=== PATIENT | female | born 1975 | race Hispanic/Latino ===

== ENCOUNTER 2017-08-07 20:36 | Emergency (ER) | payer BC, MEDICARE ==
--- NOTE | 2017-08-07 21:13 | RAD ---
LEFT ELBOW: 08/07/17 Four views. HISTORY: Fall with injury to elbow. There is a subtle radial neck fracture. There is associated joint effusion. No other abnormality. IMPRESSION: Radial neck fracture with associated joint effusion. POS: [facility]
[2017-08-07] MEDS ORDERED: traMADol HCl 50 MG TAB ONE (22:23)
== END 2017-08-07 23:18 | disposition home or self-care (01) ==
LOC: ERS 20:36
DX: S52.132A Displaced fracture of neck of left radius, initial encounter for closed fracture (principal); E11.9 Type 2 diabetes mellitus without complications; E78.5 Hyperlipidemia, unspecified; I10 Essential (primary) hypertension; Z79.899 Other long term (current) drug therapy; Z79.82 Long term (current) use of aspirin; W19.XXXA Unspecified fall, initial encounter; Y92.009 Unspecified place in unspecified non-institutional (private) residence as the place of occurrence of the external cause
CPT/HCPCS: 29105

== ENCOUNTER 2017-12-02 20:38 | Inpatient (IN) | payer BC, MEDICARE ==
[2017-12-02 22:42] LABS: Bilirubin Negative (Negative); Blood, Urine Trace (Negative); Clarity CLOUDY (Clear); Glucose, Urine (Dipstick) Negative (Negative); Leukocyte Small (Negative); Nitrite Positive (Negative); Protein, Urine (Dipstick) 30 mg/dL (Neg-Trace); Specific Gravity, Urine 1.011 (1.002-1.036); Urobilinogen 0.2 mg/dL (0.2-1.0); pH, Urine 5.5 (5.0-9.0)
[2017-12-02 22:45] LABS: Bacteria/HPF 2+ HPF (None Seen); Hyaline Casts/LPF 0-3 HYALINE CAST LPF (0-3 Hyaline); WBC/HPF 21-50 HPF (0-3)
--- NOTE | 2017-12-02 22:47 | RAD ---
RADIOGRAPH CHEST 2 VIEWS: 12/02/17 HISTORY: 42-year-old female with fever, bodyaches, and chills. FINDINGS: There is no air space density, pulmonary edema, pleural effusion, or pneumothorax. IMPRESSION: No acute pulmonary findings. jn [] POS: [facility]
[2017-12-02] MEDS ORDERED: Acetaminophen 325 MG TAB ONE (23:26)
[2017-12-02] MEDS ORDERED: Sodium Chloride 0.9% 100 ML ONE (23:26)
[2017-12-02] MEDS ORDERED: cefTRIAXone\\ROCEPHIN 2 GM VIAL ONE (23:26)
[2017-12-02] MEDS ORDERED: Ondansetron ODT 8 MG TAB ONE (23:26)
[2017-12-02 23:42] LABS: Hemoglobin 12.3 g/dL (12.0-16.0); Mean Corpuscular HGB CONC 33.2 g/dL (32.0-36.0); Mean Corpuscular Hemoglobin 31.2 pg (27.0-31.0); Mean Platelet Volume 8.4 fL (7.4-10.4); Platelet Count 191 thou/uL (130-400); RBC Distribution Width 12.3 % (11.5-14.5); Red Blood Cell (RBC) Count 3.94 mill/uL (4.20-5.40); White Blood Cell (WBC) Count 3.7 thou/uL (4.8-10.8)
[2017-12-03 00:01] LABS: ALT (SGPT) 21 U/L (8-55); AST (SGOT) 24 U/L (5-34); Albumin 4.3 g/dL (3.5-5.0); Alkaline Phosphatase 66 U/L (40-150); Anion Gap 15 mmol/L (10-20); BUN (Urea Nitrogen) 15 mg/dL (7.0-18.7); Bilirubin, Total 0.5 mg/dL (0.2-1.2); Calc. Creatinine Clearance 0 mL/min (70-130); Calcium 10.2 mg/dL (7.8-10.44); Carbon Dioxide 21 mmol/L (22-29); Chloride 104 mmol/L (98-107); Estimated GFR-MDRD 56; Globulin 2.9 g/dL (2.4-3.5); Glucose 236 mg/dL (70-105); Potassium 4.7 mmol/L (3.5-5.1); Protein, Total 7.2 g/dL (6.0-8.3); Sodium 135 mmol/L (136-145)
[2017-12-03 00:03] LABS: Eosinophils 8 % (0-10); Hypersemented Neutrophil SLIGHT; Lymphocytes 3 % (21-51); MDiff Complete? YES; Monocytes 3 % (0-10); Neutrophil 85 % (42-75); PLT Morphology Comment Appears Adequate
[2017-12-03 00:05] LABS: CKMB 2.5 ng/mL (0-6.6); Troponin I Less than 0.010 ng/mL (< 0.028)
[2017-12-03] MEDS ORDERED: Ondansetron ODT 8 MG TAB ONE (00:34)
[2017-12-03] MEDS ORDERED: Ondansetron HCl/PF 4 MG/2 ML Vial IVP PRN (01:00)
[2017-12-03] MEDS ORDERED: Promethazine HCl 25 MG/ML VIAL ONE (01:00)
[2017-12-03] MEDS ORDERED: Fentanyl 100 MCG/2 ML VIAL ONE (01:17)
[2017-12-03] MEDS ORDERED: HumaLOG 300 UNITS/3 ML VIAL SC PRN ×3 (01:28→09:30)
[2017-12-03] MEDS ORDERED: Dextrose 5% in Water 1,000 ML IV PRN (01:28)
[2017-12-03] MEDS ORDERED: Dextrose 50% Abboject 50 ML SYRINGE SLOW IVP PRN (01:28)
[2017-12-03] MEDS ORDERED: Ibuprofen 800 MG TAB ONE (02:47)
[2017-12-03 03:19] LABS: Hemoglobin 11.6 g/dL (12.0-16.0); Mean Corpuscular HGB CONC 32.5 g/dL (32.0-36.0); Mean Corpuscular Volume 95.5 fL (78.0-98.0); Mean Platelet Volume 8.9 fL (7.4-10.4); Platelet Count 129 thou/uL (130-400); RBC Distribution Width 12.4 % (11.5-14.5); Red Blood Cell (RBC) Count 3.75 mill/uL (4.20-5.40)
[2017-12-03 03:20] LABS: #Lymphocytes 0.1 thou/uL (1.20-3.40); #Monocytes 0.1 thou/uL (0.11-0.59); #Neutrophils 0.7 thou/uL (1.40-6.50); %Eosinophils 4.1 % (0.0-10.0); %Lymphocytes 13.5 % (21.0-51.0); %Neutrophils 73.4 % (42.0-75.0)
--- NOTE | 2017-12-03 03:30 | HP ---
PRIMARY CARE PHYSICIAN: Dr. Shazia Templeton. CODE STATUS: FULL code. TIME OF EVALUATION: 01:00 a.m. CC: fever, generalized weakness HISTORY OF PRESENT ILLNESS: This is a 42-year-old female patient with past medical history of hypertension; diabetes; kidney transplant in 04/2017; prior to that, the patient had dialysis 5.5 years. The patient came to the hospital having generalized weakness that was severe with nausea, vomiting, fever, chills. The symptoms started past Thursday, and has been gradually getting worse with no clear triggers, no alleviating factors. Transplant doctor has been called from ER by Dr. Crump, recommendation is to treat the patient here medically for infection. They will be available if needed. We will reconcile home meds also updated. Continue immunosuppression medication as well as the antibiotics for an infection. REVIEW OF SYSTEMS: Constitutional: The patient had fever, chills, generalized weakness. Respiratory: The patient denies cough. No sputum production. No shortness of breath. Cardiovascular: No chest pain, no palpitations. Gastrointestinal: The patient has nausea, vomiting. No diarrhea, no abdominal pain. 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 Not feeling lightheaded. Genitourinary : No burning on urination. Extremities: Right leg edema that is chronic. All other systems were reviewed and were negative except for the findings mentioned above. PAST MEDICAL HISTORY: The patient has a history of diabetes; obesity; end- stage renal disease, status post kidney transplant; hypertension; hyperlipidemia. PAST SURGICAL HISTORY: Left eye cataract, left arm dialysis shunt, left kidney transplant, history of tubal ligation. PSYCHIATRIC HISTORY: No previous psychiatric history. SOCIAL HISTORY: No alcohol, no drugs, no smoking history. FAMILY HISTORY: Father, diabetes. DRUG ALLERGIES: Allergies to AMLODIPINE. MEDICATIONS: Tacrolimus 0.5 mg, dose unknown; mycophenolate mofetil 500 mg, dose unknown; prednisone 500 mg daily; sulfamethoxazole and trimethoprim 400/80 mg, dose unknown; aspirin 81 mg daily; clonidine patch transdermal 0.1 mg in 24 hours, 1 patch daily; nifedipine 60 mg, dose unknown; metoprolol extended release 100 mg daily; pravastatin 20 mg daily; sertraline 50 mg daily; Ultram 50 mg q.6. hours p.r.n. PHYSICAL EXAMINATION: VITAL SIGNS: The patient presented with blood pressure 145/73 with heart rate 84, respiratory rate 16, temperature 99.6, T-max was 102.3. Blood pressure initially was in the high side with systolic 200 and diastolic 100. GENERAL APPEARANCE: The patient is alert, oriented, in mild distress due to chills, and no other symptoms. HEENT: Eye, normal conjunctivae. Dry oral mucosa. Anicteric. NECK: No JVD. RESPIRATORY: Bilateral air entry. No rales, no wheezing. Symmetric expansion. CARDIOVASCULAR: The patient is tachycardic. Regular rhythm. No murmurs, no gallop, no edema. ABDOMEN: Soft. Normal bowel sounds. MUSCULOSKELETAL: Baseline range of motion and strength. No tenderness. SKIN: Warm and intact. No pain, no rash, no redness. NEUROLOGIC: Baseline sensorium. No evidence of any new focal weakness. Baseline speech. Cranial nerve, sensory intact. PSYCHIATRIC: Good mood. No anxiety. Oriented x3. LABORATORY DATA: White count 3.7, hemoglobin 12.3, MCV 94, neutrophils 85. Chemistry: Sodium 135, carbon dioxide 21, glucose 236, GFR 56, creatinine 1.0. Anion gap is 15. Lactic acid is 1.5. LFTs are normal. Beta natriuretic peptide is 100.8. Urine was reviewed. The patient has white count of 35-50 in urine with small leukocyte esterase and positive urine for nitrite. X-ray was reviewed. The patient has no acute pulmonary findings. ASSESSMENT AND PLAN: 1. Sepsis. The patient presented with tachycardia, fever, leukopenia. Source is urinary tract infection. The patient is immunosuppressed due to medication for kidney transplant. We will reconcile home medications, continue antibiotics , adjust the treatment depending on cultures. 2. End-stage renal disease, status post kidney transplant. Transplant Center has been called and they have recommended for us to take the patient and treat for infection. They will be available if needed. Continue immunosuppression for kidney protection. 3. Uncontrolled diabetes. The patient has been placed on insulin, reconciled home meds, [id number] diet. 4. Nausea and vomiting, continue to be profuse. We will place the patient on symptomatic treatment. 5. Urinary tract infection. Reconcile antibiotics. We will start with broad spectrum given severe sepsis in an immunosuppressed host. 6. Uncontrolled hypertension. The patient had very high blood pressure on presentation; however, has dropped after being in the hospital. This could be related to worsening sepsis. For now, we will hold on blood pressure medications. This will need to be reconciled in the morning depending on the patient's clinical response. 7. Hypercholesterolemia. Low-cholesterol diet is advised. Reconcile home medications. 8. Deep venous thrombosis prophylaxis. 9. Hyponatremia. Sodium is 135, this is minimal. We will monitor. No need for any acute intervention. MTDD
[2017-12-03 04:16] LABS: Anion Gap 17 mmol/L (10-20); BUN (Urea Nitrogen) 15 mg/dL (7.0-18.7); Calc. Creatinine Clearance 0 mL/min (70-130); Calcium 8.6 mg/dL (7.8-10.44); Carbon Dioxide 13 mmol/L (22-29); Chloride 109 mmol/L (98-107); Estimated GFR-MDRD 59; Glucose 256 mg/dL (70-105); Potassium 4.1 mmol/L (3.5-5.1); Sodium 135 mmol/L (136-145)
[2017-12-03] MEDS ORDERED: Insulin NPH/Reg Insulin Hm 300 UNITS/3 ML VIAL SC SCH (09:00)
[2017-12-03] MEDS ORDERED: Famotidine 20 MG TAB PO PRN (09:12)
--- NOTE | 2017-12-03 09:32 | PDOC.PN ---
- Subjective Encounter Start Date: 12/03/17 (f/u sepsis) Encounter Start Time: 09:31 Subjective: Pt reports feeling better. Denies any pain, n/v currently -: reports some blood in her urine this morning - Objective Result Diagrams: 12/03/17 10:13 12/03/17 02:58 Phys Exam - Physical Examination Constitutional: NAD Respiratory: no wheezing, no rales, no rhonchi Cardiovascular: RRR, no significant murmur Gastrointestinal: soft, non-tender, no distention, positive bowel sounds Musculoskeletal: no edema Neurological: non-focal, moves all 4 limbs Skin: no rash Deviation from normal: skin over left fistula intact Dx/Plan (1) Sepsis Code(s): A41.9 - SEPSIS, UNSPECIFIED ORGANISM Status: Acute (2) S/P kidney transplant Code(s): Z94.0 - KIDNEY TRANSPLANT STATUS Status: Chronic (3) Diabetes Code(s): E11.9 - TYPE 2 DIABETES MELLITUS WITHOUT COMPLICATIONS Status: Chronic Qualifiers: Diabetes mellitus type: type 2 Diabetes mellitus residential insulin use: with residential use Diabetes mellitus complication status: with kidney complications (4) UTI (urinary tract infection) Status: Acute Qualifiers: Urinary tract infection type: site unspecified Hematuria presence: with hematuria Qualified Code(s): N39.0 - Urinary tract infection, site not specified; R31.9 - Hematuria, unspecified; R31.9 - Hematuria, unspecified (5) Hypertension Code(s): I10 - ESSENTIAL (PRIMARY) HYPERTENSION Status: Chronic Qualifiers: - Plan * sepsis presumed urinary source - follow cultures * Continue broad spectrum abx * Renal transplant * Continue anti-rejection meds * continue prednisone at current dosing - if hypotensive, may need to have stress dose steroids * blood pressure normal currently - lower side of normal * Hold bp meds, except metoprolol at lower dose with hold precautions * As bp increases - resume procardia and clonidine * Pt with n/v earlier - will reduce long acting insulin and use a sliding scale. Home is nph - 20 uits am, and 10 units pm. She uses humalog scheduled 10 units am, 15 units lunch and dinner plus correction scale. Will work back towards this depending on her PO intake * Consult renal/Dr. Cook * * dvt prophy - lovenox * gi prophy - not indicated, is on prn pepcid at home * code status full * * reviewed plan of care with patient and family, no questions or further needs at end of eval * pt at high risk in current condition. * * * Called by RN for positive blood culture - presumptive gram negative waylon.
[2017-12-03] MEDS: Sodium Chloride 0.9% 1,000 ML IV SCH ×3 (10:21→23:00)
[2017-12-03] MEDS: predniSONE 5 MG TAB PO SCH (10:22)
[2017-12-03] MEDS: Mycophenolate 250 MG CAP PO SCH ×2 (10:23→21:35)
[2017-12-03] MEDS: Tacrolimus 1 MG CAP PO SCH ×2 (10:23→21:35)
[2017-12-03] MEDS: Aspirin 81 mg Enteric Coated Tablet PO SCH (10:23)
[2017-12-03 10:26] LABS: Hemoglobin 10.8 g/dL (12.0-16.0); Mean Corpuscular HGB CONC 33.7 g/dL (32.0-36.0); Mean Corpuscular Hemoglobin 31.9 pg (27.0-31.0); Mean Corpuscular Volume 94.7 fL (78.0-98.0); Mean Platelet Volume 8.8 fL (7.4-10.4); Platelet Count 131 thou/uL (130-400); RBC Distribution Width 12.2 % (11.5-14.5); Red Blood Cell (RBC) Count 3.39 mill/uL (4.20-5.40); White Blood Cell (WBC) Count 4.2 thou/uL (4.8-10.8)
--- NOTE | 2017-12-03 10:31 | CON ---
DATE OF CONSULTATION: 12/03/2017 HISTORY OF PRESENT ILLNESS: Ms. Thompson is a 42-year-old female with known history of hyperten johann, diabetes mellitus, and ESRD. The patient was on dialysis for 5 years and got transplanted 04/16. She was admitted due to fever and chills secondary to presumed UTI. We are now being consulted for management of her renal transplant as well as for the immunosuppression as well as for intake of her immunosuppressive regimen. This morning she is feeling better. REVIEW OF SYSTEMS: Positive for fever and chills. Positive for dysuria, no urinary frequency, no di arrhea, no productive cough, positive for fever and chills, no headache, no diplopia, no sore throat, occasional joint pains. Positive for myalgia, no abdominal pain, no melena, no hematemesis, no head ache, no sore throat, no syncopal episode, no productive cough, no shortness of breath. HOME MEDICATIONS: CellCept 500 mg 2 tabs b.i.d., Levaquin 750 mg IV q.24 hours, Humalog sliding scal e, Humulin 70/30 20 units subcu b.i.d., Lovenox 40 mg subcu every day, Ecotrin 81 mg daily, ceftriaxo ne 1 gram IV daily, prednisone 5 mg once a day, Zocor 10 mg at bedtime, Zoloft 50 mg tab once a day, pravastatin 20 mg at bedtime, tacrolimus 3 mg in the morning, 2 mg at night, Bactrim-DS 1 tab daily, status post vancomycin. PAST MEDICAL HISTORY: 1. ESRD secondary to diabetic nephropathy - recently underwent a renal transplant. 2. Type 1 diabetes mellitus. 3. Hypertension. 4. Depression. 5. Hyperlipidemia. 6. Recently diagnosed UTI. 7. History of diabetic retinopathy. PAST SURGICAL HISTORY: 1. The patient is a status post repair of a traction retinal detachment - right eye by Dr. Thomas. 2. Status post AV fistula placement. 3. Status post cuffed hemodialysis catheter placement. 4. Status post bilateral tubal ligation. FAMILY HISTORY: Positive family history of ESRD. ALLERGIES: None. TRAUMA: None. IMMUNIZATIONS: Up to date. HOSPITALIZATIONS: Please see past medical history. SOCIAL HISTORY: The patient is , 2 children, lives in [place]. She used to work as a grocer y employee. Education; high school. Used to smoke, but currently no longer smoking. Alcohol; occas ional. No IV drug abuse. Status post blood transfusion. PHYSICAL EXAMINATION: VITAL SIGNS: Blood pressure is currently noted at 140/70, heart rate 70. GENERAL: Awake, alert, comfortable, not in distress. SKIN: Adequate turgor. HEENT: She has pinkish conjunctivae, anicteric sclerae. NECK: No neck mass, no carotid bruits, no JVD. CHEST: No deformities. LUNGS: Clear breath sounds, no wheezing, no crackles. HEART: Normal sinus rhythm. No murmur, no gallops or rubs. ABDOMEN: Globular, soft, nontender, no masses. EXTREMITIES: No edema, no deformities. NEUROLOGIC: Awake, oriented to 3 spheres. Moving all extremities. No tremors, no asterixis, no emily capri. LABORATORY: 12/03/2017 - White count is 1 with a hemoglobin of 11.6, hematocrit is 35.8, platelet co unt is 129,000. 12/02/2017 - White count was 3.7, hemoglobin 12.3, hematocrit 37. 12/03/2017 - Sodium 135, potassium 4.1, chloride 109, carbon dioxide 13 with a BUN of 15, creatinine 1.02, glucose 256, calcium 8.6. BNP is 108. Troponin I less than 0.010. Urinalysis shows white cells of 21-50, RBC 4-6, protein 30. Chest x-ray of 12/02/2017 shows no acute pulmonary findings. ASSESSMENT AND PLAN: 1. Status post cadaveric renal transplant. The patient received transplant on 04/2017, renal functi on remains stable. The plan is to continue current immunosuppressive regimen. We will recheck tacro limus level in a.m. Continue current prednisone and CellCept. 2. Decreased white count. This may be a lab error. However, we will recheck CBC again. If this is persistently low, we may need to adjust the CellCept at the present time. She is currently taking C ellCept at 1 gram p.o. b.i.d. We may need to consider decreasing this to 750 mg p.o. b.i.d. if the l eukopenia is persistent. 3. Urinary tract infection, on empiric IV antibiotics. Overall I agree with current management.
[2017-12-03] MEDS: Enoxaparin Sodium 40 MG/0.4 ML SYRINGE SC SCH (10:33)
[2017-12-03 10:53] LABS: Band 6 % (5-11); Dohle Bodies SLIGHT; Eosinophils 3 % (0-10); Lymphocytes 11 % (21-51); MDiff Complete? YES; Monocytes 10 % (0-10); Neutrophil 69 % (42-75); PLT Morphology Comment Appears Adequate; Polychromasia SLIGHT = 2-3 cells (100X) (0-2/hpf); Vacuoles SLIGHT
[2017-12-03 11:00] VITALS: BMI 34.6
--- NOTE | 2017-12-03 16:32 | PDOC.EVN ---
Event Note - Event Note Event Note: Rn reports that pt taking PO well, used her own insulin for lunch and is currently in the 200's - will order her usual insulin dosing for us to administer or her.
[2017-12-03] MEDS: HumaLOG 300 UNITS/3 ML VIAL SC SCH (17:32)
--- NOTE | 2017-12-03 19:18 | PDOC.EVN ---
Event Note - Event Note Event Note: Given that pt has gram negative bacteria in blood and urine, will d/c the Vancomycin with the goal of minimizing nephrotoxic agents. Discussed with Dr. Cook this as well as d/c the Septra for now - which is a prophylactic antibiotic for the transplant. Pt will continue to be covered with levaquin and rocephin.
[2017-12-03] MEDS ORDERED: Metoprolol Tartrate 50 MG TAB PO SCH (21:00)
[2017-12-03] MEDS ORDERED: NPH, Human Insulin Isophane 300 UNIT/3 ML VIAL SC SCH (21:00)
[2017-12-03] MEDS ORDERED: Sulfameth/Trimethoprim DS 800-160mg TAB PO SCH (21:00)
[2017-12-03] MEDS ORDERED: Metoprolol Tartrate 100 MG TAB PO SCH ×3 (21:00→21:45)
[2017-12-03] MEDS ORDERED: Simvastatin 5 MG TAB PO SCH (21:00)
[2017-12-03] MEDS ORDERED: Vancomycin HCl 1.25 GM in Sodium Chloride 0.9% 250 ML 250 ML IVPB SCH (21:00)
[2017-12-03] MEDS ORDERED: Sodium Chloride 0.9% 1,000 ML IV SCH (21:15)
[2017-12-03] MEDS: Pravastatin Sodium 20 MG TAB PO SCH (21:34)
[2017-12-03] MEDS: NPH, Human Insulin Isophane 300 UNIT/3 ML VIAL SC SCH (21:36)
[2017-12-03] MEDS: HumaLOG 300 UNITS/3 ML VIAL SC PRN (21:44)
[2017-12-04] MEDS: Acetaminophen 325 MG TAB PO PRN ×3 (00:17→20:10)
[2017-12-04] MEDS: cloNIDine 0.1 MG TAB PO PRN (00:17)
[2017-12-04] MEDS ORDERED: cefTRIAXone\\ROCEPHIN 1 GM in Sodium Chloride 0.9% 100 ML IVPB SCH (00:30)
[2017-12-04 04:11] LABS: ALT (SGPT) 16 U/L (8-55); AST (SGOT) 24 U/L (5-34); Albumin 3.4 g/dL (3.5-5.0); Alkaline Phosphatase 47 U/L (40-150); Anion Gap 13 mmol/L (10-20); BUN (Urea Nitrogen) 16 mg/dL (7.0-18.7); Bilirubin, Total 0.3 mg/dL (0.2-1.2); Calc. Creatinine Clearance 97 mL/min (70-130); Calcium 8.6 mg/dL (7.8-10.44); Carbon Dioxide 18 mmol/L (22-29); Chloride 112 mmol/L (98-107); Estimated GFR-MDRD 66; Globulin 2.3 g/dL (2.4-3.5); Glucose 155 mg/dL (70-105); Protein, Total 5.7 g/dL (6.0-8.3); Sodium 139 mmol/L (136-145)
[2017-12-04 05:56] LABS: Band 12 % (5-11); Eosinophils 2 % (0-10); Hemoglobin 10.4 g/dL (12.0-16.0); Lymphocytes 11 % (21-51); MDiff Complete? YES; Mean Corpuscular HGB CONC 32.6 g/dL (32.0-36.0); Mean Corpuscular Hemoglobin 31.3 pg (27.0-31.0); Mean Corpuscular Volume 96.1 fL (78.0-98.0); Neutrophil 75 % (42-75); Platelet Count 132 thou/uL (130-400); RBC Distribution Width 12.4 % (11.5-14.5); Red Blood Cell (RBC) Count 3.33 mill/uL (4.20-5.40); White Blood Cell (WBC) Count 3.1 thou/uL (4.8-10.8)
--- NOTE | 2017-12-04 07:35 | PRG ---
DATE OF SERVICE: 12/04/2017 SUBJECTIVE: Ms. Thompson is a 42-year-old female who is status post renal transplant, admitted for a UTI/Escherichia coli bacteremia and being followed by the Renal Service for her immunosuppressi ve regimen management. She is complaining of some bloatedness today. However, denies any chest pain , shortness of breath. Currently receiving IV antibiotics. PHYSICAL EXAMINATION: VITAL SIGNS: Blood pressure is 145/49, heart rate 87, respiratory rate 18, temperature 99.7, pulse o x 99%. GENERAL: Awake, alert, comfortable, not in distress. SKIN: Adequate turgor. HEENT: Pinkish conjunctivae. Anicteric sclerae. NECK: No neck mass, no carotid bruits, no JVD. CHEST: No deformities. LUNGS: Clear breath sounds. No wheezing, no crackles. HEART: Normal sinus rhythm. No murmur, no gallops or rubs. ABDOMEN: Globular, soft, nontender, no masses. EXTREMITIES: No edema, no deformities. Please note renal allograft is nontender. MEDICATIONS: 12/04/2017 - Reviewed. LABORATORY: 12/04/2017 - White count 3.1, hemoglobin 10.4, sodium 139, potassium 4, chloride 112, ca rbon dioxide 18, BUN 16, creatinine 0.93, glucose 155, calcium 8.6, AST 24, ALT 16, albumin 3.4. Blo od cultures showed E. coli. ASSESSMENT AND PLAN: 1. Escherichia coli bacteremia - on IV antibiotics. Currently on Rocephin and Levaquin. 2. Status post cadaveric renal transplant, stable. Renal function is within normal. Continue curre nt immunosuppressive regimen. No changes to be made. Bactrim-DS prophylactic placed on hold tempora rily. 3. Bloatedness - will keep the IV fluid to Hep-Lock. Recheck a CMP and CBC in a.m.
[2017-12-04] MEDS ORDERED: NPH, Human Insulin Isophane 300 UNIT/3 ML VIAL SC SCH (09:00)
[2017-12-04] MEDS: Mycophenolate 250 MG CAP PO SCH ×2 (09:22→20:10)
[2017-12-04] MEDS: Tacrolimus 1 MG CAP PO SCH ×2 (09:22→21:05)
[2017-12-04] MEDS: Enoxaparin Sodium 40 MG/0.4 ML SYRINGE SC SCH (09:23)
[2017-12-04] MEDS: predniSONE 5 MG TAB PO SCH (09:23)
[2017-12-04] MEDS: Metoprolol Tartrate 100 MG TAB PO SCH ×2 (09:23→21:05)
[2017-12-04] MEDS: Aspirin 81 mg Enteric Coated Tablet PO SCH (09:23)
[2017-12-04] MEDS: HumaLOG 300 UNITS/3 ML VIAL SC SCH ×3 (09:30→23:17)
[2017-12-04] MEDS: NPH, Human Insulin Isophane 300 UNIT/3 ML VIAL SC SCH ×2 (09:30→22:04)
[2017-12-04 09:45] LABS: Anion Gap 21 mmol/L (10-20); BUN (Urea Nitrogen) 17 mg/dL (7.0-18.7); Calc. Creatinine Clearance 88 mL/min (70-130); Calcium 12.6 mg/dL (7.8-10.44); Carbon Dioxide 12 mmol/L (22-29); Chloride 112 mmol/L (98-107); Estimated GFR-MDRD 59; Glucose 242 mg/dL (70-105); Potassium 5.9 mmol/L (3.5-5.1); Sodium 139 mmol/L (136-145)
[2017-12-04 10:22] LABS: Albumin 3.6 g/dL (3.5-5.0); BUN/Creatinine Ratio 15.74
[2017-12-04 10:25] LABS: Phosphorus 1.7 mg/dL (2.3-4.7)
[2017-12-04 12:13] LABS: Albumin 3.6 g/dL (3.5-5.0); Anion Gap 19 mmol/L (10-20); BUN (Urea Nitrogen) 18 mg/dL (7.0-18.7); BUN/Creatinine Ratio 17.82; Calc. Creatinine Clearance 89 mL/min (70-130); Calcium 9.9 mg/dL (7.8-10.44); Carbon Dioxide 14 mmol/L (22-29); Chloride 114 mmol/L (98-107); Estimated GFR-MDRD 60; Glucose 192 mg/dL (70-105); Phosphorus 1.5 mg/dL (2.3-4.7); Potassium 6.5 mmol/L (3.5-5.1); Sodium 140 mmol/L (136-145)
[2017-12-04] MEDS ORDERED: Sodium Phosphate 15 MMOL in Sodium Chloride 0.9% 250 ML 250 ML IVPB SCH (12:45)
[2017-12-04] MEDS ORDERED: Sodium Bicarbonate Tab 325 MG TAB PO SCH (12:45)
[2017-12-04] MEDS ORDERED: Meropenem 1 GM in Sodium Chloride 0.9% 100 ML IVPB SCH (14:00)
[2017-12-04 14:52] LABS: CO2 Tension 28.9 mmHg (35.0-45.0); O2 Tension (PaO2) 94.2 mmHg (80.0-100.0); pH, Arterial 7.48 (7.35-7.45)
[2017-12-04 14:53] LABS: Actual Bicarbonate (HCO3a) 21.2 mEq/L (22-28); Base Excess (BEa) -1.3 mEq/L (-2.0 to +3.0); Hemoglobin (Hb) 11.4 g/dL (12.0-16.0)
[2017-12-04 14:54] LABS: ALV-art Gradient 19.405 (0-20); Calcium, Ionized 1.2 mmol/L (1.12-1.30); Puncture Site ARTERIAL
[2017-12-04] MEDS: MEROPENEM 1 GM/50 ML 1 GM in Premix Bag 1 BAG IVPB SCH ×2 (15:46→23:22)
--- NOTE | 2017-12-04 17:30 | ULT ---
ADDENDUM: A resistive index within the arcuate arteries of the left kidney measured 0.77 and below. Resistive i ndex within the left proximal renal artery was slightly elevated at 0.85; however, the velocity withi n the left renal artery appeared within normal limits. POS: [facility]
[2017-12-04 17:55] LABS: Anion Gap 14 mmol/L (10-20); BUN (Urea Nitrogen) 13 mg/dL (7.0-18.7); Calc. Creatinine Clearance 107 mL/min (70-130); Calcium 9.3 mg/dL (7.8-10.44); Carbon Dioxide 18 mmol/L (22-29); Chloride 108 mmol/L (98-107); Estimated GFR-MDRD 74; Glucose 88 mg/dL (70-105); Potassium 4.4 mmol/L (3.5-5.1); Sodium 136 mmol/L (136-145)
[2017-12-04] MEDS: Pravastatin Sodium 20 MG TAB PO SCH (20:10)
[2017-12-04] MEDS: Sodium Bicarbonate Tab 325 MG TAB PO SCH (20:10)
--- NOTE | 2017-12-04 20:32 | CON ---
DATE OF CONSULTATION: 12/04/2017 REASON FOR CONSULTATION: Urinary tract infection. HISTORY OF PRESENT ILLNESS: Ms. Thompson is a 42-year-old lady who has history of hypertension, type 2 diabetes, previously on hemodialysis for management of end- stage renal disease secondary to type 2 diabetes, who underwent a kidney transplant in 04/2017, so this is seven months after the transplantation when she developed generalized weakness, fever and chills and vomiting without dysuria or pain. The initial findings included a BP 140/70, heart rate 84, temperature 99.6 with T-max of 102.3. The patient was alert with chills at the time of the exam. Lungs were clear. Heart exam showed tachycardia, but no murmurs. Abdomen is soft and nontender. Initial white cell count 3.7, hemoglobin 12.3, MCV 94, neutrophils 85%, and a creatinine of 1.0. Lactic acid 1.5. Urinalysis with 35-50 WBCs. The patient was started on Rocephin and levofloxacin and she has remained with intermittent temperature elevation since admission. One set of blood cultures revealed E. coli and urine culture with the same organism with pending susceptibility profile. Currently, Ms. Thompson is still feeling unwell, but a little bit better than on admission. No headaches, no change in visual symptoms related to diabetic retinopathy. No shortness of breath or chest pain, no abdominal pain, no dysuria, no diarrhea, no joint symptoms. PAST MEDICAL HISTORY: Type 2 diabetes, hypertension, obesity, end-stage renal disease, previously on hemodialysis through an AV fistula in left upper extremity. Recent kidney transplant about 7 months before this admission. PAST SURGICAL HISTORY: Also includes cataract operation, retinal laser therapy , dialysis AV fistula placement, tubal ligation. SOCIAL HISTORY: Never a smoker, no alcoholic beverage use. FAMILY HISTORY: Diabetes mellitus, type 2. ALLERGIES: NORVASC. MEDICATION LIST: At home, tacrolimus, mycophenolate, prednisone, sulfamethoxazole, trimethoprim, clonidine, nifedipine, metoprolol, pravastatin, Zoloft, and Ultram. PHYSICAL EXAMINATION: VITAL SIGNS: T-max of 101.8 recently recorded and blood pressure 170/60, pulse 107, respirations 20, and O2 saturation 94%. SKIN: No areas of skin breakdown. The patient has a peripheral IV access and does not have a Arita catheter. No lymphadenopathy. HEENT: Ocular movements are conjugate. Oral cavity is normal. NECK: Supple. LUNGS: Symmetric air entry. HEART: S1, S2, regular rate. No S3, S4. ABDOMEN: Soft and not distended. No ascites. No bladder distention. The allograft is in the left lower quadrant and is not tender to palpation. EXTREMITIES: No joint inflammatory activity. Pulses 1+ in dorsalis pedis. Plantar responses are flexure. Strength in upper and lower extremities is preserved. NEUROLOGIC: Cognitive function appears to be intact. LABORATORY DATA: White cell count ranging from 3.7-3.1, hemoglobin 10, platelets 131 with 12% bands. Chemistry with a sodium 140, creatinine 1.01, calcium was 12.6 and now 9.9. Liver profile normal. Albumin 3.4. Urinalysis with 21-50 WBCs. ASSESSMENT: Type 2 diabetes with recent renal transplant, on immunosuppressive medication. This is the 7th month after transplant approximately, now presents with evidence of urinary tract infection with bacteremia. DISCUSSION: Patients with renal transplant have a risk for urinary tract infection and usually in the first 6 months of transplantation and they have been managed with prophylactic antimicrobial therapy, although it is not yet demonstrated to be associated with decrease in the risks of invasive infections. In her case, she is taking trimethoprim and sulfamethoxazole for prophylaxis of Pneumocystis carinii pneumonia as well. The E. coli that she has therefore could be resistant to the usual antimicrobials and even an ESBL phenotype. About 30% of patients have following renal transplantation in the first 6 months may develop urinary tract infections and it is important to evaluate for possible structural issues and we will order an ultrasound of her kidneys and a transplant kidney as well as a postvoid residual check to rule out urinary retention. The patient will be switched to meropenem until we have susceptibility results in view of the risk of ESBL and E. coli. If there are no structural abnormalities, then continue antimicrobials according to susceptibility results for approximately 2 weeks. If there are structural abnormalities, then we will have to consult Urology. MARY
--- NOTE | 2017-12-04 20:35 | PDOC.PN ---
- Subjective Encounter Start Date: 12/04/17 Encounter Start Time: 11:00 Patient seen and examined for sepsis/UTI. No new complaints. No overnight events - Objective MAR Reviewed: Yes Vital Signs & Weight: Vital Signs (12 hours) Temp Pulse Resp BP Pulse Ox 12/04/17 15:29 99.6 F 107 H 20 176/68 H 94 L 12/04/17 11:34 98.9 F 90 24 H 167/58 H 94 L Weight Weight 171 lb 4.8 oz I&O: 12/03/17 12/04/17 12/05/17 06:59 06:59 06:59 Intake Total 1200 Balance 1200 Result Diagrams: 12/05/17 03:52 12/05/17 03:52 Additional Labs: Accuchecks 12/04/17 12/04/17 12/04/17 17:42 10:45 09:28 POC Glucose 73 209 H 213 H 12/04/17 05:44 POC Glucose 149 H EKG Reviewed by me: Yes (Tele SR) Phys Exam - Physical Examination Constitutional: NAD Respiratory: no wheezing, no rhonchi Cardiovascular: RRR, no rub Gastrointestinal: soft, non-tender, positive bowel sounds Musculoskeletal: no edema Neurological: moves all 4 limbs Dx/Plan (1) Sepsis Code(s): A41.9 - SEPSIS, UNSPECIFIED ORGANISM Status: Acute (2) UTI (urinary tract infection) Status: Acute (3) Bacteremia Code(s): R78.81 - BACTEREMIA Status: Acute (4) DM2 (diabetes mellitus, type 2) Status: Chronic Qualifiers: Chronic kidney disease stage: stage 3 (moderate) (5) S/P kidney transplant Code(s): Z94.0 - KIDNEY TRANSPLANT STATUS Status: Chronic (6) Hypertension Code(s): I10 - ESSENTIAL (PRIMARY) HYPERTENSION Status: Chronic Qualifiers: - Plan DVT proph w/SCDs Cont Levaquin -: Cont immunosuppressants -: Cont to monitor -: Nephrology following -: Consult ID Review of Systems - Review of Systems Respiratory: negative: Cough, Dry, Shortness of Breath, Hemoptysis, SOB with Excertion, Pleuritic Pain, Sputum, Wheezing Cardiovascular: negative: chest pain, palpitations, orthopnea, paroxysmal nocturnal dyspnea, edema, light headedness, other - Medications/Allergies Allergies/Adverse Reactions: Allergies Allergy/AdvReac Type Severity Reaction Status Date / Time amlodipine AdvReac HYPOTENSION Verified 12/03/17 10:55 (SENSATIVITY) Medications: Current Medications Acetaminophen (Tylenol) 650 mg PO Q4H PRN PRN Reason: Headache/Fever or Pain Last Admin: 12/04/17 20:10 Dose: 650 mg Aspirin (Ecotrin) 81 mg PO DAILY [facility] Last Admin: 12/04/17 09:23 Dose: 81 mg Clonidine (Catapres) 0.1 mg PO BIDPRN PRN PRN Reason: SBP GREATER THAN 160 Last Admin: 12/04/17 00:17 Dose: 0.1 mg Dextrose/Water (Dextrose 50%) 25 gm SLOW IVP PRN PRN PRN Reason: Hypoglycemia Famotidine (Pepcid) 20 mg PO HS PRN PRN Reason: Dyspepsia Glucagon (Glucagon) 1 mg IM PRN PRN PRN Reason: Hypoglycemia Levofloxacin 750 mg/ Device 150 mls @ 100 mls/hr IVPB Q24HR [facility] Last Admin: 12/04/17 01:11 Dose: 150 mls Dextrose/Water (D5w) 1,000 mls @ 0 mls/hr IV .Q0M PRN; As Directed PRN Reason: Hypoglycemia Meropenem 1 gm/ Device 50 mls @ 100 mls/hr IVPB Q8HR [facility] Last Admin: 12/04/17 15:46 Dose: 50 mls Insulin Human Lispro (Humalog) 10 units SC 0900 [facility] Last Admin: 12/04/17 09:30 Dose: 10 unit Insulin Human Lispro (Humalog) 15 units SC 1200 [facility] Last Admin: 12/04/17 13:10 Dose: 15 unit Insulin Human Lispro (Humalog) 15 units SC 1700 [facility] Last Admin: 12/03/17 17:32 Dose: 15 unit Insulin Human Lispro (Humalog) 0 units SC .MILD SLIDING SCALE PRN PRN Reason: Mild Correctional Scale Last Admin: 12/03/17 21:44 Dose: 3 unit Insulin Human NPH (Humulin N) 10 unit SC HS [facility] Last Admin: 12/03/17 21:36 Dose: 10 unit Insulin Human NPH (Humulin N) 20 unit SC DAILY [facility] Last Admin: 12/04/17 09:30 Dose: 20 unit Metoprolol Tartrate (Lopressor) 100 mg PO BID [facility] Last Admin: 12/04/17 09:23 Dose: 100 mg Miscellaneous Medication (Pharmacy To Dose) 1 each IVPB ONE PRN PRN Reason: Pharmacy to dose Stop: 01/03/18 11:00 Mycophenolate Mofetil (Cellcept) 1,000 mg PO BID [facility] Last Admin: 12/04/17 20:10 Dose: 1,000 mg Ondansetron HCl (Zofran) 4 mg IVP Q6H PRN PRN Reason: Nausea/Vomiting Last Admin: 12/04/17 01:13 Dose: 4 mg Pravastatin Sodium (Pravachol) 20 mg PO HS [facility] Last Admin: 12/04/17 20:10 Dose: 20 mg Prednisone (Prednisone) 10 mg PO DAILY [facility] Sertraline HCl (Zoloft) 50 mg PO DAILY [facility] Last Admin: 12/04/17 09:23 Dose: 50 mg Sodium Bicarbonate (Bicarbonate, Sodium) 650 mg PO TID [facility] Last Admin: 12/04/17 20:10 Dose: 650 mg Sodium Chloride (Flush - Normal Saline) 10 ml IVF Q12HR [facility] Last Admin: 12/04/17 20:14 Dose: 10 ml Sodium Chloride (Flush - Normal Saline) 10 ml IVF PRN PRN PRN Reason: Saline Flush Tacrolimus (Prograf) 3 mg PO DAILY [facility] Last Admin: 12/04/17 09:22 Dose: 3 mg Tacrolimus (Prograf) 2 mg PO HS [facility] Last Admin: 12/03/17 21:35 Dose: 2 mg Valganciclovir (Valcyte) 450 mg PO DAILY [facility] Last Admin: 12/04/17 09:23 Dose: 450 mg
[2017-12-05] MEDS: cloNIDine 0.1 MG TAB PO PRN (00:50)
[2017-12-05 04:59] LABS: Lactic Acid 1.4 mmol/L (0.5-2.2)
[2017-12-05 05:02] LABS: ALT (SGPT) 21 U/L (8-55); AST (SGOT) 30 U/L (5-34); Albumin 3.4 g/dL (3.5-5.0); Alkaline Phosphatase 49 U/L (40-150); Anion Gap 13 mmol/L (10-20); BUN (Urea Nitrogen) 13 mg/dL (7.0-18.7); Bilirubin, Total 0.3 mg/dL (0.2-1.2); Calc. Creatinine Clearance 98 mL/min (70-130); Calcium 8.5 mg/dL (7.8-10.44); Carbon Dioxide 18 mmol/L (22-29); Chloride 108 mmol/L (98-107); Estimated GFR-MDRD 67; Globulin 2.6 g/dL (2.4-3.5); Glucose 176 mg/dL (70-105); Potassium 4.1 mmol/L (3.5-5.1); Sodium 135 mmol/L (136-145)
[2017-12-05] MEDS: MEROPENEM 1 GM/50 ML 1 GM in Premix Bag 1 BAG IVPB SCH (06:10)
[2017-12-05] MEDS: HumaLOG 300 UNITS/3 ML VIAL SC PRN (06:10)
[2017-12-05 06:17] LABS: Band 12 % (5-11); Eosinophils 5 % (0-10); Lymphocytes 6 % (21-51); MDiff Complete? YES; Mean Corpuscular HGB CONC 33.1 g/dL (32.0-36.0); Mean Corpuscular Volume 93.8 fL (78.0-98.0); Mean Platelet Volume 9.5 fL (7.4-10.4); Monocytes 13 % (0-10); Neutrophil 64 % (42-75); Platelet Count 137 thou/uL (130-400); RBC Distribution Width 12.1 % (11.5-14.5); Red Blood Cell (RBC) Count 3.55 mill/uL (4.20-5.40)
[2017-12-05] MEDS: Acetaminophen 325 MG TAB PO PRN ×2 (06:24→21:51)
[2017-12-05] MEDS: NIFEdipine XL 60 MG TAB PO SCH (09:05)
[2017-12-05] MEDS: Metoprolol Tartrate 100 MG TAB PO SCH ×2 (09:06→21:34)
[2017-12-05] MEDS: Sodium Bicarbonate Tab 325 MG TAB PO SCH ×3 (09:06→21:34)
[2017-12-05] MEDS: predniSONE 5 MG TAB PO SCH (09:07)
[2017-12-05] MEDS: Aspirin 81 mg Enteric Coated Tablet PO SCH (09:07)
[2017-12-05] MEDS: Tacrolimus 1 MG CAP PO SCH ×2 (09:07→21:35)
[2017-12-05] MEDS: Mycophenolate 250 MG CAP PO SCH ×2 (09:08→21:34)
[2017-12-05] MEDS: HumaLOG 300 UNITS/3 ML VIAL SC SCH ×3 (09:09→16:55)
[2017-12-05] MEDS: NPH, Human Insulin Isophane 300 UNIT/3 ML VIAL SC SCH ×2 (09:11→21:55)
--- NOTE | 2017-12-05 10:21 | PDOC.PN ---
- Subjective Encounter Start Date: 12/05/17 Encounter Start Time: 10:28 Patient seen and examined. She is 7 months s/p Renal transplant and has been admitted for UTI leading to sepsis and also found to have E. Coli bacteremia. Started on IV meropenem and improving clinically. No complains today and no acute events overnight. Infectious disease on board. - Objective MAR Reviewed: Yes Vital Signs & Weight: Vital Signs (12 hours) Temp Pulse Resp BP BP Pulse Ox 12/05/17 09:05 86 12/05/17 08:14 99.8 F H 86 18 100 12/05/17 07:00 99.4 F 98 18 142/60 H 100 12/05/17 04:20 99.8 F H 86 18 164/54 H 100 12/05/17 00:50 167/69 H 12/05/17 00:40 99.3 F 85 18 167/69 H 100 Weight Weight 164 lb 9 oz I&O: 12/04/17 12/05/17 12/06/17 06:59 06:59 06:59 Intake Total 1200 910 120 Balance 1200 910 120 Result Diagrams: 12/05/17 03:52 12/05/17 03:52 Additional Labs: Accuchecks 12/05/17 12/05/17 12/04/17 06:11 02:44 22:04 POC Glucose 228 H 141 H 136 H 12/04/17 12/04/17 12/04/17 20:45 17:42 10:45 POC Glucose 111 H 73 209 H Phys Exam - Physical Examination Constitutional: NAD HEENT: moist MMs, sclera anicteric Neck: supple, full ROM Respiratory: no wheezing, no rales, no rhonchi, clear to auscultation bilateral Cardiovascular: RRR, no significant murmur, no rub Gastrointestinal: soft, non-tender, no distention, positive bowel sounds Musculoskeletal: no edema, pulses present Neurological: non-focal, moves all 4 limbs Psychiatric: normal affect, A&O x 3 Skin: no rash, normal turgor Dx/Plan (1) Sepsis Code(s): A41.9 - SEPSIS, UNSPECIFIED ORGANISM Status: Acute Qualifiers: Sepsis type: Escherichia coli Qualified Code(s): A41.51 - Sepsis due to Escherichia coli [E. coli] Comment: Improving with treatment- on meropenem. (2) Diabetes Code(s): E11.9 - TYPE 2 DIABETES MELLITUS WITHOUT COMPLICATIONS Status: Chronic Qualifiers: Diabetes mellitus type: type 2 Diabetes mellitus rat exterminator insulin use: with rat exterminator use Diabetes mellitus complication status: with kidney complications Diabetes mellitus complication detail: with chronic kidney disease Chronic kidney disease stage: stage 1 Qualified Code(s): E11.22 - Type 2 diabetes mellitus with diabetic chronic kidney disease; N18.1 - Chronic kidney disease, stage 1; N18.1 - Chronic kidney disease, stage 1; Z79.4 - intermediate (current) use of insulin; Z79.4 - terminal make up operator (current) use of insulin; Z79.4 - terminal make up operator (current) use of insulin; Z79.4 - intermediate (current) use of insulin Comment: Fair control. Monitor accuchecks and adjust regimen as necessary. (3) S/P kidney transplant Code(s): Z94.0 - KIDNEY TRANSPLANT STATUS Status: Chronic Comment: Continue home medications. (4) Hypertension Code(s): I10 - ESSENTIAL (PRIMARY) HYPERTENSION Status: Chronic Qualifiers: Hypertension type: secondary to other renal disorders Qualified Code(s): I15.1 - Hypertension secondary to other renal disorders; N28.89 - Other specified disorders of kidney and ureter; N28.89 - Other specified disorders of kidney and ureter Comment: Fair control. Restart home medications as tolerated. (5) Leucopenia Code(s): D72.819 - DECREASED WHITE BLOOD CELL COUNT, UNSPECIFIED Status: Acute Qualifiers: Leukopenia type: lymphocytopenia Qualified Code(s): D72.810 - Lymphocytopenia - Plan cont current plan of care, continue antibiotics, out of bed/ambulate Review of Systems - Medications/Allergies Allergies/Adverse Reactions: Allergies Allergy/AdvReac Type Severity Reaction Status Date / Time amlodipine AdvReac HYPOTENSION Verified 12/03/17 10:55 (SENSATIVITY) Medications: Current Medications Acetaminophen (Tylenol) 650 mg PO Q4H PRN PRN Reason: Headache/Fever or Pain Last Admin: 12/05/17 06:24 Dose: 650 mg Aspirin (Ecotrin) 81 mg PO DAILY [facility] Last Admin: 12/05/17 09:07 Dose: 81 mg Clonidine (Catapres) 0.1 mg PO BIDPRN PRN PRN Reason: SBP GREATER THAN 160 Last Admin: 12/05/17 00:50 Dose: 0.1 mg Dextrose/Water (Dextrose 50%) 25 gm SLOW IVP PRN PRN PRN Reason: Hypoglycemia Famotidine (Pepcid) 20 mg PO HS PRN PRN Reason: Dyspepsia Glucagon (Glucagon) 1 mg IM PRN PRN PRN Reason: Hypoglycemia Dextrose/Water (D5w) 1,000 mls @ 0 mls/hr IV .Q0M PRN; As Directed PRN Reason: Hypoglycemia Meropenem 1 gm/ Device 50 mls @ 100 mls/hr IVPB Q8HR [facility] Last Admin: 12/05/17 06:10 Dose: 50 mls Insulin Human Lispro (Humalog) 10 units SC 0900 [facility] Last Admin: 12/05/17 09:09 Dose: 10 unit Insulin Human Lispro (Humalog) 15 units SC 1200 [facility] Last Admin: 12/04/17 13:10 Dose: 15 unit Insulin Human Lispro (Humalog) 15 units SC 1700 [facility] Last Admin: 12/04/17 23:17 Dose: Not Given Insulin Human Lispro (Humalog) 0 units SC .MILD SLIDING SCALE PRN PRN Reason: Mild Correctional Scale Last Admin: 12/05/17 06:10 Dose: 3 unit Insulin Human NPH (Humulin N) 10 unit SC HS [facility] Last Admin: 12/04/17 22:04 Dose: 10 unit Insulin Human NPH (Humulin N) 20 unit SC DAILY [facility] Last Admin: 12/05/17 09:11 Dose: 20 unit Metoprolol Tartrate (Lopressor) 100 mg PO BID [facility] Last Admin: 12/05/17 09:06 Dose: 100 mg Miscellaneous Medication (Pharmacy To Dose) 1 each IVPB ONE PRN PRN Reason: Pharmacy to dose Stop: 01/03/18 11:00 Mycophenolate Mofetil (Cellcept) 1,000 mg PO BID [facility] Last Admin: 12/05/17 09:08 Dose: 1,000 mg Nifedipine (Procardia Xl) 120 mg PO DAILY [facility] Last Admin: 12/05/17 09:05 Dose: 120 mg Ondansetron HCl (Zofran) 4 mg IVP Q6H PRN PRN Reason: Nausea/Vomiting Last Admin: 12/04/17 01:13 Dose: 4 mg Pravastatin Sodium (Pravachol) 20 mg PO HS [facility] Last Admin: 12/04/17 20:10 Dose: 20 mg Prednisone (Prednisone) 10 mg PO DAILY [facility] Last Admin: 12/05/17 09:07 Dose: 10 mg Sertraline HCl (Zoloft) 50 mg PO DAILY [facility] Last Admin: 12/05/17 09:08 Dose: 50 mg Sodium Bicarbonate (Bicarbonate, Sodium) 650 mg PO TID [facility] Last Admin: 12/05/17 09:06 Dose: 650 mg Sodium Chloride (Flush - Normal Saline) 10 ml IVF Q12HR [facility] Last Admin: 12/05/17 09:11 Dose: 10 ml Sodium Chloride (Flush - Normal Saline) 10 ml IVF PRN PRN PRN Reason: Saline Flush Last Admin: 12/05/17 06:15 Dose: 10 ml Tacrolimus (Prograf) 3 mg PO DAILY [facility] Last Admin: 12/05/17 09:07 Dose: 3 mg Tacrolimus (Prograf) 2 mg PO [facility] Last Admin: 12/04/17 21:05 Dose: 2 mg Valganciclovir (Valcyte) 450 mg PO DAILY [facility] Last Admin: 12/05/17 09:09 Dose: 450 mg
--- NOTE | 2017-12-05 10:43 | CON ---
DATE OF CONSULTATION: 12/04/2017 SERVICE: Pulmonary Medicine. REASON FOR CONSULTATION: IMCU patient. HISTORY OF PRESENT ILLNESS: The patient is a 42-year-old female with past medical history s ignificant for end-stage renal disease. She was on hemodialysis for a period of 5 years until she go t a kidney transplant in 04/2017. Since that time, she has been off of dialysis and has not had any significant complications. She is on immunosuppressing medications. She presented to the hospital w ith a 3-day history of increasing fevers, malaise, and on presentation to the emergency department, w as found to have marginal blood pressures. She ended up getting a couple of liters of fluid. Overni ght, blood pressures firmed up very nicely. She does not feel septic any longer. Her energy has imp roved a little bit. She does not have a full appetite yet, but it is picking up. Otherwise, there h as been no interval change to her condition. PAST MEDICAL HISTORY: 1. Type 2 diabetes mellitus. 2. End-stage renal disease, status post kidney transplant in 04/2017. 3. Obesity. 4. Hypertension. 5. Dyslipidemia. PAST SURGICAL HISTORY: 1. Cataract extraction from left eye. 2. Left arm dialysis shunt. 3. Left kidney transplant. 4. Tubal ligation. SOCIAL HISTORY: Negative for alcohol, tobacco or illicit drug use. She has no exposure to chemicals , dust asbestos or tuberculosis. FAMILY HISTORY: Noncontributory. ALLERGIES: AMLODIPINE. MEDICATIONS: List of her home medications were reviewed. A couple of small updates were made to inp atient list. REVIEW OF SYSTEMS: General, head, ears, eyes, nose, throat, cardiovascular, respiratory, GI, , mus culoskeletal, neurologic and skin is negative except as mentioned in the HPI. LABORATORY DATA: WBC 3.1, hemoglobin 10.4, platelets 132,000. Band count is 12% and there is 11% ne utrophils. Phosphorus 1.7, calcium 12.6. Creatinine 1.02 and roughly stable. Bicarbonate 12, anion gap up trending to 21. Potassium 5.9. Albumin 3.6. Urinalysis is significant for many white blood cells. E. coli is growing in both the urine, in one of the two blood cultures. Influenza A and B i s currently unremarkable. IMAGING: Chest x-ray demonstrates no acute cardiopulmonary abnormality. ASSESSMENT: 1. Severe sepsis. 2. Bacteremia secondary to Escherichia coli. 3. Urinary tract infection. 4. History of renal transplant with chronic immunosuppressed state. 5. Type 2 diabetes mellitus. DISCUSSION AND PLAN: We will replace the patient's phosphorous. She can be transitioned to the [facility] floor, provided that her acidosis clears a little bit into the afternoon. I will repeat some lab oratories at 2 o'clock. If these are trending into a favorable direction, she can be considered for transition to the floor. At that location, she will have no further requirements for inpatient [facility] opinion and I will sign off. If she remains in the IMCU, I will continue to sonu thomason
[2017-12-05] MEDS ORDERED: Ciprofloxacin 500 MG TAB PO SCH (12:30)
--- NOTE | 2017-12-05 13:48 | PRG ---
DATE OF SERVICE: 12/05/2017 RENAL MEDICINE SUBJECTIVE: Ms. Thompson is a 42-year-old female seen by Renal Service for her status post long l transplant. Currently on immunosuppressive, on tacrolimus and CellCept. Tacrolimus level still pe nding. She was initially admitted for fever and chills. She had urosepsis and blood culture was breanna d to have growing E. coli. She is currently on IV antibiotics. Clinically, she seems much improved. She has had episodes of elevated potassium in turn this was due to . An ABG was done which sh owed a normal potassium. This morning, she has no new complaints. She is feeling better. No chest pain, shortness of breath. OBJECTIVE: VITAL SIGNS: Blood pressure 142/60, heart rate 98, respiratory rate 18, temperature 99.4. GENERAL: Awake, alert, comfortable, not in distress. SKIN: Adequate turgor. HEENT: Pinkish conjunctivae. Anicteric sclerae. NECK: No neck mass, no carotid bruits, no JVD. CHEST: No deformities. LUNGS: Clear breath sounds. No wheezing, no crackles. HEART: Normal sinus rhythm. No murmurs, no gallops, no rubs. ABDOMEN: Globular, soft, nontender, no masses. Renal allograft is nontender. EXTREMITIES: No edema, no deformities. MEDICATIONS: Medications of 12/05/2017 was reviewed. LABORATORY DATA: Laboratories of 12/05/2017; white count , hemoglobin 11, hematocrit 33.3. Sod ium 135, potassium 4.1, chloride 108, carbon dioxide 18, BUN 13, creatinine 0.92, glucose 176, calciu m 8.5, AST 30, ALT 21, albumin 3.4. Urine and blood C&S showed E. coli. ASSESSMENT AND PLAN: 1. Urosepsis/E. coli bacteremia - currently on IV antibiotics. The patient is currently on IV merop enem. 2. Status post cadaveric renal transplant - 04/2017, normal kidney function. Awaiting tacrolimus le prem. Please note the white count is noted at 2.0. If this further worsens, consider decreasing myco phenolate/CellCept to 750 mg tab b.i.d. 3. Type 2 diabetes mellitus, stable. 4. Hypertension, stable. We will recheck another CMP and CBC tomorrow.
--- NOTE | 2017-12-05 13:51 | PRG ---
DATE OF SERVICE: 12/05/2017 SERVICE: Pulmonary Medicine. INTERVAL HISTORY: The patient is doing great from a respiratory standpoint. He denies any current c hest pain, nausea, vomiting, fevers or chills. She feels 100% better. She is about getting ou t of here. She understands how important it is; however, right data, so that we know exactly h ow long antibiotic course needs to be and which antibiotics are appropriate. PHYSICAL EXAMINATION: VITAL SIGNS: Afebrile currently. T-max overnight was 102.4, pulse 76, blood pressure 163/65, respir ations 18, saturation 96% on room air. GENERAL: The patient is awake, alert, no apparent distress. LUNGS: Decent air entry. There is no prolonged expiratory phase, wheezing, rhonchi, or crackles pre sent. HEART: Normal rate, regular. ABDOMEN: Soft, nontender, nondistended. Bowel sounds are positive. MUSCULOSKELETAL: No cyanosis or clubbing. She has no pitting in the bilateral lower extremities. NEUROLOGIC: Grossly nonfocal. LABORATORY DATA: WBC 2.0, hemoglobin 11.0, platelets 137,000 and rebounding. pH 7.48, pCO2 28, pO2 94. Basic metabolic profile is essentially unremarkable with a creatinine that stable at 0.92. Bica rbonate 18. Liver function studies are otherwise unremarkable. Albumin 3.4. Nitrites are positive with white blood cells are 21-50. The E. coli is growing in one out of two blood cultures and urine culture. It demonstrates sensitivities to Levaquin, and Cipro. Resistance profiles are the same sug gesting we are dealing with the same organism. IMAGING: Renal ultrasound does note any evidence of hydronephrosis. ASSESSMENT: 1. Severe sepsis. 2. Urinary tract infection secondary to Escherichia coli, sensitive to fluoroquinolones. 3. Bacteremia secondary to Escherichia coli with same resistance profile. 4. History of renal transplant with chronic immunosuppressed state. 5. Type 2 diabetes mellitus. DISCUSSION AND PLAN: We will switch the patient over to an oral fluoroquinolone. She will require a 2-week course of antibiotic. Now that she has broken her fever. I will repeat blood cultures in th e morning. If things are going well, she remains afebrile, she can be considered for transition to t he floor, provided that no additional diagnostic investigations are warranted. When she lands on the floor, Pulmonary Critical Care will sign off that she will have no further requirements per our opin ion.
[2017-12-05] MEDS: Ciprofloxacin 500 MG TAB PO SCH (21:34)
[2017-12-05] MEDS: Pravastatin Sodium 20 MG TAB PO SCH (21:34)
[2017-12-06] MEDS: Ciprofloxacin 500 MG TAB PO SCH (05:50)
[2017-12-06 07:40] VITALS: BP 166/82; TEMP 98
[2017-12-06 08:10] LABS: Tacrolimus 2.8 ng/mL (2.0-20.0)
[2017-12-06 08:21] LABS: Hemoglobin 11.7 g/dL (12.0-16.0); Mean Corpuscular HGB CONC 33.6 g/dL (32.0-36.0); Mean Corpuscular Hemoglobin 31.1 pg (27.0-31.0); Mean Corpuscular Volume 92.4 fL (78.0-98.0); Mean Platelet Volume 8.6 fL (7.4-10.4); Platelet Count 174 thou/uL (130-400); RBC Distribution Width 12.1 % (11.5-14.5); Red Blood Cell (RBC) Count 3.75 mill/uL (4.20-5.40); White Blood Cell (WBC) Count 2.6 thou/uL (4.8-10.8)
[2017-12-06 08:35] LABS: Anion Gap 14 mmol/L (10-20); BUN (Urea Nitrogen) 15 mg/dL (7.0-18.7); Calc. Creatinine Clearance 104 mL/min (70-130); Calcium 9.5 mg/dL (7.8-10.44); Carbon Dioxide 20 mmol/L (22-29); Chloride 107 mmol/L (98-107); Estimated GFR-MDRD 75; Glucose 177 mg/dL (70-105); Potassium 3.8 mmol/L (3.5-5.1); Sodium 137 mmol/L (136-145)
[2017-12-06 08:36] LABS: Anion Gap 15 mmol/L (10-20); BUN (Urea Nitrogen) 15 mg/dL (7.0-18.7); Calc. Creatinine Clearance 105 mL/min (70-130); Calcium 9.5 mg/dL (7.8-10.44); Carbon Dioxide 19 mmol/L (22-29); Chloride 107 mmol/L (98-107); Estimated GFR-MDRD 76; Glucose 177 mg/dL (70-105); Potassium 3.9 mmol/L (3.5-5.1); Sodium 137 mmol/L (136-145)
[2017-12-06 08:38] LABS: Band 3 % (5-11); Eosinophils 12 % (0-10); Lymphocytes 8 % (21-51); MDiff Complete? YES; Monocytes 11 % (0-10); Neutrophil 66 % (42-75)
[2017-12-06] MEDS: Aspirin 81 mg Enteric Coated Tablet PO SCH (08:42)
[2017-12-06] MEDS: predniSONE 5 MG TAB PO SCH (08:42)
[2017-12-06] MEDS: Sodium Bicarbonate Tab 325 MG TAB PO SCH (08:42)
[2017-12-06] MEDS: NIFEdipine XL 60 MG TAB PO SCH (08:42)
[2017-12-06] MEDS: Mycophenolate 250 MG CAP PO SCH (08:43)
[2017-12-06] MEDS: NPH, Human Insulin Isophane 300 UNIT/3 ML VIAL SC SCH (08:44)
[2017-12-06] MEDS: HumaLOG 300 UNITS/3 ML VIAL SC SCH (08:45)
[2017-12-06] MEDS: Metoprolol Tartrate 100 MG TAB PO SCH (10:13)
[2017-12-06] MEDS: Tacrolimus 1 MG CAP PO SCH (10:13)
--- NOTE | 2017-12-06 18:35 | DIS ---
DATE OF ADMISSION: 12/03/2017 DATE OF DISCHARGE: 12/06/2017 HISTORY OF PRESENT ILLNESS/HOSPITAL COURSE: Ms. Emy Thompson is a 42-year-old female with a history of hypertension, diabetes mellitus, and status post kidney transplant in 04/2017. She had previously been on hemodialysis for about 5-1/2 years. She came to the emergency room complaining of generalized weakness with nausea, vomiting, fever, and chills.Transplant doctor recommended treating the patient for sepsis in the hospital here and discharge to him to follow up with her on 12/07/2017. At the emergency room, she was found to have a lactic acid of 1.5. Urine was reviewed and she had a white count of 35-50 with small leukocyte esterase and positive urine nitrite. Cultures were taken and the patient was admitted to sepsis on account of her tachycardia, fever, and leukopenia with urinary source also suspected. She was started on broad spectrum antibiotics. Her blood cultures grew E. coli. She was initially placed on broad spectrum antibiotics, admitted to the ICU and eventually her regimen was narrowed down to ciprofloxacin. Other medical conditions treated while in hospital include diabetes, hypertension. She was discharged on a home medication and on a 2-week supply of ciprofloxacin. DISCHARGE MEDICATIONS: Ciprofloxacin 500 mg twice a day, sodium bicarbonate 60 mg 3 times a day, Tylenol with codeine 1 tablet every 6 hours as needed for pain , Humulin insulin 20 units subcutaneously before meals, NPH 10 units at bedtime , Humalog 15 units subcutaneously as directed with dinner, docusate 100 mg twice a day, sertraline 50 mg at bedtime, ergocalciferol 50,000 units weekly, pravastatin 20 mg at bedtime, metoprolol 100 mg twice a day, clonidine 0.1 mg 4 times a day, Procardia-XL 120 mg daily, famotidine 20 mg at bedtime, aspirin 81 mg daily, Valcyte 450 mg daily, Bactrim 1 at bedtime, prednisone 10 mg daily, tacrolimus 2 mg every morning, tacrolimus 3 mg every morning, CellCept 1000 mg twice a day. PHYSICAL EXAMINATION: She was examined on the day of discharge. VITAL SIGNS: Blood pressure 166/82, oxygen saturation 99% on room air, respiratory rate 18, pulse rate 92, and temperature 98 degrees Fahrenheit. GENERAL: Not in acute distress. She is walking on her own and seems comfortable. HEENT: Normocephalic, atraumatic. Not pale, anicteric. Moist mucous membranes. NECK: Supple, full range of movement. CARDIOVASCULAR: S1, S2, only with regular rate and rhythm. No murmurs, rubs or gallop. RESPIRATORY: Vesicular breath sounds bilaterally. No wheezes, rales or rhonchi. ABDOMEN: Soft, nontender, nondistended. Bowel sounds normoactive. EXTREMITIES: No edema. SKIN: Warm, dry, and well-perfused. No rashes or lesions. NEUROLOGIC: Alert and well oriented to time, place and persons. No focal deficits. PSYCHIATRIC: Normal mood and affect. LABORATORY DATA: WBC 2.6, hemoglobin 11.7, platelet count 174. Sodium 137, potassium 3.9, chloride 107, carbon dioxide 19, anion gap 15, BUN 15, creatinine 0.82, glucose 177, calcium 9.5. IMAGING: Renal ultrasound showed no focal renal lesion on hydronephrosis with no perinephric fluid collection surrounding the transplanted left kidney. Chest x-ray unremarkable. CONSULTATIONS: Infectious Disease, Nephrology, Pulmonology. CONDITION AT DISCHARGE: Stable and improved. DIET: Renal. ACTIVITIES: Resume as tolerated. CARE GOALS: To follow up with her primary care physician within 1 week of discharge. Also, has an appointment with her transplant physician tomorrow in [place]. Discharge time 65 minutes including chart review and documentation. MARY
== END 2017-12-06 12:03 | disposition home or self-care (01) | DRG 871 ==
LOC: ERS 20:38 → ERHOLD 12-03 01:10 → IMCU/EMU 12-03 10:09 → T4-A 12-05 13:05
PROVIDERS: ADMIT Hospitalist; ATTEND Hospitalist
DX: A41.51 Sepsis due to Escherichia coli [E. coli] (principal); N18.6 End stage renal disease; N39.0 Urinary tract infection, site not specified; Z94.0 Kidney transplant status; I12.0 Hypertensive chronic kidney disease with stage 5 chronic kidney disease or end stage renal disease; E87.1 Hypo-osmolality and hyponatremia; Z79.899 Other long term (current) drug therapy; E11.22 Type 2 diabetes mellitus with diabetic chronic kidney disease; E11.65 Type 2 diabetes mellitus with hyperglycemia; Z79.4 Long term (current) use of insulin; E78.00 Pure hypercholesterolemia, unspecified; E66.9 Obesity, unspecified; Z68.33 Body mass index [BMI] 33.0-33.9, adult; R65.20 Severe sepsis without septic shock
CPT/HCPCS: 36415; 36416; 71046; 76775; 80048; 80053; 80197; 81003; 81015; 82553; 82805; 83605; 83690; 83880; 84484; 85025; 87040; 87077; 87086; 87149; 87186; 87804; 93005; 96365; 96366; 96367; 96368; 96375; A4216; J0696; J1650; J1815; J1956; J2185; J2270; J2405; J2550; J3010; J3370; J7050; J7507; J7517; J8499

== ENCOUNTER 2018-01-29 15:24 | Emergency (ER) | payer MEDICARE, BC ==
[2018-01-29 16:56] LABS: Bilirubin Negative (Negative); Blood, Urine Negative (Negative); Clarity CLEAR (Clear); Glucose, Urine (Dipstick) Negative (Negative); Leukocyte Negative (Negative); Nitrite Negative (Negative); Protein, Urine (Dipstick) Negative (Neg-Trace); Urobilinogen 0.2 mg/dL (0.2-1.0)
[2018-01-29 18:29] LABS: #Eosinphils 0.3 thou/uL (0.0-0.7); #Lymphocytes 0.6 thou/uL (1.20-3.40); #Monocytes 0.2 thou/uL (0.11-0.59); #Neutrophils 5.3 thou/uL (1.40-6.50); %Basophils 0.6 % (0.0-1.0); %Eosinophils 4.5 % (0.0-10.0); %Lymphocytes 9.3 % (21.0-51.0); %Monocytes 3.4 % (0.0-10.0); %Neutrophils 82.2 % (42.0-75.0); Hemoglobin 13.6 g/dL (12.0-16.0); Mean Corpuscular Hemoglobin 31.8 pg (27.0-31.0); Mean Corpuscular Volume 93.4 fL (78.0-98.0); Mean Platelet Volume 8.6 fL (7.4-10.4); Platelet Count 233 thou/uL (130-400); RBC Distribution Width 12.6 % (11.5-14.5); Red Blood Cell (RBC) Count 4.29 mill/uL (4.20-5.40); White Blood Cell (WBC) Count 6.4 thou/uL (4.8-10.8)
[2018-01-29 18:50] LABS: ALT (SGPT) 28 U/L (8-55); AST (SGOT) 22 U/L (5-34); Albumin 4.6 g/dL (3.5-5.0); Alkaline Phosphatase 64 U/L (40-150); Anion Gap 12 mmol/L (10-20); BUN (Urea Nitrogen) 25 mg/dL (7.0-18.7); Bilirubin, Total 0.3 mg/dL (0.2-1.2); Calc. Creatinine Clearance 0 mL/min (70-130); Calcium 10.4 mg/dL (7.8-10.44); Carbon Dioxide 23 mmol/L (22-29); Chloride 108 mmol/L (98-107); Estimated GFR-MDRD 57; Globulin 2.8 g/dL (2.4-3.5); Glucose 70 mg/dL (70-105); Potassium 4.4 mmol/L (3.5-5.1); Protein, Total 7.4 g/dL (6.0-8.3); Sodium 139 mmol/L (136-145)
[2018-02-02 06:16] LABS: Tacrolimus 7.5 ng/mL (2.0-20.0)
== END 2018-01-29 20:25 | disposition home or self-care (01) ==
LOC: ERS 15:24
DX: R60.0 Localized edema (principal); E10.9 Type 1 diabetes mellitus without complications; E78.5 Hyperlipidemia, unspecified; I10 Essential (primary) hypertension; Z79.899 Other long term (current) drug therapy; Z79.82 Long term (current) use of aspirin
CPT/HCPCS: 36415; 36416; 80053; 80197; 81003; 83880; 85025; 87086; 99283

== ENCOUNTER 2018-06-17 10:54 | Outpatient (CLI) | payer MEDICARE, BC ==
--- NOTE | 2018-06-17 12:30 | RAD ---
FRONTAL AND LATERAL IMAGING OF CHEST: DATE: 06/17/2018. COMPARISON: 12/10/2017. History Cough. FINDINGS: No pneumothorax, pleural fluid, focal consolidation, or alveolar edema. Heart and mediastinal contou rs appear grossly unremarkable. IMPRESSION: No acute findings. POS: [facility]
== END 2018-06-17 10:55 | disposition home or self-care (01) ==
LOC: RAD-FRANK 10:54
PROVIDERS: ATTEND Nurse Practitioner Family
DX: R05 Cough (principal)
CPT/HCPCS: 71046

== ENCOUNTER 2018-06-22 20:32 | Emergency (ER) | payer MEDICARE, BC ==
[2018-06-22] MEDS ORDERED: Acetaminophen 500 MG TAB ONE (21:15)
[2018-06-22 22:05] LABS: #Lymphocytes 0.3 thou/uL (1.20-3.40); #Monocytes 0.1 thou/uL (0.11-0.59); #Neutrophils 2.4 thou/uL (1.40-6.50); %Basophils 0.4 % (0.0-1.0); %Eosinophils 0.4 % (0.0-10.0); %Lymphocytes 9.5 % (21.0-51.0); %Monocytes 2.9 % (0.0-10.0); %Neutrophils 86.9 % (42.0-75.0); Hemoglobin 12.1 g/dL (12.0-16.0); Mean Corpuscular HGB CONC 32.1 g/dL (32.0-36.0); Mean Corpuscular Volume 90.3 fL (78.0-98.0); Mean Platelet Volume 9.9 fL (7.4-10.4); Platelet Count 155 thou/uL (130-400); RBC Distribution Width 11.9 % (11.5-14.5); Red Blood Cell (RBC) Count 4.16 mill/uL (4.20-5.40); White Blood Cell (WBC) Count 2.7 thou/uL (4.8-10.8)
[2018-06-22 22:17] LABS: ALT (SGPT) 26 U/L (8-55); AST (SGOT) 32 U/L (5-34); Albumin 3.9 g/dL (3.5-5.0); Alkaline Phosphatase 67 U/L (40-150); Anion Gap 12 mmol/L (10-20); BUN (Urea Nitrogen) 12 mg/dL (7.0-18.7); Bilirubin, Total 0.3 mg/dL (0.2-1.2); Calc. Creatinine Clearance 0 mL/min (70-130); Carbon Dioxide 21 mmol/L (22-29); Chloride 105 mmol/L (98-107); Estimated GFR-MDRD 59; Globulin 2.8 g/dL (2.4-3.5); Glucose 144 mg/dL (70-105); Potassium 4.1 mmol/L (3.5-5.1); Protein, Total 6.7 g/dL (6.0-8.3); Sodium 134 mmol/L (136-145)
[2018-06-22 22:31] LABS: Bilirubin Negative (Negative); Blood, Urine Large (Negative); Clarity CLOUDY (Clear); Glucose, Urine (Dipstick) Negative (Negative); Leukocyte Negative (Negative); Nitrite Negative (Negative); Protein, Urine (Dipstick) 100 mg/dL (Neg-Trace); Specific Gravity, Urine 1.033 (1.002-1.036); Urobilinogen 0.2 mg/dL (0.2-1.0); pH, Urine 5.5 (5.0-9.0)
[2018-06-22 22:33] LABS: Bacteria/HPF Rare-Few HPF (None Seen); Hyaline Casts/LPF 0-3 HYALINE CAST LPF (0-3 Hyaline); Pathc Cast-AUWi Flag 0.43 (0-2.49); WBC/HPF 0-3 HPF (0-3)
[2018-06-22 22:35] LABS: Yeast-AUWi Flag 463.7 (0-25.0)
--- NOTE | 2018-06-22 22:47 | RAD ---
PORTABLE CHEST 06/22/18 PROVIDED CLINICAL HISTORY: Cough. FINDINGS: Comparison 06/17/18. The cardiac and mediastinal silhouette is within normal limits. Lungs appear clear. No pleural fluid or pneumothorax apparent. IMPRESSION: No evidence for an acute cardiopulmonary process. POS: [facility]
[2018-06-22 22:51] LABS: Yeast-All Forms None Seen HPF (None Seen)
== END 2018-06-23 00:06 | disposition home or self-care (01) ==
LOC: ERS 20:32
DX: J02.9 Acute pharyngitis, unspecified (principal); E10.9 Type 1 diabetes mellitus without complications; E78.5 Hyperlipidemia, unspecified; I10 Essential (primary) hypertension
CPT/HCPCS: 36415; 71045; 80053; 81003; 81015; 83605; 85025; 87040; 87804

== ENCOUNTER 2018-07-07 14:02 | Emergency (ER) | payer MEDICARE, BC | END 2018-07-07 17:23 | disposition home or self-care (01) | LOC: ERS 14:02 | DX: J20.9 Acute bronchitis, unspecified (principal); E10.9 Type 1 diabetes mellitus without complications; E78.5 Hyperlipidemia, unspecified; I10 Essential (primary) hypertension | CPT/HCPCS: 87081; 87430; 99283 ==

== ENCOUNTER 2018-07-13 15:23 | Outpatient (CLI) | payer MEDICARE, BC ==
--- NOTE | 2018-07-13 16:22 | RAD ---
TWO VIEW CHEST: History: Cough. FINDINGS: Lungs appear well aerated and clear. No infiltrate identified. Vascular markings normal. Heart and me diastinum unremarkable. IMPRESSION: No acute process identified. POS: [facility]
== END 2018-07-13 15:24 | disposition home or self-care (01) ==
LOC: RAD-FRANK 15:23
PROVIDERS: ATTEND Nurse Practitioner Family
DX: R05 Cough (principal)
CPT/HCPCS: 71046

== ENCOUNTER 2018-09-10 20:14 | Inpatient (IN) | payer BC, MEDICARE ==
--- NOTE | 2018-09-10 21:31 | RAD ---
FPortable chest: Indications cough COMPARISON: 07/13/2018 There is new infiltrate the right upper lobe. Also streaky infiltrate now seen in the left midlung fi eld. Heart and mediastinum unremarkable IMPRESSION: Evidence of bilateral infiltrates which have occurred since 07/13/2018
[2018-09-10 22:35] LABS: Hemoglobin 9.1 g/dL (12.0-16.0); Mean Corpuscular HGB CONC 31.5 g/dL (32.0-36.0); Mean Corpuscular Hemoglobin 26.8 pg (27.0-31.0); Platelet Count 242 thou/uL (130-400); RBC Distribution Width 13.8 % (11.5-14.5); Red Blood Cell (RBC) Count 3.41 mill/uL (4.20-5.40); White Blood Cell (WBC) Count 2.4 thou/uL (4.8-10.8)
[2018-09-10 22:54] LABS: ALT (SGPT) 14 U/L (8-55); AST (SGOT) 19 U/L (5-34); Albumin 3.9 g/dL (3.5-5.0); Alkaline Phosphatase 75 U/L (40-150); Anion Gap 16 mmol/L (10-20); BUN (Urea Nitrogen) 13 mg/dL (7.0-18.7); Bilirubin, Total 0.8 mg/dL (0.2-1.2); Calc. Creatinine Clearance 0 mL/min (70-130); Calcium 9.8 mg/dL (7.8-10.44); Carbon Dioxide 22 mmol/L (22-29); Chloride 104 mmol/L (98-107); Estimated GFR-MDRD 61; Globulin 2.9 g/dL (2.4-3.5); Glucose 180 mg/dL (70-105); Protein, Total 6.8 g/dL (6.0-8.3); Sodium 138 mmol/L (136-145)
[2018-09-10 23:08] LABS: Band 6 % (5-11); Eosinophils 4 % (0-10); Lymphocytes 21 % (21-51); MDiff Complete? YES; Monocytes 3 % (0-10); Neutrophil 66 % (42-75)
[2018-09-10] MEDS ORDERED: Acetaminophen 325 MG TAB ONE ×2 (23:20→23:24)
[2018-09-10] MEDS ORDERED: Cefepime 2 GM VIAL ONE (23:21)
[2018-09-11] LABS: Bilirubin Small (Negative); Blood, Urine Negative (Negative); Clarity CLOUDY (Clear); Glucose, Urine (Dipstick) 100 mg/dL (Negative); Leukocyte Negative (Negative); Nitrite Negative (Negative); Protein, Urine (Dipstick) 100 mg/dL (Neg-Trace); Specific Gravity, Urine 1.031 (1.002-1.036)
[2018-09-11 00:03] LABS: Bacteria/HPF 1+ HPF (None Seen); Hyaline Casts/LPF 7-10 HYALINE CAST LPF (0-3 Hyaline); Pathc Cast-AUWi Flag 1.49 (0-2.49); RBC/HPF 0-3 HPF (0-3); WBC/HPF 21-50 HPF (0-3)
[2018-09-11] MEDS ORDERED: Ondansetron PF 4 MG/2 ML Vial ONE (00:28)
[2018-09-11] MEDS ORDERED: Oseltamivir 75 MG CAP PO SCH ×2 (01:15→19:45)
[2018-09-11] MEDS ORDERED: Acetaminophen 325 MG TAB PO PRN (05:10)
[2018-09-11] MEDS ORDERED: Ondansetron PF 4 MG/2 ML Vial IVP PRN (05:10)
[2018-09-11] MEDS ORDERED: Ondansetron ODT 4 MG TAB SL PRN (05:10)
[2018-09-11] MEDS ORDERED: Dextrose 50% Abboject 50 ML SYRINGE SLOW IVP PRN (05:45)
[2018-09-11] MEDS ORDERED: Dextrose 5% in Water 1,000 ML IV PRN (05:45)
[2018-09-11 06:05] VITALS: BMI 33.3
[2018-09-11] MEDS: Sodium Chloride 0.9% 1,000 ML IV SCH ×2 (06:51→08:38)
[2018-09-11] MEDS ORDERED: Sodium Chloride 0.9% 1,000 ML IV SCH (07:45)
[2018-09-11] MEDS: Cefepime 2 GM in Sodium Chloride 0.9% 100 ML IVPB SCH ×3 (08:25→23:31)
[2018-09-11] MEDS: Enoxaparin Sodium 40 MG/0.4 ML SYRINGE SC SCH (08:25)
[2018-09-11 08:55] LABS: Anion Gap 19 mmol/L (10-20); BUN (Urea Nitrogen) 11 mg/dL (7.0-18.7); Calc. Creatinine Clearance 96 mL/min (70-130); Carbon Dioxide 16 mmol/L (22-29); Chloride 108 mmol/L (98-107); Estimated GFR-MDRD 69; Glucose 264 mg/dL (70-105); Potassium 4.6 mmol/L (3.5-5.1); Sodium 138 mmol/L (136-145)
[2018-09-11] MEDS ORDERED: Docusate 100 MG CAP PO PRN (10:42)
--- NOTE | 2018-09-11 10:45 | PDOC.PN ---
- Subjective Encounter Start Date: 09/11/18 Encounter Start Time: 10:44 Ms. Thompson was seen today in follow-up of pneumonia. She says she is feeling a little better now than she did early this morning. She has less nausea and vomiting, and is breathing a little better. - Objective Resuscitation Status - Order Detail: 09/11/18 05:50 Resuscitation Status Routine Resuscitation Status: FULL: Full Resuscitation MAR Reviewed: Yes Vital Signs & Weight: Vital Signs (12 hours) Temp Pulse Resp BP Pulse Ox 09/11/18 09:50 100.4 F H 102 H 20 124/76 93 L 09/11/18 08:59 102.9 F H 121 H 20 154/64 H 90 L 09/11/18 08:25 90 L 09/11/18 07:36 100.8 F H 117 H 20 172/78 H 81 L 09/11/18 04:45 99.1 F 116 H 18 164/85 H 92 L Weight Weight 164 lb 15.903 oz Result Diagrams: 09/10/18 22:14 09/11/18 08:13 Additional Labs: Accuchecks 09/11/18 09/11/18 10:16 05:21 POC Glucose 268 H 263 H Phys Exam - Physical Examination + rales in the mid lung field of both lungs, mild expiratory wheeze Cardiovascular: RRR, no significant murmur, no rub Gastrointestinal: soft, non-tender, no distention, positive bowel sounds Musculoskeletal: no edema, edema present Dx/Plan (1) Pneumonia Code(s): J18.9 - PNEUMONIA, UNSPECIFIED ORGANISM Status: Acute (2) Diabetes Code(s): E11.9 - TYPE 2 DIABETES MELLITUS WITHOUT COMPLICATIONS Status: Chronic Qualifiers: Diabetes mellitus type: type 2 Diabetes mellitus wet and dry sugar bin operator insulin use: with correction use Diabetes mellitus complication status: with kidney complications Diabetes mellitus complication detail: with chronic kidney disease Chronic kidney disease stage: stage 1 Qualified Code(s): E11.22 - Type 2 diabetes mellitus with diabetic chronic kidney disease; N18.1 - Chronic kidney disease, stage 1; N18.1 - Chronic kidney disease, stage 1; Z79.4 - half-way (current) use of insulin; Z79.4 - squirrel man (current) use of insulin; Z79.4 - squirrel man (current) use of insulin; Z79.4 - squirrel man (current) use of insulin Comment: Fair control. Monitor accuchecks and adjust regimen as necessary. (3) ESRD (end stage renal disease) Code(s): N18.6 - END STAGE RENAL DISEASE Status: Chronic (4) Hypertension Code(s): I10 - ESSENTIAL (PRIMARY) HYPERTENSION Status: Chronic Qualifiers: Hypertension type: secondary to other renal disorders Qualified Code(s): I15.1 - Hypertension secondary to other renal disorders; N28.89 - Other specified disorders of kidney and ureter; N28.89 - Other specified disorders of kidney and ureter Comment: Fair control. Restart home medications as tolerated. (5) S/P kidney transplant Code(s): Z94.0 - KIDNEY TRANSPLANT STATUS Status: Chronic Comment: Continue home medications. (6) Sepsis Code(s): A41.9 - SEPSIS, UNSPECIFIED ORGANISM Status: Acute - Plan * Pneumonia- community acquired with sepsis- continue Maxipime and Vancomycin * Sepsis- continue the current antibiotics * DM- blood glucose is slightly elevated- will re-start her home dose of insulin and continue SSI. * HTN- blood pressure is controlled * ESRD- she is s/p transplant- will consult Nephrology due to her transplant status
[2018-09-11] MEDS: Insulin Regular 300 UNITS/3 ML VIAL SC PRN ×2 (11:55→16:53)
[2018-09-11] MEDS: cloNIDine 0.1 MG TAB PO SCH ×3 (12:47→20:40)
[2018-09-11] MEDS: Acetaminophen/Codeine 30-300mg Tablet PO PRN (15:18)
[2018-09-11] MEDS: Simvastatin 5 MG TAB PO SCH (20:37)
[2018-09-11] MEDS: Tacrolimus 0.5 MG CAP PO SCH (20:38)
[2018-09-11] MEDS: Tacrolimus 1 MG CAP PO SCH (20:38)
[2018-09-11] MEDS: Metoprolol Tartrate 100 MG TAB PO SCH (20:40)
[2018-09-11] MEDS: Acetaminophen 325 MG TAB PO PRN (20:41)
[2018-09-11] MEDS: Mycophenolate 250 MG CAP PO SCH (20:42)
[2018-09-11] MEDS ORDERED: Mycophenolate 250 MG CAP PO SCH (21:00)
[2018-09-12] MEDS: Vancomycin HCl 1.25 GM in Sodium Chloride 0.9% 250 ML 250 ML IVPB SCH (02:34)
[2018-09-12] MEDS: Acetaminophen/Codeine 30-300mg Tablet PO PRN (05:21)
[2018-09-12] MEDS ORDERED: Ondansetron PF 4 MG/2 ML Vial IVP PRN (05:35)
[2018-09-12] MEDS ORDERED: Ondansetron ODT 4 MG TAB SL PRN (05:35)
[2018-09-12 08:47] LABS: Anion Gap 14 mmol/L (10-20); BUN (Urea Nitrogen) 10 mg/dL (7.0-18.7); Calc. Creatinine Clearance 106 mL/min (70-130); Calcium 8.6 mg/dL (7.8-10.44); Carbon Dioxide 20 mmol/L (22-29); Chloride 105 mmol/L (98-107); Estimated GFR-MDRD 77; Glucose 179 mg/dL (70-105); Potassium 3.7 mmol/L (3.5-5.1); Sodium 135 mmol/L (136-145)
[2018-09-12 08:56] LABS: Hemoglobin 8.7 g/dL (12.0-16.0); Mean Corpuscular HGB CONC 31.3 g/dL (32.0-36.0); Mean Corpuscular Hemoglobin 27.1 pg (27.0-31.0); Mean Corpuscular Volume 86.4 fL (78.0-98.0); Mean Platelet Volume 10.1 fL (7.4-10.4); Platelet Count 158 thou/uL (130-400); RBC Distribution Width 13.9 % (11.5-14.5); Red Blood Cell (RBC) Count 3.22 mill/uL (4.20-5.40); White Blood Cell (WBC) Count 1.1 thou/uL (4.8-10.8)
[2018-09-12 08:57] LABS: Band 18 % (5-11); Eosinophils 5 % (0-10); Lymphocytes 19 % (21-51); MDiff Complete? YES; Metamyelocyte 1 % (0-0); Monocytes 1 % (0-10); Neutrophil 56 % (42-75)
[2018-09-12] MEDS: predniSONE 5 MG TAB PO SCH (09:18)
[2018-09-12] MEDS: Polyethylene Glycol 3350 17 GM Packet PO SCH (09:18)
[2018-09-12] MEDS: Oseltamivir 75 MG CAP PO SCH (09:18)
[2018-09-12] MEDS: Cefepime 2 GM in Sodium Chloride 0.9% 100 ML IVPB SCH ×3 (09:18→23:48)
[2018-09-12] MEDS: Enoxaparin Sodium 40 MG/0.4 ML SYRINGE SC SCH (09:18)
[2018-09-12] MEDS: NIFEdipine XL 60 MG TAB PO SCH (09:18)
[2018-09-12] MEDS: Mycophenolate 250 MG CAP PO SCH ×2 (09:19→20:57)
[2018-09-12] MEDS: cloNIDine 0.1 MG TAB PO SCH ×5 (09:19→21:12)
[2018-09-12] MEDS: Tacrolimus 1 MG CAP PO SCH ×2 (09:19→20:58)
[2018-09-12] MEDS: Aspirin 81 mg Enteric Coated Tablet PO SCH (09:19)
[2018-09-12] MEDS: Insulin Regular 300 UNITS/3 ML VIAL SC PRN ×3 (11:58→21:04)
[2018-09-12] MEDS: Acetaminophen 325 MG TAB PO PRN ×2 (13:47→21:09)
[2018-09-12] MEDS: Metoprolol Tartrate 100 MG TAB PO SCH ×2 (14:07→20:58)
--- NOTE | 2018-09-12 14:31 | PDOC.PN ---
- Subjective Encounter Start Date: 09/12/18 Encounter Start Time: 14:29 Ms. Thompson was seen today in follow-up of Pneumonia and sepsis. She says she is a little stronger today - Objective Resuscitation Status - Order Detail: 09/11/18 05:50 Resuscitation Status Routine Resuscitation Status: FULL: Full Resuscitation MAR Reviewed: Yes Vital Signs & Weight: Vital Signs (12 hours) Temp Pulse Resp BP BP BP Pulse Ox 09/12/18 13:47 100.4 F H 118 H 20 135/77 99 09/12/18 12:18 99.5 F 112 H 20 142/61 H 97 09/12/18 09:18 98 119/62 09/12/18 08:04 98.8 F 98 20 119/62 93 L 09/12/18 08:00 93 L 09/12/18 03:49 98.6 F 105 H 20 148/60 H 94 L Weight Weight 164 lb 15.903 oz I&O: 09/11/18 09/12/18 09/13/18 06:59 06:59 06:59 Intake Total 1454 Balance 1454 Result Diagrams: 09/12/18 08:15 09/12/18 08:15 Additional Labs: Accuchecks 09/12/18 09/12/18 09/11/18 11:48 05:29 20:14 POC Glucose 220 H 169 H 180 H 09/11/18 16:53 POC Glucose 253 H Phys Exam - Physical Examination HEENT: PERRLA + bilateral rhonchi, rales at the bases Cardiovascular: RRR, no significant murmur, no rub tachycardic Gastrointestinal: soft, non-tender, no distention, positive bowel sounds Musculoskeletal: no edema Neurological: non-focal, normal sensation Dx/Plan (1) Pneumonia Code(s): J18.9 - PNEUMONIA, UNSPECIFIED ORGANISM Status: Acute (2) Diabetes Code(s): E11.9 - TYPE 2 DIABETES MELLITUS WITHOUT COMPLICATIONS Status: Chronic Qualifiers: Diabetes mellitus type: type 2 Diabetes mellitus nursing home insulin use: with nursing home use Diabetes mellitus complication status: with kidney complications Diabetes mellitus complication detail: with chronic kidney disease Chronic kidney disease stage: stage 1 Qualified Code(s): E11.22 - Type 2 diabetes mellitus with diabetic chronic kidney disease; N18.1 - Chronic kidney disease, stage 1; N18.1 - Chronic kidney disease, stage 1; Z79.4 - dedicated intermodal truck driver (current) use of insulin; Z79.4 - dedicated intermodal truck driver (current) use of insulin; Z79.4 - dedicated intermodal truck driver (current) use of insulin; Z79.4 - custodial (current) use of insulin Comment: Fair control. Monitor accuchecks and adjust regimen as necessary. (3) ESRD (end stage renal disease) Code(s): N18.6 - END STAGE RENAL DISEASE Status: Chronic (4) Hypertension Code(s): I10 - ESSENTIAL (PRIMARY) HYPERTENSION Status: Chronic Qualifiers: Hypertension type: secondary to other renal disorders Qualified Code(s): I15.1 - Hypertension secondary to other renal disorders; N28.89 - Other specified disorders of kidney and ureter; N28.89 - Other specified disorders of kidney and ureter Comment: Fair control. Restart home medications as tolerated. (5) S/P kidney transplant Code(s): Z94.0 - KIDNEY TRANSPLANT STATUS Status: Chronic Comment: Continue home medications. (6) Sepsis Code(s): A41.9 - SEPSIS, UNSPECIFIED ORGANISM Status: Acute (7) Influenza A (H1N1) Code(s): J10.1 - FLU DUE TO OTH IDENT INFLUENZA VIRUS W OTH RESP MANIFEST Status: Acute - Plan * Pneumonia with sepsis- likely due to Influenza- Tamiflu was added last night * Will continue Empiric Antibiotics due to Immuncompromised state * Neutropenia- likely from the viral infection * ESRD- s/p renal transplant- Nephrology input appreciated * HTN- re-start her home medications * DM- blood glucose is stable
--- NOTE | 2018-09-12 18:12 | CON ---
DATE OF CONSULTATION: HISTORY OF PRESENT ILLNESS: Ms. Thompson is a 43-year-old female with known history of renal disease, status post cadaveric renal transplant and admitted for fever and chills. She was complaining of body aches for the last day or so. She is being empirically treated with IV antibiotics. I have reviewed her immunosuppressive regimen, and due to the leukopenia, fever and chills and possible sepsis, I have decreased her CellCept from 1000 mg p.o. b.i.d. to 500 mg p.o. b.i.d. Tacrolimus immunosuppressive and prednisone will be continued for the moment. This afternoon, she is feeling a little better. She is less achy. Temperature is slightly improved. REVIEW OF SYSTEMS: No chest pain. Positive for body ache. Positive for fever and chills. No nausea. No vomiting. No gross hematuria. No dysuria. No urinary frequency. No productive cough. Appetite and energy level are decreased. No hematochezia. No melena. No abdominal pain. Occasional joint pains. MEDICATIONS: 1. Ecotrin 81 mg p.o. daily. 2. Cefepime 2 g IV q.8. 3. Lovenox 40 mg subcu daily. 4. Humulin R sliding scale. 5. Lopressor 100 mg p.o. b.i.d. 6. Mycophenolate/CellCept 500 mg p.o. b.i.d. 7. Nifedipine 120 mg daily. 8. Tamiflu 75 mg p.o. daily. 9. Prednisone 10 mg daily. 10. Tacrolimus 0.5 mg q.p.m., 2 mg b.i.d. status post vancomycin. PAST MEDICAL HISTORY: Status post cadaveric renal transplant, status post ESRD from diabetic nephropathy; type 1 diabetes mellitus; hypertension; depression; hyperlipidemia; status post ESRD from diabetic nephropathy. PAST SURGICAL HISTORY: Status post cadaveric renal transplant, status post eye surgery, status post bilateral tubal ligation, status post cuffed dialysis catheter placement, status post AV fistula placement. FAMILY HISTORY: Positive family history of ESRD. ALLERGIES: NONE. TRAUMA: None. IMMUNIZATION: Up-to-date. HOSPITALIZATIONS: Please see past medical history. SOCIAL HISTORY: The patient lives in [place]. She lives with her . She is , 2 children. She is a retired grocery employee. Education, high school. Used to smoke. Currently, no smoking. Alcohol, rarely. No drug abuse, status post blood transfusion. PHYSICAL EXAMINATION: VITAL SIGNS: Blood pressure is noted at 135/77, temperature 100.4, heart rate 118, respiratory rate 20, and pulse ox 99%. GENERAL: Awake, alert, comfortable, not in distress. SKIN: Adequate turgor. HEENT: She has a pinkish conjunctivae. Anicteric sclerae. NECK: No neck mass. No carotid bruits. No JVD. CHEST: No deformities. LUNGS: Clear breath sounds. HEART: Normal sinus rhythm. No murmur. No gallops. No rubs. ABDOMEN: Globular, soft, nontender. No masses. EXTREMITIES: No edema. No deformities. NEUROLOGIC: Awake, alert, oriented to 3 spheres. Moving all extremities. No tremors. No asterixis. No ataxia. LABORATORY DATA: Laboratories of September 12, 2018; white count is 1.1, hemoglobin 8.7, hematocrit 27.9. Sodium 135, potassium is 3.7, chloride is 105, carbon dioxide 20, BUN 10, creatinine 0.81, calcium is 8.6. On September 10, 2018, AST is 19, ALT is 14. Blood culture, no growth to date. Nasal swab for influenza A and B negative. Chest x-ray of September 10, 2018 showed new infiltrate in the right upper lobe, also streaky infiltrate now seen in the left mid lung field. No evidence of CHF. ASSESSMENT AND PLAN: 1. Status post cadaveric renal transplant. Stable renal function. Creatinine is noted to be at 0.81. This is within baseline 4 and is normal. We will be continuing her prednisone and tacrolimus. However, due to the leukopenia, her CellCept yesterday was decreased from 1000 mg b.i.d. to 500 mg p.o. b.i.d. If no improvement with the leukopenia by tomorrow, we may need to hold off the CellCept temporarily. Currently, the white count is 1.1. 2. Her neutrophil is noted at 56%. 3. For the moment, agree with current management. 4. Pneumonia-on empiric IV antibiotics. Blood culture shows no growth to date. 5. Overall agree with current management. Recheck basic metabolic, CBC in a.m. Job ID: [id number]
[2018-09-12] MEDS: Simvastatin 5 MG TAB PO SCH (20:57)
[2018-09-12] MEDS: Tacrolimus 0.5 MG CAP PO SCH (20:59)
--- NOTE | 2018-09-13 00:50 | HP ---
PRIMARY CARE PHYSICIAN: Dr. Shazia Templeton CODE STATUS: She is full code. TIME OF EVALUATION: 6:00 a.m. CHIEF COMPLAINT: Fever. HISTORY OF PRESENT ILLNESS: This is a 43-year-old female patient with past medical history of end-stage renal disease, status post renal transplant, hypertension, high cholesterol, hyperlipidemia, diabetes type 1, came to the hospital after having fever, flu-like symptoms. The patient also have associated chills and body aches and cough, nonproductive. No clear triggers. No alleviating factors. The patient presented to the ER since she has a history of kidney transplant. On x-ray, she was found to have bilateral pneumonia. The patient's kidney transplant doctor was called and they are okay with us given the patient relates there is change in kidney function. They want the patient to be transferred if that is the case. Symptoms are moderate, has been present for the past few days, worsening yesterday. REVIEW OF SYSTEMS: CONSTITUTIONAL: The patient has fever, chills, and generalized weakness. RESPIRATORY: Cough with scant sputum production and shortness of breath. CARDIOVASCULAR: No chest pain or palpitation. GASTROINTESTINAL: No nausea. No vomiting, diarrhea, or abdominal pain. CENTRAL NERVOUS SYSTEM: No dizziness, headache, or feeling lightheaded. GENITOURINARY: No burning on urination. EXTREMITIES: No leg swelling. All other systems were reviewed and negative except for the findings mentioned above. PAST MEDICAL HISTORY: As mentioned in the HPI. PAST SURGICAL HISTORY: Left cataract, left arm dialysis shunt. PSYCHIATRIC HISTORY: No previous psych history. SOCIAL HISTORY: The patient drinks socially rarely. No drug use. No smoking history. Lives in home. Lives with his spouse. FAMILY HISTORY: Reviewed and noncontributory for current presentation. KNOWN ALLERGIES: Amlodipine, NSAIDs, pseudoephedrine. REPORTED MEDICATIONS: Please see medication reconciliation for details. PHYSICAL EXAMINATION: VITAL SIGNS: On presentation, blood pressure 162/65, heart rate 89, respiratory rate was 20, temperature 100.8, pain was 0, and oxygen saturation 99. Later on, the patient has become hypoxic with a saturation in the 90s, needing nasal cannula to keep saturation above 90. GENERAL APPEARANCE: The patient is alert and oriented, not in acute distress. HEENT: Eyes, normal conjunctivae. Moist oral mucosa. Anicteric. NECK: No JVD. RESPIRATORY: Bilateral air entry. No rales. No wheezing. Symmetric expansion. CARDIOVASCULAR: Normal rate, regular rhythm. No murmurs. No gallop. No edema. ABDOMEN: Soft. Normal bowel sounds. MUSCULOSKELETAL: Baseline range of motion and strength. No tenderness. SKIN: Warm, intact. No pallor. No rash. No redness. PULSES: Peripheral pulses are present. Capillary refill seems to be intact. NEURO: No evidence of any new focal weakness. Baseline speech. Cranial nerves seems to be intact. PSYCH: The patient is in good mood. No anxiety. Optimal judgment. IMAGING DATA: Chest x-ray was reviewed. The patient has areas of bilateral infiltrates. LABORATORY DATA: Reviewed. The patient has white count of 2.4, hemoglobin 9.1, MCV 85, and platelet count 242. Chemistries; sodium 138, potassium 4.0, chloride 104, carbon dioxide 22, anion gap 16, BUN 13, creatinine 1.00, GFR 61, glucose 180, lactic acid 1.1, calcium 9.8, and total bilirubin 0.8. LFTs were negative. Procalcitonin 0.10. Urine was done and the patient has white count 21 to 50. ASSESSMENT AND PLAN: The patient is placed in the hospital with following medical problems: 1. Sepsis. The patient has fever. The patient has tachycardia, possible source is pneumonia, urinary tract infection. The patient has been started on broad-spectrum antibiotics. Reconcile home treatment. Sensitivity. Pharmacy to dose on vancomycin. 2. Immunosuppression. The patient is immunosuppressed and leukopenic secondary to immunosuppressive therapy for kidney transplant. This places the patient at high risk of complication from sepsis, we will monitor. 3. Bilateral pneumonia. As seen on chest x-ray, the patient is immunosuppressed and has been started on broad-spectrum antibiotics. Treatment as above. 4. Uncontrolled hypertension. The patient presented with high blood pressure. We will reconcile home medications. We will not treat aggressively since the patient has sepsis and high risk for septic shock and hypotension. 5. Urinary tract infection. The patient has a positive urine. As stated, she is immunosuppressed . The patient is already on antibiotics. We will follow cultures and adjust as per sensitivity. 6. Deep venous thrombosis prophylaxis. 7. Pancytopenia secondary to immunosuppressive therapy. Job ID: [id number]
[2018-09-13 03:19] LABS: #Eosinphils 0.1 thou/uL (0.0-0.7); #Lymphocytes 0.4 thou/uL (1.20-3.40); #Monocytes 0.1 thou/uL (0.11-0.59); #Neutrophils 0.6 thou/uL (1.40-6.50); %Basophils 0.8 % (0.0-1.0); %Eosinophils 5.5 % (0.0-10.0); %Lymphocytes 37.5 % (21.0-51.0); %Monocytes 4.1 % (0.0-10.0); %Neutrophils 52.1 % (42.0-75.0); Hemoglobin 8.8 g/dL (12.0-16.0); Mean Corpuscular HGB CONC 31.1 g/dL (32.0-36.0); Mean Corpuscular Hemoglobin 26.6 pg (27.0-31.0); Mean Corpuscular Volume 85.6 fL (78.0-98.0); Mean Platelet Volume 10.2 fL (7.4-10.4); Platelet Count 177 thou/uL (130-400); RBC Distribution Width 13.6 % (11.5-14.5); Red Blood Cell (RBC) Count 3.32 mill/uL (4.20-5.40); White Blood Cell (WBC) Count 1.1 thou/uL (4.8-10.8)
[2018-09-13 03:35] LABS: Vancomycin, Trough 7.1 ug/mL
[2018-09-13 03:38] LABS: Anion Gap 12 mmol/L (10-20); BUN (Urea Nitrogen) 16 mg/dL (7.0-18.7); Calc. Creatinine Clearance 90 mL/min (70-130); Calcium 8.9 mg/dL (7.8-10.44); Carbon Dioxide 22 mmol/L (22-29); Chloride 105 mmol/L (98-107); Estimated GFR-MDRD 64; Glucose 273 mg/dL (70-105); Potassium 4.1 mmol/L (3.5-5.1); Sodium 135 mmol/L (136-145)
[2018-09-13] MEDS: Vancomycin HCl 1 GM in Premix Bag 1 BAG IVPB SCH ×2 (04:34→16:21)
[2018-09-13] MEDS: Vancomycin HCl 1.25 GM in Sodium Chloride 0.9% 250 ML 250 ML IVPB SCH (04:40)
[2018-09-13] MEDS: Insulin Regular 300 UNITS/3 ML VIAL SC PRN ×4 (05:47→20:24)
[2018-09-13] MEDS: cloNIDine 0.1 MG TAB PO SCH ×3 (08:27→16:24)
[2018-09-13] MEDS ORDERED: Mycophenolate 250 MG CAP PO SCH (08:35)
[2018-09-13] MEDS: Cefepime 2 GM in Sodium Chloride 0.9% 100 ML IVPB SCH ×2 (08:37→15:30)
[2018-09-13] MEDS: Polyethylene Glycol 3350 17 GM Packet PO SCH (08:37)
[2018-09-13] MEDS: Tacrolimus 1 MG CAP PO SCH ×2 (08:38→20:23)
[2018-09-13] MEDS: predniSONE 5 MG TAB PO SCH (08:38)
[2018-09-13] MEDS: Aspirin 81 mg Enteric Coated Tablet PO SCH (08:39)
[2018-09-13] MEDS: Metoprolol Tartrate 100 MG TAB PO SCH ×2 (08:39→20:23)
[2018-09-13] MEDS: Enoxaparin Sodium 40 MG/0.4 ML SYRINGE SC SCH (08:39)
[2018-09-13] MEDS: Oseltamivir 75 MG CAP PO SCH (08:39)
[2018-09-13] MEDS: Mycophenolate 250 MG CAP PO SCH ×2 (08:56→20:30)
[2018-09-13] MEDS: Acetaminophen 325 MG TAB PO PRN ×2 (08:58→20:33)
--- NOTE | 2018-09-13 09:53 | PRG ---
DATE OF SERVICE: 09/13/2018 SUBJECTIVE: Ms. Thompson is a 43-year-old female, who was admitted for pneumonia. She is currently on IV antibiotics and empirically has been treated for influenza. In addition, the patient's renal function remained stable. We are following her up for her status post cadaveric renal transplant. Unfortunately, she is noted to be leukopenic. We have been adjusting her CellCept. Today, I have decided to decrease it to 250 mg p.o. b.i.d. No other complaints. She is feeling better. OBJECTIVE: VITAL SIGNS: Blood pressure 102/49, heart rate 91, respiratory rate 18, temperature 99.9, and pulse ox 96%. GENERAL: Noted to be awake, alert, comfortable, not in distress. SKIN: Adequate turgor. HEENT: Pinkish conjunctivae. Anicteric sclerae. No neck mass. No carotid bruits. No JVD. CHEST: No deformities. LUNGS: Clear breath sounds. HEART: Normal sinus rhythm. No murmur. No gallops. No rubs. ABDOMEN: Globular, soft, nontender. No masses. EXTREMITIES: No edema. No deformities. MEDICATIONS: Medications of September 13, 2018, reviewed. LABORATORY DATA: Laboratories of September 13, 2018, white count 1.1, hemoglobin is 8.8, hematocrit 28.4. Sodium 135, potassium 4.1, chloride 105, carbon dioxide 22, BUN 16, creatinine 0.95, glucose 289, calcium 8.9. Tacrolimus level is pending. ASSESSMENT AND PLAN: 1. Status post cadaveric renal transplant, stable. Continue current tacrolimus dosing. Due to the leukopenia, we have decreased the CellCept to 250 mg p.o. b.i.d. today. Please note she came in at 1000 mg p.o. b.i.d. Depending on what the white count again will be tomorrow, we will decide whether to place it on hold or leave the current low-dose CellCept. 2. Pneumonia, on empiric IV antibiotics. She is also being empirically treated also for influenza. Overall, agree with current management. Recheck basic metabolic panel and CBC in a.m. Job ID: [id number]
[2018-09-13] MEDS ORDERED: Insulin Glargine 10 UNITS in Pre-Filled Syringe 1 EACH SC SCH (10:00)
[2018-09-13] MEDS: NIFEdipine XL 60 MG TAB PO SCH (12:25)
--- NOTE | 2018-09-13 13:31 | PDOC.PN ---
- Subjective Encounter Start Date: 09/13/18 Encounter Start Time: 13:28 Ms. Thompson was seen today in follow-up of Influenza pneumonia. She is feeling better. She walked a little in her room without much difficulty. - Objective Resuscitation Status - Order Detail: 09/11/18 05:50 Resuscitation Status Routine Resuscitation Status: FULL: Full Resuscitation MAR Reviewed: Yes Vital Signs & Weight: Vital Signs (12 hours) Temp Pulse Resp BP BP Pulse Ox 09/13/18 12:26 110/68 09/13/18 12:25 79 110/68 09/13/18 12:10 98.2 F 77 18 110/68 09/13/18 08:27 102/49 L 96 09/13/18 08:15 99.9 F H 91 18 102/49 L 96 09/13/18 04:00 99.8 F H 91 18 137/59 L 94 L Weight Weight 164 lb 15.903 oz I&O: 09/12/18 09/13/18 09/14/18 06:59 06:59 06:59 Intake Total 1454 800 Balance 1454 800 Result Diagrams: 09/13/18 03:09 09/13/18 03:09 Additional Labs: Accuchecks 09/13/18 09/13/18 09/12/18 11:35 05:12 20:40 POC Glucose 421 H 289 H 379 H 09/12/18 17:08 POC Glucose 320 H Phys Exam - Physical Examination HEENT: PERRLA + rhonchi bilaterally, no rales, + occasional wheeze Cardiovascular: RRR, no significant murmur, no rub Gastrointestinal: soft, non-tender, no distention, positive bowel sounds Musculoskeletal: no edema, pulses present Dx/Plan (1) Pneumonia Code(s): J18.9 - PNEUMONIA, UNSPECIFIED ORGANISM Status: Acute (2) Diabetes Code(s): E11.9 - TYPE 2 DIABETES MELLITUS WITHOUT COMPLICATIONS Status: Chronic Qualifiers: Diabetes mellitus type: type 2 Diabetes mellitus senior living insulin use: with parts counterman use Diabetes mellitus complication status: with kidney complications Diabetes mellitus complication detail: with chronic kidney disease Chronic kidney disease stage: stage 1 Qualified Code(s): E11.22 - Type 2 diabetes mellitus with diabetic chronic kidney disease; N18.1 - Chronic kidney disease, stage 1; N18.1 - Chronic kidney disease, stage 1; Z79.4 - dedicated intermodal truck driver (current) use of insulin; Z79.4 - dedicated intermodal truck driver (current) use of insulin; Z79.4 - dedicated intermodal truck driver (current) use of insulin; Z79.4 - dedicated intermodal truck driver (current) use of insulin Comment: Fair control. Monitor accuchecks and adjust regimen as necessary. (3) ESRD (end stage renal disease) Code(s): N18.6 - END STAGE RENAL DISEASE Status: Chronic (4) Hypertension Code(s): I10 - ESSENTIAL (PRIMARY) HYPERTENSION Status: Chronic Qualifiers: Hypertension type: secondary to other renal disorders Qualified Code(s): I15.1 - Hypertension secondary to other renal disorders; N28.89 - Other specified disorders of kidney and ureter; N28.89 - Other specified disorders of kidney and ureter Comment: Fair control. Restart home medications as tolerated. (5) S/P kidney transplant Code(s): Z94.0 - KIDNEY TRANSPLANT STATUS Status: Chronic Comment: Continue home medications. (6) Sepsis Code(s): A41.9 - SEPSIS, UNSPECIFIED ORGANISM Status: Acute (7) Influenza A (H1N1) Code(s): J10.1 - FLU DUE TO OTH IDENT INFLUENZA VIRUS W OTH RESP MANIFEST Status: Acute - Plan * Pneumonia due to Influenza A- continue Tamiflu * Will discontinue antibiotics tomorrow * Post renal transplant status- stable * DM- blood glucose is elevated- will add Lantus at night * Neutropenia- WBC count still low- will re-check in the AM- if it appears to be recovering then consider D/C home.
[2018-09-13] MEDS: Simvastatin 5 MG TAB PO SCH (20:22)
[2018-09-13] MEDS: Tacrolimus 0.5 MG CAP PO SCH (20:23)
[2018-09-13] MEDS ORDERED: Insulin Glargine 15 UNITS in Pre-Filled Syringe 1 EACH SC SCH (21:00)
[2018-09-14] MEDS: Cefepime 2 GM in Sodium Chloride 0.9% 100 ML IVPB SCH ×3 (00:09→16:37)
[2018-09-14] MEDS: cloNIDine 0.1 MG TAB PO SCH ×3 (00:15→21:01)
[2018-09-14] MEDS: Vancomycin HCl 1 GM in Premix Bag 1 BAG IVPB SCH ×2 (03:53→17:36)
[2018-09-14] MEDS: Insulin Regular 300 UNITS/3 ML VIAL SC PRN ×4 (05:15→21:36)
[2018-09-14 06:13] LABS: Tacrolimus 3.9 ng/mL (2.0-20.0)
[2018-09-14 07:17] LABS: Hemoglobin 8.3 g/dL (12.0-16.0); Mean Corpuscular HGB CONC 30.9 g/dL (32.0-36.0); Mean Corpuscular Hemoglobin 26.2 pg (27.0-31.0); Mean Corpuscular Volume 84.8 fL (78.0-98.0); Mean Platelet Volume 9.8 fL (7.4-10.4); Platelet Count 171 thou/uL (130-400); RBC Distribution Width 13.4 % (11.5-14.5); Red Blood Cell (RBC) Count 3.15 mill/uL (4.20-5.40); White Blood Cell (WBC) Count 1.1 thou/uL (4.8-10.8)
[2018-09-14 07:33] LABS: Anion Gap 13 mmol/L (10-20); BUN (Urea Nitrogen) 16 mg/dL (7.0-18.7); Calc. Creatinine Clearance 87 mL/min (70-130); Carbon Dioxide 20 mmol/L (22-29); Chloride 104 mmol/L (98-107); Estimated GFR-MDRD 61; Glucose 314 mg/dL (70-105); Potassium 3.9 mmol/L (3.5-5.1); Sodium 133 mmol/L (136-145)
[2018-09-14 07:50] LABS: Band 6 % (5-11); Eosinophils 4 % (0-10); Hypochromia SLIGHT = 6-15 cells (100X) (0-5/hpf); Lymphocytes 36 % (21-51); MDiff Complete? YES; Monocytes 4 % (0-10); Neutrophil 46 % (42-75); Ovalocytes SLIGHT = 2-5 cells (100X) (0-1/hpf); Platelet Morphology Comment Appears Adequate; Polychromasia SLIGHT = 2-3 cells (100X) (0-2/hpf); Reactive Lymphocytes 2 % (0-10)
[2018-09-14] MEDS ORDERED: Insulin Glargine 10 UNITS in Pre-Filled Syringe 1 EACH SC SCH (09:00)
[2018-09-14] MEDS: predniSONE 5 MG TAB PO SCH (09:05)
[2018-09-14] MEDS: Polyethylene Glycol 3350 17 GM Packet PO SCH (09:05)
[2018-09-14] MEDS: Oseltamivir 75 MG CAP PO SCH ×2 (09:05→21:00)
[2018-09-14] MEDS: Aspirin 81 mg Enteric Coated Tablet PO SCH (09:05)
[2018-09-14] MEDS: Enoxaparin Sodium 40 MG/0.4 ML SYRINGE SC SCH (09:06)
[2018-09-14] MEDS: Tacrolimus 1 MG CAP PO SCH ×2 (09:06→21:01)
[2018-09-14] MEDS: Metoprolol Tartrate 25 MG TAB PO SCH ×2 (09:30→21:02)
--- NOTE | 2018-09-14 09:32 | PRG ---
DATE OF SERVICE: 09/14/2018 SUBJECTIVE: Ms. Thompson is a 43-year-old female, who was admitted for pneumonia. She has been started with IV antibiotics. Clinically improving. We are following up for her transplant management. Of interest, her white count has dropped to as low as 1.1. We have been tapering the CellCept. This morning, the white count was still persistently at 1.1 from a pneumonia point of view, clinically improving. OBJECTIVE: VITAL SIGNS: Blood pressure is 91/56, heart rate 81, respiratory rate 20, temperature 99.7, and pulse oximetry 95%. GENERAL: Noted to be awake, alert, comfortable, not in distress. SKIN: Adequate turgor. HEENT: Pinkish conjunctivae, anicteric sclerae. NECK: No neck mass. No carotid bruits. No JVD. LUNGS: Clear breath sounds. HEART: Normal sinus rhythm. No murmur. No gallops. No rubs. ABDOMEN: Globular, soft, nontender. No masses. EXTREMITIES: No edema, no deformities. MEDICATIONS: Medications of September 14, 2018, reviewed. White count was 1.1, hemoglobin 8.3, neutrophils is 46% band neutrophils is 6%. Sodium 133, potassium 3.9, chloride 104, carbon dioxide 20, BUN 16, creatinine 0.99, glucose 314, calcium 9.0. ASSESSMENT AND PLAN: 1. Relative hypotension, I will discontinue her nifedipine. We will give clonidine current dose. 2. Leukopenia, her neutrophils and bands had further gone down compared to 2 days ago. My plan is to completely stop the CellCept. 3. Status post cadaveric renal transplant. Continue prednisone and tacrolimus. The tacrolimus level is noted at 3.9 on September 10, 2018. My bias is to increase or adjust the tacrolimus upwards. We will increase the q.p.m. of tacrolimus from 0.5-1 mg. She will continue with the 2 mg in a.m. 4. Pneumonia, clinically much improved. Continuing IV antibiotics. 5. Recheck basic metabolic panel and CBC in a.m. Job ID: [id number]
[2018-09-14] MEDS: Insulin Glargine 25 UNITS in Pre-Filled Syringe 1 EACH SC SCH ×2 (11:08→21:36)
[2018-09-14 15:19] LABS: Vancomycin, Trough 19.8 ug/mL
--- NOTE | 2018-09-14 15:26 | PDOC.PN ---
- Subjective Encounter Start Date: 09/14/18 Encounter Start Time: 13:00 Subjective: c/o putting on fluid over her entire body -: no fever, has sob+ -: is amb in room - Objective Resuscitation Status - Order Detail: 09/11/18 05:50 Resuscitation Status Routine Resuscitation Status: FULL: Full Resuscitation MAR Reviewed: Yes Vital Signs & Weight: Vital Signs (12 hours) Temp Pulse Resp BP BP Pulse Ox 09/14/18 12:45 98.7 F 81 18 109/74 92 L 09/14/18 09:30 91/46 L 09/14/18 09:03 95 09/14/18 08:08 99.7 F H 81 20 91/56 L 95 Weight Weight 164 lb 15.903 oz I&O: 09/13/18 09/14/18 09/15/18 06:59 06:59 06:59 Intake Total 800 1850 Balance 800 1850 Result Diagrams: 09/14/18 07:00 09/14/18 07:00 Additional Labs: Accuchecks 09/14/18 09/14/18 09/13/18 11:53 05:16 20:23 POC Glucose 319 H 316 H 501 H 09/13/18 16:42 POC Glucose 488 H Phys Exam - Physical Examination HEENT: PERRLA, moist MMs Neck: no JVD, supple Respiratory: no wheezing, no rales rhonchi++, distant breath sounds Cardiovascular: RRR, no significant murmur Gastrointestinal: soft, non-tender, positive bowel sounds Musculoskeletal: no edema, pulses present Neurological: non-focal, moves all 4 limbs Psychiatric: normal affect, A&O x 3 Dx/Plan (1) Pneumonia Code(s): J18.9 - PNEUMONIA, UNSPECIFIED ORGANISM Status: Acute Qualifiers: Pneumonia type: due to influenza A virus Laterality: bilateral (2) Sepsis Code(s): A41.9 - SEPSIS, UNSPECIFIED ORGANISM Status: Acute Qualifiers: Sepsis type: sepsis due to unspecified organism Qualified Code(s): A41.9 - Sepsis, unspecified organism (3) Influenza A (H1N1) Code(s): J10.1 - FLU DUE TO OTH IDENT INFLUENZA VIRUS W OTH RESP MANIFEST Status: Acute (4) Pancytopenia Code(s): D61.818 - OTHER PANCYTOPENIA Status: Acute (5) H/O kidney transplant Status: Chronic (6) Anemia Code(s): D64.9 - ANEMIA, UNSPECIFIED Status: Chronic Qualifiers: Anemia type: due to chronic kidney disease (7) DM2 (diabetes mellitus, type 2) Status: Chronic Qualifiers: Diabetes mellitus care home insulin use: with terminal superintendent use Diabetes mellitus complication status: with kidney complications (8) Hypertension Code(s): I10 - ESSENTIAL (PRIMARY) HYPERTENSION Status: Chronic Qualifiers: Hypertension type: secondary to other renal disorders Qualified Code(s): I15.1 - Hypertension secondary to other renal disorders; N28.89 - Other specified disorders of kidney and ureter; N28.89 - Other specified disorders of kidney and ureter Comment: is hypotensive now - Plan will obtain ct chest -: has signs of vol overload, ?ARDS -: has low BP, is on very high doses of antihtn meds at home -: ID consult due to immunosuppresion, viral illness, hypotension, pancytopeni -: continue tamiflu, cefepime, vanc, lantus, asp * . prograf dose per 's adv may hold prograf and steroid doses if ok with very small dose of lopressor and clonidine to prevent rebound with drawal. Review of Systems - Medications/Allergies Allergies/Adverse Reactions: Allergies Allergy/AdvReac Type Severity Reaction Status Date / Time amlodipine AdvReac HYPOTENSION Verified 12/03/17 10:55 (SENSATIVITY) Medications: Current Medications Acetaminophen (Tylenol) 650 mg PO Q6H PRN PRN Reason: Headache/Fever or Pain Last Admin: 09/13/18 20:33 Dose: 650 mg Acetaminophen/Codeine Phosphate (Tylenol #3) 1 tab PO Q6H PRN PRN Reason: Pain Last Admin: 09/12/18 05:21 Dose: 1 tab Aspirin (Ecotrin) 81 mg PO DAILY [facility] Last Admin: 09/14/18 09:05 Dose: 81 mg Clonidine (Catapres) 0.1 mg PO BID [facility] Last Admin: 09/14/18 09:30 Dose: Not Given Dextrose/Water (Dextrose 50%) 25 gm SLOW IVP PRN PRN PRN Reason: Hypoglycemia Docusate Sodium (Colace) 100 mg PO BIDPRN PRN PRN Reason: Constipation Last Admin: 09/13/18 04:39 Dose: 100 mg Enoxaparin Sodium (Lovenox) 40 mg SC 0900 [facility] Last Admin: 09/14/18 09:06 Dose: 40 mg Glucagon (Glucagon) 1 mg IM PRN PRN PRN Reason: Hypoglycemia Dextrose/Water (D5w) 1,000 mls @ 0 mls/hr IV .Q0M PRN PRN Reason: Hypoglycemia Cefepime HCl 2 gm/ Sodium (Chloride) 100 mls @ 200 mls/hr IVPB 0800,1600,2359 [facility] Last Admin: 09/14/18 09:04 Dose: 100 mls Vancomycin HCl 1 gm/ Device 200 mls @ 200 mls/hr IVPB 0400,1600 [facility] Last Admin: 09/14/18 03:53 Dose: 200 mls Insulin Glargine 25 units/ (Miscellaneous Medication) 0.25 mls @ 0 mls/hr SC BID [facility] Last Admin: 09/14/18 11:08 Dose: 0.25 mls Insulin Human Regular (Humulin R) 0 units SC .MILD SLIDING SCALE PRN PRN Reason: Mild Correctional Scale Last Admin: 09/14/18 12:30 Dose: 5 unit Metoprolol Tartrate (Lopressor) 25 mg PO BID [facility] Last Admin: 09/14/18 09:30 Dose: Not Given Miscellaneous Medication (Pharmacy To Dose) 1 each IVPB PRN PRN PRN Reason: Pharmacy to dose Ondansetron HCl (Zofran) 4 mg IVP Q4H PRN PRN Reason: Nausea/Vomiting Ondansetron HCl (Zofran Odt) 4 mg SL Q4H PRN PRN Reason: Nausea/Vomiting Oseltamivir Phosphate (Tamiflu) 75 mg PO BID [facility] Stop: 09/17/18 21:01 Polyethylene Glycol (Miralax) 17 gm PO DAILY [facility] Last Admin: 09/14/18 09:05 Dose: 17 gm Prednisone (Prednisone) 10 mg PO DAILY [facility] Last Admin: 09/14/18 09:05 Dose: 10 mg Sertraline HCl (Zoloft) 50 mg PO HS [facility] Last Admin: 09/13/18 20:23 Dose: 50 mg Simvastatin (Zocor) 10 mg PO HS [facility] Last Admin: 09/13/18 20:22 Dose: 10 mg Tacrolimus (Prograf) 2 mg PO QAM [facility] Last Admin: 09/14/18 09:06 Dose: 2 mg Tacrolimus (Prograf) 2 mg PO QPM [facility] Last Admin: 09/13/18 20:23 Dose: 2 mg Tacrolimus (Prograf) 1 mg PO QPM [facility]
--- NOTE | 2018-09-14 17:01 | CT ---
CT OF THE CHEST WITHOUT CONTRAST: 09/14/18 COMPARISON: None. HISTORY: Immunosuppressed patient with influenza and pneumonia. TECHNIQUE: Multiple contiguous axial images were obtained in a CT of the chest without contrast. Coronal reforma ts were performed. FINDINGS: There are multiple focal air space opacities scattered throughout the lungs consistent with multifoca l pneumonia. No mass is seen. No pneumothorax or pleural effusion are present. The heart is normal in size. Calcifications seen in the coronary arteries and aorta. No hilar or medi astinal lymphadenopathy are appreciated on this limited noncontrast examination. The kidneys demonstrate cortical thinning. There are hyperdensities in the gallbladder most likely re presenting gallstones. The other visualized subdiaphragmatic structures are unremarkable. The osseous structures and chest wall soft tissues are unremarkable. IMPRESSION: Multifocal pneumonia. POS: [facility]
[2018-09-14] MEDS: Simvastatin 5 MG TAB PO SCH (21:00)
[2018-09-14] MEDS ORDERED: Tacrolimus 0.5 MG CAP PO SCH (21:00)
--- NOTE | 2018-09-14 23:41 | CON ---
DATE OF CONSULTATION: 09/14/2018 REASON FOR CONSULTATION: Pneumonia. HISTORY OF PRESENT ILLNESS: A 43-year-old who has a history of renal transplant on immunosuppressive medication, renal transplant occurred about 7 months before. She has also hypertension, hyperlipidemia, and type 1 diabetes mellitus. She was brought to the hospital after development of fever, chills, body aches, and cough, and she had mild abnormalities in the chest x-ray, started on broad-spectrum coverage. Influenza A respiratory virus PCR test was positive. She is feeling better. She is back to baseline pretty much. No headaches. No visual symptoms, sore throat, odynophagia, or dysphagia. Cough has resolved. No chest pain. No sputum production. No back pain. No abdominal pain or diarrhea. No genitourinary symptoms. No neurological symptoms. PAST MEDICAL HISTORY: Type 1 diabetes mellitus, hypertension, recent renal transplant about 7 months ago, previous UTI, left cataract operation, left arm AV fistula for dialysis. SOCIAL HISTORY: Drinks occasionally. Never smoker. She is . FAMILY HISTORY: Noncontributory. ALLERGIES: 1. NSAIDS. 2. PSEUDOEPHEDRINE. CURRENT MEDICATIONS: 1. Aspirin. 2. Cefepime. 3. Clonidine. 4. Dextrose. 5. Docusate. 6. Enoxaparin. 7. Insulin. 8. Metoprolol. 9. Ondansetron. 10. Oseltamivir. 11. Prednisone. 12. Zoloft. 13. Tacrolimus. 14. Vancomycin. PHYSICAL EXAMINATION: VITAL SIGNS: T-max 100.4, she is now 99.7, BP 109/74, pulse 81, respirations 18. GENERAL: Appears in no distress. Awake, alert, and oriented. SKIN: Shows peripheral IV access. No Arita catheter. HEENT: No lymphadenopathy. Ocular movements conjugate. Oral cavity moist. Numerous teeth in place. NECK: Supple. No jugular veinous distention. No thyromegaly. LUNGS: With fairly clear breath sounds. HEART: S1 and S2, regular rate. No S3, S4, or murmurs. ABDOMEN: Soft, not distended or tender. No ascites. No bladder distention. EXTREMITIES: No joint inflammatory activity. No edema. Pulses are 1+ in dorsalis pedis. She moves extremities equally. NEUROLOGIC: Cognitive function appears to be intact. LABORATORY DATA: White cell count is 2.4 and now is 1.1, hemoglobin 8.3, platelets 171, 46% neutrophils, 6% bands, 36% lymphocytes, total neutrophil count is a little bit about 550. Creatinine 0.99. The liver profile was normal. Procalcitonin 0.1. Urinalysis with 21 to 50 wbc's. Blood cultures, no growth for 48 hours, and respiratory virus PCR panel with influenza A detected and rhino virus as well. Chest x-ray with subsegmental minor infiltrates. Chest CT with multifocal pneumonia. ASSESSMENT: 1. Renal transplant. 2. Pneumonia, probably secondary to influenza A. 3. Neutropenia. DISCUSSION: The most likely scenario is influenza associated pneumonitis. I would recommend discontinuation of antimicrobial therapy and continue oseltamivir for a total of 10 days since she is immunosuppressed. The patients with influenza are at high risk for developing bacterial pneumonia, but right now she is doing very well. The clinical data and radiological findings are quite subdued and it is unlikely that she has a bacterial pneumonia superimposed at this time. Job ID: [id number]
[2018-09-15 08:52] LABS: Anion Gap 11 mmol/L (10-20); BUN (Urea Nitrogen) 11 mg/dL (7.0-18.7); Calc. Creatinine Clearance 116 mL/min (70-130); Carbon Dioxide 23 mmol/L (22-29); Chloride 107 mmol/L (98-107); Estimated GFR-MDRD 86; Glucose 161 mg/dL (70-105); Potassium 3.5 mmol/L (3.5-5.1); Sodium 137 mmol/L (136-145)
[2018-09-15] MEDS ORDERED: Tacrolimus 0.5 MG CAP PO SCH (08:54)
[2018-09-15] MEDS: cloNIDine 0.1 MG TAB PO SCH (09:01)
[2018-09-15] MEDS: Aspirin 81 mg Enteric Coated Tablet PO SCH (09:01)
[2018-09-15] MEDS: Metoprolol Tartrate 25 MG TAB PO SCH (09:01)
[2018-09-15] MEDS: predniSONE 5 MG TAB PO SCH (09:02)
[2018-09-15] MEDS: Polyethylene Glycol 3350 17 GM Packet PO SCH (09:02)
[2018-09-15] MEDS: Tacrolimus 1 MG CAP PO SCH (09:03)
[2018-09-15] MEDS: Enoxaparin Sodium 40 MG/0.4 ML SYRINGE SC SCH (09:04)
[2018-09-15] MEDS: Oseltamivir 75 MG CAP PO SCH (09:04)
[2018-09-15 09:17] LABS: Band 10 % (5-11); Eosinophils 6 % (0-10); Hemoglobin 7.7 g/dL (12.0-16.0); Hypochromia SLIGHT = 6-15 cells (100X) (0-5/hpf); Lymphocytes 36 % (21-51); MDiff Complete? YES; Mean Corpuscular HGB CONC 31.3 g/dL (32.0-36.0); Mean Corpuscular Hemoglobin 26.4 pg (27.0-31.0); Mean Corpuscular Volume 84.4 fL (78.0-98.0); Mean Platelet Volume 10.3 fL (7.4-10.4); Monocytes 14 % (0-10); Neutrophil 34 % (42-75); Ovalocytes SLIGHT = 2-5 cells (100X) (0-1/hpf); Platelet Count 171 thou/uL (130-400); Platelet Morphology Comment Appears Adequate; Polychromasia MODERATE = 3-4 cells (100X) (0-2/hpf); RBC Distribution Width 13.6 % (11.5-14.5); Red Blood Cell (RBC) Count 2.93 mill/uL (4.20-5.40)
[2018-09-15] MEDS: Insulin Glargine 25 UNITS in Pre-Filled Syringe 1 EACH SC SCH (09:39)
--- NOTE | 2018-09-15 09:40 | PRG ---
DATE OF SERVICE: 09/15/2018 SERVICE: Renal Medicine. SUBJECTIVE: Ms. Thompson is a 43-year-old female, who is status post cadaveric renal transplant and admitted for pneumonia. Currently, on IV antibiotics. She was empirically treated for influenza, but the Tamiflu has been discontinued by her ID doctor. She was also noted to be leukopenic and for that reason, we have decided to discontinue the CellCept. No other complaints. In addition, her tacrolimus level was subtherapeutic. For that reason, we increased her tacrolimus to 2 mg in the morning and 3 mg at night. The tacrolimus level will be eventually checked in a few days. No other complaints. No chest pain or shortness of breath. OBJECTIVE: VITAL SIGNS: Blood pressure 160/78, heart rate 84, respiratory rate 16, temperature 97.9, and pulse ox 97%. GENERAL EXAM: Awake, alert, comfortable, not in distress. SKIN: Adequate turgor. HEENT: She has slightly pale conjunctivae. Anicteric sclerae. NECK: No neck mass. No carotid bruits. No JVD. CHEST: No deformities. LUNGS: Clear breath sounds. HEART: Normal sinus rhythm. No murmur. No gallops. No rubs. ABDOMEN: Globular, soft, nontender. No masses. EXTREMITIES: No edema. No deformities. MEDICATIONS: Medications of September 15, 2018, was reviewed. LABORATORY DATA: Laboratories of September 15, 2018, pending. Laboratories of September 14, 2018, white count 1.1, hemoglobin 8.3. September 15, 2018, sodium 137, potassium 3.5, chloride 107, carbon dioxide 23, BUN 11, creatinine 0.74, glucose 161, calcium 9.0. ASSESSMENT AND PLAN: 1. Status post cadaveric renal transplant. Stable renal function. Continue current immunosuppressive regimen. The patient is off CellCept. Tacrolimus has been adjusted to 2 mg in the morning and 3 mg at night. 2. Leukopenia-most likely drug-induced. We will hold CellCept temporarily. 3. Pneumonia, clinically much improved. ID is following. 4. Overall, we agree with current management. Recheck basic metabolic panel and CBC in the morning. I reviewed the recommendation by ID. The feeling is that the patient may have influenza-associated pneumonitis. His recommendation, discontinuation of the antimicrobial therapy and continue Tamiflu for total of 10 days. Job ID: [id number]
[2018-09-15] MEDS: Insulin Regular 300 UNITS/3 ML VIAL SC PRN (12:52)
--- NOTE | 2018-09-15 14:29 | PDOC.PN ---
- Subjective Encounter Start Date: 09/15/18 Encounter Start Time: 08:30 Subjective: she feels good and wants to go home -: no sob, is amb in room and is eating better now - Objective Resuscitation Status - Order Detail: 09/11/18 05:50 Resuscitation Status Routine Resuscitation Status: FULL: Full Resuscitation MAR Reviewed: Yes Vital Signs & Weight: Vital Signs (12 hours) Temp Pulse Resp BP BP Pulse Ox 09/15/18 11:00 98.0 F 76 16 132/70 97 09/15/18 09:15 97 09/15/18 09:01 160/78 H 09/15/18 08:00 97.9 F 84 16 160/78 H 97 09/15/18 04:00 98.1 F 88 20 133/73 93 L Weight Weight 164 lb 15.903 oz I&O: 09/14/18 09/15/18 09/16/18 06:59 06:59 06:59 Intake Total 1850 600 Balance 1850 600 Result Diagrams: 09/15/18 08:12 09/15/18 08:12 Additional Labs: Accuchecks 09/15/18 09/15/18 09/14/18 11:42 05:35 21:37 POC Glucose 338 H 137 H 388 H 09/14/18 09/14/18 19:51 17:01 POC Glucose 456 H 447 H Phys Exam - Physical Examination HEENT: PERRLA, moist MMs Neck: no JVD, supple Respiratory: no wheezing, no rales Cardiovascular: RRR, no significant murmur Gastrointestinal: soft, non-tender, positive bowel sounds Musculoskeletal: pulses present Neurological: non-focal, moves all 4 limbs Psychiatric: normal affect, A&O x 3 Dx/Plan (1) Pneumonia Code(s): J18.9 - PNEUMONIA, UNSPECIFIED ORGANISM Status: Acute Qualifiers: Pneumonia type: due to influenza A virus Laterality: bilateral (2) Sepsis Code(s): A41.9 - SEPSIS, UNSPECIFIED ORGANISM Status: Acute Qualifiers: Sepsis type: sepsis due to unspecified organism Qualified Code(s): A41.9 - Sepsis, unspecified organism (3) Influenza A (H1N1) Code(s): J10.1 - FLU DUE TO OTH IDENT INFLUENZA VIRUS W OTH RESP MANIFEST Status: Acute (4) Pancytopenia Code(s): D61.818 - OTHER PANCYTOPENIA Status: Acute (5) H/O kidney transplant Status: Chronic (6) Anemia Code(s): D64.9 - ANEMIA, UNSPECIFIED Status: Chronic Qualifiers: Anemia type: due to chronic kidney disease (7) DM2 (diabetes mellitus, type 2) Status: Chronic Qualifiers: Diabetes mellitus terminal gauger supervisor insulin use: with fci use Diabetes mellitus complication status: with kidney complications (8) Hypertension Code(s): I10 - ESSENTIAL (PRIMARY) HYPERTENSION Status: Chronic Qualifiers: Hypertension type: essential hypertension Qualified Code(s): I10 - Essential (primary) hypertension - Plan hemostable -: dc pt home -: d/w agrees with dc home on tamiflu x 8 days -: immunosuppressive meds per 's adv * .
[2018-09-15 16:12] VITALS: BP 167/78; TEMP 98.4
[2018-09-15] MEDS ORDERED: Tacrolimus 1 MG CAP PO SCH (21:00)
[2018-09-16 07:29] LABS: Tacrolimus 2.8 ng/mL (2.0-20.0)
--- NOTE | 2018-09-16 10:26 | DIS ---
DATE OF ADMISSION: 09/11/2018 DATE OF DISCHARGE: 09/15/2018 DISCHARGE DISPOSITION: To home. PRIMARY DISCHARGE DIAGNOSES: Influenza A virus with pneumonia and sepsis, immunocompromised state due to recent kidney transplant, pancytopenia, diabetes mellitus type 2, and hypertension. PROCEDURES DONE DURING HOSPITALIZATION: CT chest done shows multifocal patchy infiltrates. Respiratory virus panel, PCR was positive for influenza A (H1) and rhinovirus. Blood cultures x2, no growth. Urine culture was contaminated with mixed martha. White count of 1.0, H and H 7.7 and 24, platelet count 171, MCV is 84 with 34% neutrophils, 36% lymphocytes, and 14% monocytes on the day of discharge. BUN 11, creatinine 0.7 on the day of discharge. Serum bicarb was 23 on the day of discharge. Procalcitonin was 0.10 on the day of admission. Tacrolimus levels were 3.9 ng/mL on the day of admission. DISCHARGE MEDICATIONS: 1. Tamiflu 75 mg p.o. twice daily for another 8 days. 2. Lopressor 25 mg twice daily. 3. Lantus 25 units subcu twice daily. 4. Clonidine 0.1 mg p.o. twice daily. 5. Prograf 2 mg p.o. q.a.m. and 2.5 mg p.o. q.p.m. 6. Prednisone 10 mg p.o. daily. 7. Sertraline 50 mg p.o. q.h.s. 8. Pravastatin 20 mg p.o. q.h.s. 9. MiraLAX 17 g daily. 10. CellCept 1000 mg twice daily. 11. Humalog 10 units subcu before meals. 12. Pepcid 20 mg p.r.n. 13. Colace 100 mg twice daily. 14. Aspirin 81 mg p.o. daily. ALLERGIES: TO AMLODIPINE. INPATIENT CONSULTS: 1. Dr. Cook for Nephrology. 2. Dr. Vazquez for Infectious Disease. DISCHARGE PLAN: The patient to follow up with primary care physician in [address] Cook in 2 weeks. BRIEF COURSE DURING HOSPITALIZATION: The patient initially was brought to emergency room for fever and flu-like symptoms. The patient was admitted due to her immunocompromised state with kidney transplant and being on CellCept and Prograf. Her initial nasal swab was negative for flu antigens A and B. The patient has had viral PCR done, which came back positive for influenza A (H1N1) and rhinovirus. A CT chest done showed multifocal patchy infiltrates. The patient also had pancytopenia. In view of this, she was admitted to medical floor and was on Tamiflu along with empiric antibiotics initially, which were discontinued later. Her CellCept was held, but Prograf was continued. She was evaluated by Dr. Vazquez for Infectious Disease and Dr. Cook for Nephrology. Prior to discharge, she is ambulating and eating well. She is wanting to go home. The patient needs to follow up with her primary care physician in 1 week and her transplant physicians in [address] Cook. Please see a [id number] documentation for the day of discharge on [employer]. Job ID: [id number] MTDD
== END 2018-09-15 16:10 | disposition home or self-care (01) | DRG 871 ==
LOC: ERS 20:14 → T4-B 09-11 05:08 → OBSVTOIN 09-11 05:09
PROVIDERS: ADMIT Hospitalist; ATTEND Hospitalist
DX: A41.89 Other specified sepsis (principal); J10.01 Influenza due to other identified influenza virus with the same other identified influenza virus pneumonia; D61.811 Other drug-induced pancytopenia; J18.9 Pneumonia, unspecified organism; Z94.0 Kidney transplant status; N39.0 Urinary tract infection, site not specified; I12.9 Hypertensive chronic kidney disease with stage 1 through stage 4 chronic kidney disease, or unspecified chronic kidney disease; E78.00 Pure hypercholesterolemia, unspecified; N18.1 Chronic kidney disease, stage 1; Z98.51 Tubal ligation status; D63.1 Anemia in chronic kidney disease; E11.22 Type 2 diabetes mellitus with diabetic chronic kidney disease; I95.9 Hypotension, unspecified; Z88.8 Allergy status to other drugs, medicaments and biological substances; Z79.4 Long term (current) use of insulin
CPT/HCPCS: 36415; 36416; 71045; 71250; 80048; 80053; 80197; 80202; 81003; 81015; 83605; 84145; 85025; 87040; 87086; 87633; 87798; 87804; J0692; J1650; J1815; J1825; J1956; J2405; J3370; J7050; J7507; J7512; J7517

== ENCOUNTER 2018-09-23 09:57 | Outpatient (CLI) | payer BC, MEDICARE ==
--- NOTE | 2018-09-23 10:18 | RAD ---
RADIOGRAPH CHEST 2 VIEWS: Date: 09/23/2018. Time: 11:07 a.m. HISTORY: A 43-year-old female with fever. Followup pneumonia. COMPARISON: 09/10/2018. FINDINGS: The obliquely vertically oriented infiltrate in the right upper lobe appears similar to 09/10/2018. T he transversely oriented plate-like density at the left mid lung zone appears slightly less prominent on the current study. It is noted that the CT of 09/14/2018 demonstrated consolidations in the bilate ral upper lobes and left lower lobe consistent with pneumonia. Cardiac size is mildly enlarged. Tin y bilateral pleural effusions are questioned on this study. No pneumothorax. The infiltrates have i mproved compared to scanogram for the CT of 09/14/2018. IMPRESSION: 1. Bilateral infiltrates have improved compared to 09/14/2018, representing improvement in pneumonia. 2. Tiny bilateral pleural effusions. 3. Borderline cardiomegaly. JN [] POS: [facility]
== END 2018-09-23 09:58 | disposition home or self-care (01) ==
LOC: RAD-FRANK 09:57
PROVIDERS: ATTEND Nurse Practitioner Family
DX: R50.9 Fever, unspecified (principal); J18.9 Pneumonia, unspecified organism; J90 Pleural effusion, not elsewhere classified; I51.7 Cardiomegaly; R91.8 Other nonspecific abnormal finding of lung field
CPT/HCPCS: 71046

== ENCOUNTER 2018-12-30 15:57 | Outpatient (CLI) | payer MEDICARE ==
--- NOTE | 2018-12-30 16:12 | RAD ---
Chest 2 views HISTORY: Cough. COMPARISON: 09/23/2018. FINDINGS: Cardiac silhouette and pulmonary vasculature are unremarkable. Mediastinum is midline. No c onfluent airspace consolidation, pneumothorax, or pleural fluid are apparent. IMPRESSION: No active cardiopulmonary abnormalities are demonstrated.
== END 2018-12-30 15:58 | disposition home or self-care (01) ==
LOC: RAD-FRANK 15:57
PROVIDERS: ATTEND Nurse Practitioner Family
DX: R05 Cough (principal)
CPT/HCPCS: 71046

== ENCOUNTER 2019-06-09 12:12 | Inpatient (IN) | payer MEDICARE, BC ==
[2019-06-09 12:57] LABS: Hemoglobin 10.7 g/dL (12.0-16.0); Mean Corpuscular HGB CONC 29.7 g/dL (32.0-36.0); Mean Corpuscular Hemoglobin 22.4 pg (27.0-31.0); Mean Corpuscular Volume 75.3 fL (78.0-98.0); Mean Platelet Volume 10.1 fL (7.4-10.4); Platelet Count 383 thou/uL (130-400); RBC Distribution Width 17.2 % (11.5-14.5); White Blood Cell (WBC) Count 8.1 thou/uL (4.8-10.8)
[2019-06-09 13:13] LABS: Base Excess-Venous -17.6 mmol/L (-2.0 to 3.0); CO2 Tension (PvCO2) 19.5 mmHg (40.0-50.0); Calcium, Ionized 1.25 mmol/L (See Comments:); Chloride 117 mmol/L (98-107); Hemoglobin - Calc 13.6 g/dL (12.0-16.0); Potassium 5.4 mmol/L (3.5-5.1); Sodium 136 mmol/L (138-145); T. Carbon Dioxide 8.6 mmol/L (22.0-28.0); vO2 Saturation-calc 89.1 % (60.0-85.0)
[2019-06-09 13:14] LABS: Anisocytosis SLIGHT = 6-15 cells (100X) (0-5/hpf); Band 4 % (5-11); Burr Cells SLIGHT = 2-5 cells (100X) (0-1/hpf); Hypochromia SLIGHT = 6-15 cells (100X) (0-5/hpf); Lymphocytes 4 % (21-51); MDiff Complete? YES; Microcytosis SLIGHT = 6-15 cells (100X) (0-5/hpf); Monocytes 4 % (0-10); Neutrophil 88 % (42-75); Ovalocytes SLIGHT = 2-5 cells (100X) (0-1/hpf); Platelet Morphology Comment Appears Adequate; Polychromasia SLIGHT = 2-3 cells (100X) (0-2/hpf)
[2019-06-09 13:16] LABS: ALT (SGPT) 12 U/L (8-55); AST (SGOT) 19 U/L (5-34); Albumin 3.9 g/dL (3.5-5.0); Alkaline Phosphatase 174 U/L (40-110); BUN (Urea Nitrogen) 52 mg/dL (7.0-18.7); Bilirubin, Total 0.2 mg/dL (0.2-1.2); Calc. Creatinine Clearance 0 mL/min (70-130); Calcium 11.1 mg/dL (7.8-10.44); Chloride 108 mmol/L (98-107); Estimated GFR-MDRD 21; Globulin 4.2 g/dL (2.4-3.5); Potassium 5.9 mmol/L (3.5-5.1); Protein, Total 8.1 g/dL (6.0-8.3); Sodium 138 mmol/L (136-145)
[2019-06-09 13:23] LABS: Carbon Dioxide Less than 8 mmol/L (22-29); Glucose 652 mg/dL (70-105)
[2019-06-09] MEDS ORDERED: Insulin Regular 300 UNITS/3 ML VIAL ONE ×2 (13:31→13:32)
[2019-06-09] MEDS ORDERED: Ondansetron PF 4 MG/2 ML Vial ONE (13:44)
[2019-06-09] MEDS ORDERED: Insulin Regular 100 units/100 ml in NS IVPB SCH (13:45)
--- NOTE | 2019-06-09 14:12 | RAD ---
PORTABLE CHEST: Date: 06/09/19 HISTORY: Mental status change. COMPARISON: 09/10/18. FINDINGS: Lungs appear clear. No infiltrate identified. Heart and mediastinum unremarkable. IMPRESSION: No acute process identified. POS: [facility]
[2019-06-09 15:16] LABS: CKMB 8.6 ng/mL (0-6.6)
[2019-06-09] MEDS ORDERED: HUMULIN R 100 UNITS in Sodium Chloride 0.9% 100 ML IVPB SCH (15:30)
[2019-06-09] MEDS ORDERED: Dextrose 5 %-0.45 % NaCl 1,000 ML IV PRN (15:30)
[2019-06-09] MEDS ORDERED: CCU Electrolyte Replacement 1 EACH IVPB ONE (15:30)
[2019-06-09] MEDS ORDERED: Sodium Chloride 0.9% 1,000 ML IV PRN ×4 (15:30)
[2019-06-09] MEDS ORDERED: NS 0.9% w/ 20 MEQ KCL 1,000 ML IV PRN ×2 (15:30)
[2019-06-09 15:49] LABS: Bilirubin Negative (Negative); Blood, Urine 3+ (Negative); Clarity Turbid (Clear); Glucose, Urine (Dipstick) Greater than 1000 mg/dL (Negative); Leukocyte Negative Leu/uL (Negative); Nitrite Negative (Negative); Protein, Urine (Dipstick) 100 mg/dL (Neg-Trace); RBC/HPF Greater than 50 HPF (0-3); Urobilinogen Normal mg/dL (Less than 2)
[2019-06-09] MEDS ORDERED: Potassium Phosphate 15 MMOL in Sodium Chloride 0.9% 250 ML 250 ML IV PRN (15:49)
[2019-06-09] MEDS ORDERED: Potassium Phosphate 9 MMOL in Sodium Chloride 0.9% 100 ML IVPB PRN (15:49)
[2019-06-09] MEDS ORDERED: CCU ELECTROLYTE REPLACEMENT PROTOCOL FS PRN (15:49)
[2019-06-09] MEDS ORDERED: Potassium Phosphate 12 MMOL in Sodium Chloride 0.9% 250 ML 250 ML IV PRN (15:49)
[2019-06-09] MEDS ORDERED: Potassium Chloride 20 MEQ TAB PO PRN (15:49)
[2019-06-09] MEDS ORDERED: Magnesium Oxide 400 MG TAB PO PRN ×2 (15:49)
[2019-06-09] MEDS ORDERED: Potassium Chloride 40 MEQ in Premix Bag 1 BAG IVPB PRN (15:49)
[2019-06-09] MEDS ORDERED: Magnesium 2 GM/50 ML 2 GM in Premix Bag 1 BAG IVPB PRN (15:49)
[2019-06-09] MEDS ORDERED: PHOS-NAK 1 PKT PACK PO PRN ×2 (15:49)
[2019-06-09] MEDS ORDERED: Potassium Chloride 40 MEQ in Sodium Chloride 0.9% 250 ML 250 ML IVPB PRN (15:49)
[2019-06-09 15:57] LABS: Bacteria/HPF None Seen HPF (None Seen)
[2019-06-09] MEDS ORDERED: Enoxaparin Sodium 60 MG/0.6 ML SYRINGE SC SCH (16:00)
[2019-06-09] MEDS ORDERED: Aspirin 325 mg Enteric Coated Tablet PO SCH (16:00)
[2019-06-09 16:17] LABS: Hemoglobin A1c 10.2 % (4.0-6.0)
[2019-06-09] MEDS ORDERED: Aspirin 325 MG TAB ONE (16:17)
[2019-06-09] MEDS ORDERED: Enoxaparin Sodium 60 MG/0.6 ML SYRINGE ONE (16:17)
--- NOTE | 2019-06-09 17:01 | HP ---
PRIMARY CARE PHYSICIAN: None. The patient's paper final inspector is located at [facility]. CHIEF COMPLAINT: Fevers, nausea, vomiting, altered mental status times days. HISTORY OF PRESENT ILLNESS: This is a 44-year-old female with past medical history of type 1 diabetes mellitus, reportedly compliant on unknown insulin; ESRD, status post cadaveric renal transplant on May 08, 2017, reportedly compliant on Prograf 2.5 b.i.d., CellCept 1000 mg p.o. b.i.d., and prednisone 10 mg p.o. daily; hypertension; and dyslipidemia, who was brought into [facility] ER by spouse for a 4- to 5-day history of fevers complaints as well as nausea, vomiting, and confusion that started last night associated with diminished oral intake and myalgias prompting further evaluation. Spouse reports the patient began to have low-grade temperature over the weekend, did not relieve with Tylenol. On Thursday, she called her nurse practitioner's office and was prescribed cefdinir, which she began yesterday, and last night began to have notable confusion, 4 to 5 episodes of emesis with diminished oral intake, and myalgias prompting further evaluation. No further details can be obtained. Spouse when the patient's last insulin dose was. In ER, serum glucose was 652 with metabolic acidosis and unable to calculate anion gap. Lactic acid was 1.0. Initial troponin I was 1.694 with 12-lead EKG suggesting ST-T-wave depressions in leads V1 and V2 in the absence of anginal complaints. BUN and creatinine were elevated at 52/2.41, GFR 21 with serum potassium 5.9. The patient was administered 1 L normal saline bolus, 10 units subcutaneous regular insulin followed by IV regular insulin drip, IV Zofran, admitted for further inpatient evaluation to [facility]. At bedside, the patient is oriented to self, mumbles often incoherently, and spouse is present and notes that the patient is confused and not at baseline. Noted recent hospitalization months ago secondary to pneumonia and viral infection. No further history can be ascertained at this time. Collateral information is obtained from ER physician and review of chart records. PAST MEDICAL HISTORY: Type 1 diabetes mellitus; ESRD, status post cadaveric renal transplant in April 2017, reportedly compliant on Prograf 2.5 b.i.d., CellCept 1000 mg b.i.d., and prednisone 10 mg daily; hypertension; and dyslipidemia. PAST SURGICAL HISTORY: Tubal ligation, cataract surgery, and renal transplant. SOCIAL HISTORY: No reported tobacco, alcohol, or drug use. ALLERGIES: NONE DOCUMENTED. REVIEW OF SYSTEMS: Pertinent positives noted as per HPI. Remainder of review of systems is otherwise negative. Limited due to the patient's MEDICATIONS: Medications will be reviewed as per admission medication reconciliation. FAMILY HISTORY: Vague and reported for diabetes in the family members. PHYSICAL EXAMINATION: VITAL SIGNS: T-max afebrile at 97.9, pulse 84 to 91, blood pressure 152/74, oxygen 100% on room air, respirations 14 to 16 and unlabored. GENERAL APPEARANCE: This is a middle-aged female, who is awake, oriented to self, and otherwise confused and disoriented. HEENT: Normocephalic and atraumatic. No facial asymmetry. Pupils are equally round. Extraocular muscles are intact. Dry oral mucous membranes. NECK: Supple. CARDIOVASCULAR: S1 and S2. Regular rate and rhythm. No harsh murmurs. No reproducible chest wall tenderness. LUNGS: Nonlabored respirations on bilateral posterior auscultation. Symmetrical chest expansion. No wheezing or rales. ABDOMEN: Soft and nondistended. Nonspecific tenderness, not localized. No CVA tenderness appreciated. EXTREMITIES: No edema, cyanosis, or deformity. SKIN: Warm to touch without rash, pallor, or abrasion. LABORATORY VALUES: LABS: Sodium 138, potassium 5.9, chloride 108, bicarb less than 8, glucose 652, BUN and creatinine 52/2.47, calcium 11.1, alkaline phosphatase 174. WBC 8.1, H and H 10.7/36.1, platelets 383. VBG; 7.22/19.5/66/89. Lactic acid 1.0. 12-lead EKGs are reviewed. Initial 12-lead EKG suggested normal sinus rhythm with ST depressions in V1 and V2. Repeat 12-lead EKG was reviewed and reveals normal sinus rhythm, no ST elevation with improvement in ST changes in V1 and V2. IMAGING: One-view chest x-ray reveals no acute processes. ASSESSMENT: 1. Diabetic ketoacidosis of unspecified etiology. The patient will be admitted as inpatient status on color television console monitor and admitted to the [facility]. We will bolus second liter normal saline and continue maintenance IV fluids, IV regular insulin drip with hourly Accu-Cheks, and obtain serial BMP to assess for anion gap closure. Unspecified etiology of the patient's symptoms possibly may be secondary to myocardial infarction or infection or possibly noncompliance. We will maintain n.p.o. except for ice chips. 2. Elevated troponin, possibly secondary to whk-MC-[id number] myocardial infarction. We will trend serial cardiac biomarkers. We will administer weight-based Lovenox injection noting acute kidney injury. We will consult on-call Cardiology. We will obtain transthoracic echocardiogram. We will administer oral aspirin 325 mg x1. Check lipid profile and A1c. 3. Acute kidney injury on chronic kidney disease in an end-stage renal disease patient with known cadaveric renal transplant. Continue aggressive IV fluid hydration. Monitor renal function. Avoid nephrotoxins. Consult Nephrology to guide immunosuppressive therapy and monitor renal function. 4. Acute metabolic encephalopathy of unspecified etiology. Possibly secondary to diabetic ketoacidosis. Monitor mentation and maintain fall precautions. Continue volume expansion with IV fluid resuscitation. 5. Type 1 diabetes mellitus. Spouse reports the patient is compliant with home medications. Continue diabetic ketoacidosis treatment at this time. 6. History of recent hospitalization for sepsis secondary to pneumonia, viral infection, and pancytopenia. 7. Hypertension, benign. 8. Deep venous thrombosis prophylaxis: Therapeutic anticoagulation. 9. Check a.m. labs, 06/10/2019. DISPOSITION: Inpatient admission to [facility], and anticipate greater than 3 midnights stay. Job ID: [id number]
[2019-06-09 17:20] LABS: Anion Gap 20 mmol/L (10-20); BUN (Urea Nitrogen) 47 mg/dL (7.0-18.7); Calc. Creatinine Clearance 0 mL/min (70-130); Calcium 10.4 mg/dL (7.8-10.44); Carbon Dioxide 11 mmol/L (22-29); Cardiac Risk 19.9 (Less than 4.5); Chloride 118 mmol/L (98-107); Cholesterol 159 mg/dl (< 200 Desired); Estimated GFR-MDRD 29; Glucose 348 mg/dL (70-105); HDL Cholesterol 8 mg/dL (>60 Neg Risk); Potassium 4.2 mmol/L (3.5-5.1); Sodium 145 mmol/L (136-145); Triglycerides 454 mg/dL (Less than 150)
--- NOTE | 2019-06-09 18:13 | CON ---
DATE OF CONSULTATION: HISTORY OF PRESENT ILLNESS: Ms. Thompson is a 44-year-old female, who used to be followed by the service for her ESRD from diabetic nephropathy and was on maintenance hemodialysis. In the interim, the patient has had a cadaveric renal transplant back on May 08, 2017. She has been doing stable with regard to renal function. She got admitted today due to a DKA. The patient has been unwell for the last few days. She has been having low-grade fever. She has also been complaining of nausea and generalized malaise. When she went to the ER, she was noted to have a blood sugar of more than 600 mg% with significant metabolic acidosis. We are now being consulted for management of her renal transplantation as well as for the acute kidney injury. The history suggests that she may have a hemodynamically-mediated renal dysfunction related to her decreased p.o. intake as well as development of DKA. REVIEW OF SYSTEMS: Positive for confusion. Positive for low-grade fever. Positive for nausea, decreased appetite, decreased energy level. Positive for generalized malaise. No gross hematuria. No dysuria. No urinary frequency. No productive cough. No headache. No diplopia. Positive for confusion. No abdominal pain. No hematochezia. No melena. No hematemesis. MEDICATIONS: Include 1. Prograf 2.5 mg b.i.d. 2. CellCept 1000 mg p.o. b.i.d. 3. Prednisone 10 mg once a day. 4. Lovenox 60 mg subcu daily. 5. Currently on an insulin drip. 6. Magnesium oxide 400 mg b.i.d. p.r.n. 7. Clonidine 0.1 mg p.o. b.i.d. 8. Metoprolol tartrate 25 mg p.o. b.i.d. 9. Lantus 25 units subcu b.i.d. 10. Humalog sliding scale. 11. Ecotrin 81 mg tablet once a day. PAST MEDICAL HISTORY: 1. Status post ESRD from diabetic nephropathy. 2. Type 1 diabetes mellitus. 3. Hypertension. 4. Status post depression and hyperlipidemia. PAST SURGICAL HISTORY: Status post cadaveric renal transplant, status post AV fistula placement, status post cuffed dialysis catheter placement, status post eye surgery, status post bilateral tubal ligation. SOCIAL HISTORY: The patient lives in [place]. . Two children. She is a retired grocery employee. Education, high school. Used to smoke, but not smoking anymore. No alcohol. No IV drug abuse. Status post blood transfusion. Education, high school. FAMILY HISTORY: Positive family history of ESRD. ALLERGIES: NONE. TRAUMA: None. IMMUNIZATIONS: Up to date. HOSPITALIZATIONS: Please see past medical history. PHYSICAL EXAMINATION: VITAL SIGNS: Blood pressure 150/70, heart rate 70. GENERAL: The patient is awake, but somewhat confused, not in overt distress. SKIN: Adequate turgor. HEENT: She has pinkish conjunctivae. Anicteric sclerae. No neck mass. No carotid bruits. No JVD. CHEST: No deformities. LUNGS: Clear breath sounds. HEART: Normal sinus rhythm. No murmur. No gallops. No rubs. ABDOMEN: Globular, soft, nontender. No masses. EXTREMITIES: No edema. No deformities. Renal allograft is nontender. LABORATORY DATA: Laboratories of June 09, 2019, 12:44; white count 8.1, hemoglobin 10.7. Sodium 145, potassium is 4.2, chloride 118, carbon dioxide 11, BUN 47, creatinine 1.91, glucose 348, calcium is 10.4, and GFR 29 mL/minute. June 09, 2019, 12:44 p.m.; creatinine 2.47 with a potassium 5.9. September 15, 2018; BUN 11, creatinine 0.74. ASSESSMENT AND PLAN: 1. Acute kidney injury, consider hemodynamically-mediated renal dysfunction. The patient has diabetic ketoacidosis and volume depleted. Agree with volume repletion. The patient has received 2 L of normal saline, which improved the creatinine to a most recent value of 1.91 from a previous value of 2.47. Overall, agree with current management. Continue current immunosuppressive regimen. No changes to be made for the moment. 2. Diabetic ketoacidosis. The patient is currently on insulin drip. Blood sugar is slowly improving. 3. Confusion-most likely metabolic encephalopathy. There is no indication for any dialytic intervention with this patient. Agree with current management. Job ID: [id number]
[2019-06-09 18:35] LABS: Troponin I 1.742 ng/mL (< 0.028)
[2019-06-09] MEDS ORDERED: Ondansetron PF 4 MG/2 ML Vial IVP PRN (19:02)
[2019-06-09] MEDS ORDERED: Ondansetron ODT 4 MG TAB SL PRN (19:02)
[2019-06-09] MEDS: D5 1/2 NS w/20 mEq KCL 1,000 ML IV PRN ×2 (19:32→23:53)
[2019-06-09 20:20] LABS: Anion Gap 19 mmol/L (10-20); BUN (Urea Nitrogen) 44 mg/dL (7.0-18.7); Calc. Creatinine Clearance 0 mL/min (70-130); Calcium 10.1 mg/dL (7.8-10.44); Carbon Dioxide 10 mmol/L (22-29); Chloride 121 mmol/L (98-107); Estimated GFR-MDRD 32; Glucose 155 mg/dL (70-105); Sodium 146 mmol/L (136-145)
[2019-06-09 23:03] VITALS: BMI 30.2
[2019-06-09] MEDS: hydrALAZINE 20 MG/ML VIAL SLOW IVP PRN (23:27)
[2019-06-10 00:42] LABS: Anion Gap 15 mmol/L (10-20); BUN (Urea Nitrogen) 40 mg/dL (7.0-18.7); Calc. Creatinine Clearance 45 mL/min (70-130); Calcium 9.7 mg/dL (7.8-10.44); Carbon Dioxide 11 mmol/L (22-29); Chloride 120 mmol/L (98-107); Estimated GFR-MDRD 32; Glucose 284 mg/dL (70-105); Potassium 4.4 mmol/L (3.5-5.1); Sodium 142 mmol/L (136-145)
[2019-06-10] MEDS: D5 1/2 NS w/20 mEq KCL 1,000 ML IV PRN ×4 (03:46→16:37)
[2019-06-10] MEDS: Enoxaparin Sodium 60 MG/0.6 ML SYRINGE SC SCH (09:11)
[2019-06-10] MEDS: Aspirin 325 mg Enteric Coated Tablet PO SCH (09:12)
[2019-06-10] MEDS ORDERED: Metoprolol Tartrate 100 MG TAB PO SCH (09:15)
--- NOTE | 2019-06-10 09:40 | CON ---
DATE OF CONSULTATION: REASON FOR CONSULTATION: Elevated troponin. HISTORY OF PRESENT ILLNESS: Ms. Thompson is an unfortunate 44-year-old woman with history of end-stage renal disease, who received a kidney transplant 2 years ago. She recently presented with DKA. Sugars were markedly elevated. Her anion gap on arrival was too high to calculate. She denied chest pain or pressure. Her troponin was mildly elevated at 1.3. She has no previous history of underlying coronary artery disease. PAST MEDICAL HISTORY: 1. End-stage renal disease from diabetes mellitus. 2. Type 1 diabetes. 3. Hypertension. 4. Hyperlipidemia. 5. Depression. PAST SURGICAL HISTORY: Renal transplant, AV fistula placement, and BTL. SOCIAL HISTORY: She is currently with 2 children. No current tobacco or alcohol use. ALLERGIES: NONE. FAMILY HISTORY: Negative for CAD. REVIEW OF SYSTEMS: A 10-point review of systems is reviewed and as above, otherwise negative. PHYSICAL EXAMINATION: GENERAL: Patient is a pleasant 44-year-old woman who is in no acute distress. She does appear older than stated age. VITAL SIGNS: Blood pressure 180/80, pulse 98, and temperature afebrile. NEUROLOGIC: The patient is alert and oriented x3 with no focal neurologic deficits. HEENT: Sclerae without icterus. Mouth has moist mucous membranes with normal pallor. NECK: No JVD. Carotid upstroke brisk. No bruits bilaterally. LUNGS: Clear to auscultation with unlabored respirations. BACK: No scoliosis or kyphosis. CARDIAC: Regular rate and rhythm with normal S1 and S2. No S3 or S4 noted. No significant rubs, murmurs, thrills, or gallops noted throughout the precordium. PMI is not displaced. There is no parasternal heave. ABDOMEN: Soft, nontender, nondistended. No peritoneal signs present. No hepatosplenomegaly. No abnormal striae. EXTREMITIES: 2+ femoral and 2+ dorsalis pedis pulses. No cyanosis, clubbing, or edema. SKIN: No gross abnormalities. PERTINENT LABORATORY DATA: Hemoglobin 10.7, hematocrit 36.1, and platelet count 383. Peak troponin 1.7. IMPRESSION: 1. Elevated troponin. 2. Diabetic ketoacidosis. 3. Diabetes mellitus type 1. 4. Recent renal transplant. 5. Acute renal insufficiency with a creatinine of 2.4. 6. ? Compliance. RECOMMENDATIONS: Given that Ms. Thompson has had type 1 diabetes since age 15, she likely has underlying coronary artery disease. She may need disposition of her coronary anatomy prior to discharge. At this point, her kidney function remains an issue. Her initial creatinine was 2.5 and has decreased to 1.7, but her GFR remains low. At this point, we will continue IV fluids. Recommend checking echo. She is currently on Lovenox. Continue aspirin. We would continue beta-ivan therapy. Dr. Dl Cook is following from a renal standpoint. We will continue to follow with you. Job ID: [id number]
--- NOTE | 2019-06-10 09:54 | PRG ---
DATE OF SERVICE: 06/10/2019 SERVICE: Renal Medicine. SUBJECTIVE: Ms. Thompson is a 44-year-old female, who is status post cadaveric renal transplant and was admitted for DKA. She was also noted to have an acute kidney injury that probably was hemodynamically-mediated renal dysfunction. Empiric volume repletion has been done with improvement of the renal function. She is feeling a little better. She is less confused today. OBJECTIVE: VITAL SIGNS: Blood pressure is 181/83, heart rate 125, temperature 97.7, and pulse ox 100%. GENERAL: The patient is awake, comfortable, occasionally confused, not in distress. HEENT: She has pinkish conjunctivae. Anicteric sclerae. NECK: No neck mass. No carotid bruits. No JVD. CHEST: No deformities. LUNGS: Clear breath sounds. No wheezing. No crackles. HEART: Tachycardic. No murmur. No gallops. No rubs. ABDOMEN: Globular, soft, and nontender. No masses. EXTREMITIES: No edema. No deformities. MEDICATIONS: Medications of June 10, 2019, were reviewed. LABORATORY DATA: Laboratories of June 09, 2019; white count 8.1 and hemoglobin 10.7. June 10, 2019; glucose 178. June 10, 2019; sodium 142, potassium 4.4, chloride 120, carbon dioxide 11, BUN 40, creatinine 1.72, and calcium 9.7. ASSESSMENT AND PLAN: 1. Acute kidney akwihc-jamlpbqzcfyohmz-edenurnd dysfunction secondary to volume depletion from the DKA. Continue IV hydration with this patient. No indication for any dialytic intervention. 2. Status post cadaveric renal transplant-creatinine is slightly higher from baseline due to her prerenal azotemia. We will continue current immunosuppressive regimen. We will be checking a tacrolimus level in a.m. 3. Diabetic ketoacidosis. Currently now on D5 half-normal saline and insulin drip. 4. Overall agree with current management. Job ID: [id number] [facility]ITAL[facility]
[2019-06-10] MEDS: hydrALAZINE 20 MG/ML VIAL SLOW IVP PRN (10:30)
[2019-06-10] MEDS ORDERED: Morphine 4 MG/ML VIAL SLOW IVP SCH (11:00)
[2019-06-10 12:42] LABS: Anion Gap 13 mmol/L (10-20); BUN (Urea Nitrogen) 28 mg/dL (7.0-18.7); Calc. Creatinine Clearance 61 mL/min (70-130); Calcium 9.5 mg/dL (7.8-10.44); Chloride 124 mmol/L (98-107); Estimated GFR-MDRD 50; Glucose 167 mg/dL (70-105); Potassium 4.8 mmol/L (3.5-5.1); Sodium 141 mmol/L (136-145)
[2019-06-10 12:49] LABS: Carbon Dioxide 9 mmol/L (22-29)
[2019-06-10] MEDS ORDERED: predniSONE 5 MG TAB PO SCH (15:15)
[2019-06-10 15:55] LABS: Actual Bicarbonate (HCO3a) 13.2 mEq/L (22-28); Base Excess (BEa) -11.2 mEq/L (-2.0 to +3.0); Calcium, Ionized 1.36 mmol/L (1.12-1.30); Carboxyhemoglobin (COHb) 1.1 gm% (0.0-3.0); Hemoglobin (Hb) 9.3 g/dL (12.0-16.0); O2 Tension (PaO2) 71.7 mmHg (80.0-100.0); Potassium - ABG Lab 4.36 mmol/L (3.70-5.30); pH, Arterial 7.34 (7.35-7.45)
[2019-06-10 15:56] LABS: Puncture Site RRA
--- NOTE | 2019-06-10 18:07 | PDOC.HOSPP ---
- Subjective Encounter Date: 06/10/19 Encounter Time: 18:07 Subjective: cc: f/u for DKA, elevated troponin, FADI, encephalopathy subjective: patient seen and examined. spouse present. mumbling incoherently and disoriented. spouse notes this is not patient's baseline. nurse notes patient on IV regular insulin drip and gap improved. nurse also notes patient started menstrual cycle. - Objective Vital Signs & Weight: Vital Signs (12 hours) Temp Pulse BP Pulse Ox 06/10/19 16:07 97.7 F 06/10/19 11:19 98.6 F 06/10/19 10:30 127 H 182/95 H 06/10/19 08:00 98 06/10/19 07:16 97.7 F Weight Weight 139 lb 5.314 oz Most Recent Monitor Data Heart Rate from ECG 93 NIBP 155/100 NIBP BP-Mean 118 Respiration from ECG 37 SpO2 100 I&O: 06/09/19 06/10/19 06/11/19 06:59 06:59 06:59 Intake Total 2844 1090 Output Total 600 0 Balance 2244 1090 Result Diagrams: 06/11/19 10:46 06/11/19 10:46 Additional Labs: Accuchecks 06/10/19 06/10/19 06/10/19 17:17 16:13 15:14 POC Glucose 172 H 208 H 233 H 06/10/19 06/10/19 06/10/19 14:04 12:47 11:14 POC Glucose 221 H 176 H 149 H 06/10/19 06/10/19 06/10/19 10:08 09:01 08:07 POC Glucose 151 H 178 H 153 H 06/10/19 06/10/19 06/10/19 06:55 06:08 05:06 POC Glucose 177 H 153 H 155 H 06/10/19 06/10/19 06/10/19 04:13 03:21 02:07 POC Glucose 142 H 165 H 219 H 06/10/19 06/10/19 06/09/19 01:07 00:17 23:05 POC Glucose 263 H 262 H 258 H 06/09/19 06/09/19 06/09/19 22:03 21:07 20:17 POC Glucose 245 H 205 H 171 H 06/09/19 06/09/19 06/09/19 19:14 18:19 12:29 POC Glucose 173 H 196 H Greater than 550 H* Hospitalist ROS - Review of Systems Other: ROS: pertinent positive per SUBJECTIVE. remainder ROS negative. - Medication Medications: Active Medications Generic Name Dose Route Start Last Admin Trade Name Freq PRN Reason Stop Dose Admin Aspirin 325 mg 06/10/19 09:00 06/10/19 09:12 Ecotrin PO 325 mg DAILY ADELFO Administration Enoxaparin Sodium 60 mg 06/10/19 09:00 06/10/19 09:11 Lovenox SC 60 mg DAILY ADELFO Administration Hydralazine HCl 10 mg 06/09/19 23:14 06/10/19 10:30 Apresoline SLOW IVP 10 mg Q4H PRN Administration SBP Greater Than 180 Insulin Human Regular 100 101 mls @ 0 mls/hr 06/09/19 15:30 06/10/19 04:11 units/ Sodium Chloride IVPB 101 mls INF ADELFO Administration Protocol Titrate Potassium Chloride/Dextrose/Sod Cl 1,000 mls @ 250 mls/hr 06/09/19 15:30 16:37 D5 1/2 Ns W/20 Meq Kcl IV 1,000 mls .Q4H PRN Administration Step 4 of DKA Protocol Protocol Ondansetron HCl 4 mg 06/09/19 19:02 06/10/19 17:23 Zofran IVP 4 mg Q6H PRN Administration Nausea/Vomiting Sodium Chloride 10 ml 06/09/19 21:00 06/10/19 09:12 Flush - Normal Saline IVF 10 ml Q12HR ADELFO Administration Sodium Chloride 10 ml 06/09/19 19:02 06/09/19 19:33 Flush - Normal Saline IVF 10 ml PRN PRN Administration Saline Flush - Exam General Appearance: awake alert General - other findings: oriented to person and place. disoriented to year and month. Eye: PERRL, anicteric sclera ENT: normocephalic atraumatic, no oropharyngeal lesions, moist mucosa Neck: supple Heart: RRR, no murmur Respiratory: CTAB, no wheezes, no rales Gastrointestinal: soft, non-distended, normal bowel sounds Gastrointestinal - other findings: nonspecific tenderness Extremities: no cyanosis, no clubbing, no edema Skin: normal turgor, no lesions, no rashes Musculoskeletal: normal tone, normal strength Psychiatric: oriented to person, oriented to place Psychiatric - other findings: more awake today Hosp A/P - Plan ASSESSMENT AND PLAN: DKA, resolved. repeat serial BMP to ensure AG closure. unclear precipitant. will transition to basal and log insulin tonight after repeat BMP. check abdominal CT noting nonspecific abdominal pain on examination in setting of menorrhea and renal transplant. Acute encephalopathy, possibly metabolic etiology. monitor. Hyperchloremic NAGMA. possibly contributed by isotonic and hypotonic saline. discussed with nephrology who recommends ABG and advises against [id number] tablets at this time. FADI on CKD3 in renal trasplant patient, resolving. likely prerenal etiology. nephrology following. continue IVF. restart immune suppressants with prednisone , prograf, cellcept. Elevated troponin, possibly NSTEMI vs Type 2 NV. cardiology following. continue aspirin, weight based LMWH, follow TTE Hypertension, uncontrolled. restart home blood pressure medications. DVT px: LMWH check AM labs code status: full code Dispo: Continue IMCU monitoring tonight.
--- NOTE | 2019-06-10 18:15 | CT ---
CT ABDOMEN AND PELVIS WITHOUT CONTRAST: 06/10/19 COMPARISON: None. HISTORY: Abdominal pain. History of kidney transplant. Patient is in diabetic ketoacidosis. TECHNIQUE: Multiple contiguous axial images were obtained in a CT of the abdomen and pelvis without contrast. PO contrast was administered. Sagittal and coronal reformats were performed. IMPRESSION: The [place] kidneys are small and atrophic. There is a transplant kidney in the left lower quadrant of the abdomen/pelvis. There is no evidence of hydronephrosis of this transplant kidney and no calcific ations in the transplant kidney. The liver, gallbladder, adrenal glands, spleen, and pancreas are unremarkable. No free air, free fluid, or stranding changes are seen in the abdomen or pelvis. The large and small bowel are unremarkable. The appendix is normal. The reproductive organs are unre markable. No abdominal or pelvic lymphadenopathy are seen. Atherosclerotic calcifications are seen in the aorta. Atelectasis is seen in both lung bases. The abdominal wall soft tissues are unremarkable. IMPRESSION: 1. No evidence of acute intra-abdominal/pelvic abnormality. 2. Transplant kidney in the left lower quadrant of the abdomen/pelvis as above. 3. Atrophic [place] kidneys. POS: [facility]
[2019-06-10] MEDS ORDERED: Dextrose 50% Abboject 50 ML SYRINGE SLOW IVP PRN (18:41)
[2019-06-10] MEDS ORDERED: Dextrose 5% in Water 1,000 ML IV PRN (18:41)
[2019-06-10] MEDS: Metoprolol Tartrate 25 MG TAB PO SCH (20:59)
[2019-06-10] MEDS ORDERED: Tacrolimus 1 MG CAP PO SCH (21:00)
[2019-06-10] MEDS ORDERED: Insulin Glargine 20 UNITS in Pre-Filled Syringe 1 EACH SC SCH (21:00)
[2019-06-10] MEDS: Tacrolimus 0.5 MG CAP PO SCH (21:00)
[2019-06-10] MEDS: Tacrolimus 1 MG CAP PO SCH (21:00)
[2019-06-10] MEDS: Simvastatin 5 MG TAB PO SCH (21:01)
[2019-06-10] MEDS: Mycophenolate 250 MG CAP PO SCH (21:02)
[2019-06-10] MEDS: Sodium Chloride 0.45% 1,000 ML IV SCH (21:15)
[2019-06-11] MEDS: hydrALAZINE 20 MG/ML VIAL SLOW IVP PRN ×4 (00:19→21:43)
[2019-06-11] MEDS: HumaLOG 300 UNITS/3 ML VIAL SC PRN ×5 (03:45→21:43)
[2019-06-11] MEDS: Sodium Chloride 0.45% 1,000 ML IV SCH ×3 (08:20→20:38)
[2019-06-11] MEDS: NIFEdipine XL 30 MG TAB PO SCH (08:22)
[2019-06-11] MEDS: Tacrolimus 1 MG CAP PO SCH ×2 (08:22→21:42)
[2019-06-11] MEDS: Aspirin 325 mg Enteric Coated Tablet PO SCH (08:23)
[2019-06-11] MEDS: Metoprolol Tartrate 25 MG TAB PO SCH ×2 (08:23→21:41)
[2019-06-11] MEDS: Enoxaparin Sodium 60 MG/0.6 ML SYRINGE SC SCH (08:24)
[2019-06-11] MEDS: predniSONE 5 MG TAB PO SCH (08:24)
[2019-06-11] MEDS: Tacrolimus 0.5 MG CAP PO SCH ×2 (08:31→21:42)
[2019-06-11] MEDS ORDERED: predniSONE 5 MG TAB PO SCH (09:00)
[2019-06-11] MEDS: Mycophenolate 250 MG CAP PO SCH ×2 (09:39→21:41)
--- NOTE | 2019-06-11 09:56 | PRG ---
DATE OF SERVICE: SUBJECTIVE: Ms. Thompson is a 44-year-old female, status post renal transplant, admitted for DKA. She was also noted to be in acute kidney injury that we felt was a hemodynamically-mediated renal dysfunction. She received IV volume repletion as well as started insulin drip. Renal function is much improved with IV hydration. In addition, the DKA is much improved. Blood pressure is slightly noted to be elevated this morning -- this is before BP medications. She still has the persistent metabolic acidosis. ABG showed a pH of 7.35. We were holding bicarbonate, but this morning, I have decided to start her at least on some sodium bicarbonate tablets. The DKA is slightly improved. No other complaints. Her mentation is much improved also. She is less confused. In the interim, she had a CT scan of the abdomen and pelvis, which showed no acute intraabdominal abnormality. OBJECTIVE: VITAL SIGNS: Blood pressure 182/70, heart rate 99, respiratory rate 26, and pulse ox 100%. GENERAL: Noted to be awake, comfortable, coherent, not in distress. SKIN: Adequate turgor. HEENT: Pinkish conjunctivae. Anicteric sclerae. No neck mass. No carotid bruits. No JVD. CHEST: No deformities. LUNGS: Clear breath sounds. HEART: Normal sinus rhythm. No murmurs, gallops, or rubs. ABDOMEN: Globular, soft, nontender. No masses. EXTREMITIES: No edema. No deformities. MEDICATIONS: June 11, 2019, was reviewed. LABORATORY DATA: Laboratories of June 11, 2019: Glucose 333. June 10, 2019: Sodium 141, potassium 4.8, chloride 124, carbon dioxide 9, BUN 28, creatinine 1.17, calcium 9.5. ASSESSMENT AND PLAN: 1. Acute kidney injury -- hemodynamically-mediated renal dysfunction, which is much improved after IV hydration. 2. Metabolic acidosis. We will start sodium bicarbonate 650 mg one tablet t.i.d. 3. Diabetic ketoacidosis clinically much improved. Sugar is slowly improving. 4. Status post cadaveric renal transplant. Awaiting tacrolimus level. Continue current immunosuppressive regimen. 5. Agree with current management. Job ID: [id number]
[2019-06-11] MEDS ORDERED: Insulin Glargine 15 UNITS in Pre-Filled Syringe 1 EACH SC SCH (10:00)
--- NOTE | 2019-06-11 10:23 | PRG ---
DATE OF SERVICE: 06/11/2019 SUBJECTIVE: Ms. Thompson states she is sleepy, but not having any chest pain or pressure. She said her bottom is hurting her. OBJECTIVE: VITAL SIGNS: Her blood pressure 125/93. Pulse 80, sinus on the monitor. LUNGS: Clear. CARDIAC: Normal S1, normal S2. ABDOMEN: Soft and nontender. EXTREMITIES: There is no edema. ASSESSMENT: 1. Status post diabetic ketoacidosis, resolved. 2. Renal failure, markedly improved with creatinine now down to 1.17. 3. Hypertension. 4. Non-ST elevation myocardial infarction, probably type 2, demand ischemia. PLAN: 1. Reduce enoxaparin to 40 mg a day. 2. Continue with intravenous fluid, potentially reduce the rate tomorrow. 3. We will continue to follow with you. 4. We will likely do stress testing on Thursday. Job ID: [id number]
[2019-06-11 10:59] LABS: Hemoglobin 9.3 g/dL (12.0-16.0); Mean Corpuscular HGB CONC 31.2 g/dL (32.0-36.0); Mean Corpuscular Hemoglobin 22.6 pg (27.0-31.0); Mean Corpuscular Volume 72.4 fL (78.0-98.0); Mean Platelet Volume 9.5 fL (7.4-10.4); Platelet Count 298 thou/uL (130-400); White Blood Cell (WBC) Count 6.3 thou/uL (4.8-10.8)
[2019-06-11 11:18] LABS: Anion Gap 13 mmol/L (10-20); BUN (Urea Nitrogen) 21 mg/dL (7.0-18.7); Calc. Creatinine Clearance 74 mL/min (70-130); Calcium 8.9 mg/dL (7.8-10.44); Carbon Dioxide 12 mmol/L (22-29); Chloride 113 mmol/L (98-107); Estimated GFR-MDRD 62; Glucose 307 mg/dL (70-105); Potassium 4.1 mmol/L (3.5-5.1); Sodium 134 mmol/L (136-145)
[2019-06-11 11:25] LABS: #Eosinphils 0.1 thou/uL (0.0-0.7); #Lymphocytes 0.8 thou/uL (1.20-3.40); #Monocytes 0.4 thou/uL (0.11-0.59); %Basophils 0.1 % (0.0-1.0); %Lymphocytes 12.1 % (21.0-51.0); %Monocytes 5.8 % (0.0-10.0); Hypochromia SLIGHT = 6-15 cells (100X) (0-5/hpf); Large Platelets MODERATE; MDiff Complete? YES; Platelet Morphology Comment Appears Adequate
--- NOTE | 2019-06-11 12:03 | PDOC.HOSPP ---
- Subjective Encounter Date: 06/11/19 Encounter Time: 12:03 - Objective Vital Signs & Weight: Vital Signs (12 hours) Temp Pulse BP BP 06/11/19 10:22 97.6 F 06/11/19 09:27 97.5 F L 125/93 H 06/11/19 08:24 99 182/70 H 06/11/19 08:22 99 182/70 H 06/11/19 07:21 98.2 F 06/11/19 03:53 98.7 F 06/11/19 03:45 84 205/78 H 06/11/19 00:19 76 200/70 H Weight Weight 139 lb 5.314 oz Most Recent Monitor Data Heart Rate from ECG 97 NIBP 206/89 NIBP BP-Mean 128 Respiration from ECG 26 SpO2 100 I&O: 06/10/19 06/11/19 06/12/19 06:59 06:59 06:59 Intake Total 2844 4455 Output Total 600 1050 Balance 2244 3405 Result Diagrams: 06/11/19 10:46 06/11/19 10:46 Additional Labs: Accuchecks 06/11/19 06/11/19 06/11/19 09:36 07:15 03:12 POC Glucose 332 H 333 H 329 H 06/10/19 06/10/19 06/10/19 22:12 21:10 20:12 POC Glucose 204 H 177 H 162 H 06/10/19 06/10/19 06/10/19 18:16 17:17 16:13 POC Glucose 125 H 172 H 208 H 06/10/19 06/10/19 06/10/19 15:14 14:04 12:47 POC Glucose 233 H 221 H 176 H Hospitalist ROS - Medication Medications: Active Medications Generic Name Dose Route Start Last Admin Trade Name Freq PRN Reason Stop Dose Admin Aspirin 325 mg 06/10/19 09:00 06/11/19 08:23 Ecotrin PO 325 mg DAILY ADELFO Administration Hydralazine HCl 10 mg 06/09/19 23:14 06/11/19 08:24 Apresoline SLOW IVP 10 mg Q4H PRN Administration SBP Greater Than 180 Insulin Human Regular 100 101 mls @ 0 mls/hr 06/09/19 15:30 06/10/19 04:11 units/ Sodium Chloride IVPB 101 mls INF ADELFO Administration Protocol Titrate Sodium Chloride 1,000 mls @ 100 mls/hr 06/10/19 18:45 06/11/19 08:20 1/2 Normal Saline IV 1,000 mls .Q10H ADELFO Administration Insulin Human Lispro 0 units 06/10/19 18:41 06/11/19 08:20 Humalog SC 8 unit .MODERATE SLIDING SC PRN Administration Moderate Correctional Scale Metoprolol Tartrate 100 mg 06/10/19 21:00 06/11/19 08:23 Lopressor PO 100 mg BID ADELFO Administration Mycophenolate Mofetil 500 mg 06/10/19 21:00 06/11/19 09:39 Cellcept PO 500 mg BID ADELFO Administration Nifedipine 60 mg 06/11/19 09:00 06/11/19 08:22 Procardia Xl PO 60 mg DAILY ADELFO Administration Ondansetron HCl 4 mg 06/09/19 19:02 06/10/19 17:23 Zofran IVP 4 mg Q6H PRN Administration Nausea/Vomiting Prednisone 10 mg 06/11/19 08:00 06/11/19 08:24 Prednisone PO 10 mg QAM-WM ADELFO Administration Sertraline HCl 50 mg 06/10/19 21:00 06/10/19 21:00 Zoloft PO 50 mg HS ADELFO Administration Simvastatin 10 mg 06/10/19 21:00 06/10/19 21:01 Zocor PO 10 mg HS ADELFO Administration Sodium Chloride 10 ml 06/09/19 21:00 06/11/19 08:25 Flush - Normal Saline IVF 10 ml Q12HR ADELFO Administration Sodium Chloride 10 ml 06/09/19 19:02 06/09/19 19:33 Flush - Normal Saline IVF 10 ml PRN PRN Administration Saline Flush Tacrolimus 0.5 mg 06/10/19 21:00 06/11/19 08:31 Prograf PO 0.5 mg BID ADELFO Administration Tacrolimus 2 mg 06/10/19 21:00 06/11/19 08:22 Prograf PO 2 mg BID ADELFO Administration Hosp A/P - Plan PHYSICAL EXAMINATION: General Appearance: awake alert, more coherent. intermittently confused. General - other findings: oriented to person and place. disoriented to year and month. Eye: PERRL, anicteric sclera ENT: normocephalic atraumatic, no oropharyngeal lesions, moist mucosa Neck: supple Heart: RRR, no murmur Respiratory: CTAB, no wheezes, no rales Gastrointestinal: soft, non-distended, normal bowel sounds Gastrointestinal - other findings: nonspecific tenderness Extremities: no cyanosis, no clubbing, no edema Skin: normal turgor, no lesions, no rashes Musculoskeletal: normal tone, normal strength Psychiatric: oriented to person, oriented to place Psychiatric - other findings: more awake today Hosp A/P - Plan ASSESSMENT AND PLAN: DKA, resolved. off insulin drip. transitioned to Lantus and premeal Humalog ISS with uncontrolled accuchecks. Home insulin dosing unclear. Increase Lantus from 20 units nightly to 15 units BID. Continue 0.45% Normal saline. Abdominal CT unremarkable. Cardiology planning on possible stress test Thursday. Acute metabolic encephalopathy, improving. Monitor. apparently RN spoke with family and patient is at her baseline. Hyperchloremic NAGMA. improved. nephrology following and started patient on Nahc03 tablets. discontinue hypotonic saline tonight. FADI on CKD3 in renal trasplant patient, resolving. likely prerenal etiology. nephrology following. discontinue hypotonic saline tonight. continue immune suppressants with prednisone, prograf, cellcept. Elevated troponin, possibly NSTEMI vs Type 2 ID. cardiology following. reduce aspirin to 81 mg. TTE LVEF 60-65% noted plans for stress test thursday noting multiple CAD risk factors (HTN, T2DM, dyslipidemia) Dyslipidemia with hypertriglyceridemia. TG 454, HDL 8, LDL unable to calculate. start Lipitor 40 mg. Monitor triglycerides to assess for fenofibrate inititation. Hypertension, uncontrolled. continue Lopressor 100 mg BID and Procardia XL 60 mg. Start home Clonidine 0.1 mg tablets in morning, but BID for now. generalized weakness and deconditioning: PT and OT consult DVT px: LMWH reduced to DVT px dose check AM labs code status: full code Dispo: downgrade to acute telemetry
[2019-06-11] MEDS: Sodium Bicarbonate Tab 325 MG TAB PO SCH ×2 (12:34→16:56)
[2019-06-11] MEDS: Insulin Glargine 15 UNITS in Pre-Filled Syringe 1 EACH SC SCH (21:41)
[2019-06-11] MEDS: Simvastatin 5 MG TAB PO SCH (21:42)
[2019-06-12 05:25] LABS: Anion Gap 12 mmol/L (10-20); BUN (Urea Nitrogen) 18 mg/dL (7.0-18.7); Calc. Creatinine Clearance 90 mL/min (70-130); Calcium 9.1 mg/dL (7.8-10.44); Carbon Dioxide 15 mmol/L (22-29); Chloride 113 mmol/L (98-107); Estimated GFR-MDRD 78; Glucose 239 mg/dL (70-105); Potassium 4.2 mmol/L (3.5-5.1); Sodium 136 mmol/L (136-145)
[2019-06-12] MEDS: Acetaminophen 325 MG TAB PO PRN (05:44)
--- NOTE | 2019-06-12 10:40 | PDOC.HOSPP ---
- Subjective Encounter Date: 06/12/19 Encounter Time: 10:40 Subjective: cc: f/u for DKA, elevated troponin, FADI, encephalopathy subjective: patient seen at bedside. spouse present. patient reports she did not sleep well overnight as she was drenched in sweats and feeling chills. denies urinary symptoms. nurse notes patient had fever 100.6 overnight and was given tylenol. patient feels okay right now. feels more lucid and reports she cheated on her diet prior to arrival but has been taking her insulin at home but cannot remember the name. spouse shows a photograph of Novolin-N U-100 25 units in AM and 15 units in PM. noted plans for stress test tomorrow. - Objective Vital Signs & Weight: Vital Signs (12 hours) Temp Pulse Resp BP Pulse Ox 06/12/19 05:37 100.6 F H 06/12/19 03:23 100.1 F H 90 16 166/69 H 97 Weight Weight 139 lb 5.314 oz Most Recent Monitor Data Heart Rate from ECG 99 NIBP 184/55 NIBP BP-Mean 98 Respiration from ECG 20 SpO2 100 I&O: 06/11/19 06/12/19 06/13/19 06:59 06:59 06:59 Intake Total 4455 993 Output Total 1050 1200 Balance 3405 -207 Result Diagrams: 06/12/19 13:16 06/12/19 04:42 Additional Labs: Accuchecks 06/12/19 06/12/19 06/11/19 05:40 01:40 19:58 POC Glucose 252 H 226 H 300 H 06/11/19 06/11/19 16:04 12:07 POC Glucose 277 H 246 H Hospitalist ROS - Review of Systems Other: ROS: pertinent positives per SUBJECTIVE; remainder ROS negative - Medication Medications: Active Medications Generic Name Dose Route Start Last Admin Trade Name Freq PRN Reason Stop Dose Admin Acetaminophen 650 mg 06/12/19 05:32 06/12/19 05:44 Tylenol PO 650 mg Q6H PRN Administration pain/fever Hydralazine HCl 10 mg 06/09/19 23:14 06/11/19 21:43 Apresoline SLOW IVP 10 mg Q4H PRN Administration SBP Greater Than 180 Insulin Glargine 15 units/ 0.15 mls @ 0 mls/hr 06/11/19 21:00 12/28/19 21:41 Miscellaneous Medication SC 0.15 mls BID ADELFO Administration Insulin Human Lispro 0 units 06/10/19 18:41 06/11/19 21:43 Humalog SC 6 unit .MODERATE SLIDING SC PRN Administration Moderate Correctional Scale Metoprolol Tartrate 100 mg 06/10/19 21:00 06/11/19 21:41 Lopressor PO 100 mg BID ADELFO Administration Mycophenolate Mofetil 500 mg 06/10/19 21:00 06/11/19 21:41 Cellcept PO 500 mg BID ADELFO Administration Nifedipine 60 mg 06/11/19 09:00 06/11/19 08:22 Procardia Xl PO 60 mg DAILY ADELFO Administration Ondansetron HCl 4 mg 06/09/19 19:02 06/10/19 17:23 Zofran IVP 4 mg Q6H PRN Administration Nausea/Vomiting Prednisone 10 mg 06/11/19 08:00 06/11/19 08:24 Prednisone PO 10 mg QAM-WM ADELFO Administration Sertraline HCl 50 mg 06/10/19 21:00 06/11/19 21:42 Zoloft PO 50 mg HS ADELFO Administration Sodium Bicarbonate 650 mg 06/11/19 12:00 06/11/19 16:56 Bicarbonate, Sodium PO 650 mg TID-WM ADELFO Administration Sodium Chloride 10 ml 06/09/19 21:00 06/11/19 21:42 Flush - Normal Saline IVF 10 ml Q12HR ADELFO Administration Sodium Chloride 10 ml 06/09/19 19:02 06/09/19 19:33 Flush - Normal Saline IVF 10 ml PRN PRN Administration Saline Flush Tacrolimus 0.5 mg 06/10/19 21:00 06/11/19 21:42 Prograf PO 0.5 mg BID ADELFO Administration Tacrolimus 2 mg 06/10/19 21:00 06/11/19 21:42 Prograf PO 2 mg BID ADELFO Administration Hosp A/P - Plan PHYSICAL EXAMINATION: General Appearance: awake alert, more coherent. intermittently confused. General - other findings: oriented to person and place. disoriented to year and month. Eye: PERRL, anicteric sclera ENT: normocephalic atraumatic, no oropharyngeal lesions, moist mucosa Neck: supple Heart: RRR, no murmur Respiratory: CTAB, no wheezes, no rales Gastrointestinal: soft, non-distended, normal bowel sounds Gastrointestinal - other findings: nonspecific tenderness Extremities: no cyanosis, no clubbing, no edema Skin: normal turgor, no lesions, no rashes Musculoskeletal: normal tone, normal strength Psychiatric: oriented to person, oriented to place Psychiatric - other findings: more awake today Hosp A/P - Plan ASSESSMENT AND PLAN: DKA, resolved. off insulin drip. will increase Lantus to 20 units BID. Continue premeal Humalog ISS. Uncontrolled accuchecks, a1c 10%. unclear etiology-- ? noncompliance. ?RI noting elevated TnI and patient scheduled for stress test tomorrow. ??infectious etiology noting immunosuppressant use and fevers overnight; check CBC and blood cultures and start empiric rocephin 1 gram IV. Acute metabolic encephalopathy, improving. Monitor. Hyperchloremic NAGMA. improved. nephrology following and started patient on Nahc03 tablets. FADI on CKD3 in renal trasplant patient, resolving. likely prerenal etiology. nephrology following. continue immune suppressants with prednisone, prograf, cellcept. Elevated troponin, possibly NSTEMI vs Type 2 [place]. cardiology following. continue asa81, Lipitor 40 mg. TTE LVEF 60-65% noted plans for stress test thursday noting multiple CAD risk factors (HTN, T2DM, dyslipidemia) Dyslipidemia with hypertriglyceridemia. TG 454, HDL 8, LDL unable to calculate. started on Lipitor 40 mg. Monitor triglycerides to assess for fenofibrate inititation. Hypertension, uncontrolled. continue Lopressor 100 mg BID and Procardia XL 60 mg. Continue home Clonidine 0.1 mg tablets in morning, but BID for now. generalized weakness and deconditioning: PT and OT consult DVT px: LMWH code status: full code Dispo:discharge planning. await stress test tomorrow and monitor blood cultures.
[2019-06-12] MEDS: Insulin Glargine 15 UNITS in Pre-Filled Syringe 1 EACH SC SCH (10:43)
[2019-06-12] MEDS: Sodium Bicarbonate Tab 325 MG TAB PO SCH ×3 (10:44→18:19)
[2019-06-12] MEDS: Mycophenolate 250 MG CAP PO SCH ×2 (10:44→20:43)
[2019-06-12] MEDS: Enoxaparin Sodium 60 MG/0.6 ML SYRINGE SC SCH (10:44)
[2019-06-12] MEDS: Tacrolimus 1 MG CAP PO SCH ×2 (10:45→20:42)
[2019-06-12] MEDS: NIFEdipine XL 30 MG TAB PO SCH (10:45)
[2019-06-12] MEDS: Metoprolol Tartrate 25 MG TAB PO SCH ×2 (10:46→20:41)
[2019-06-12] MEDS: predniSONE 5 MG TAB PO SCH (10:46)
[2019-06-12] MEDS: Tacrolimus 0.5 MG CAP PO SCH ×2 (10:46→20:42)
[2019-06-12] MEDS: Aspirin 81 mg Enteric Coated Tablet PO SCH (10:46)
[2019-06-12] MEDS: cloNIDine 0.1 MG TAB PO SCH ×2 (10:46→20:41)
--- NOTE | 2019-06-12 12:23 | PRG ---
DATE OF SERVICE: 06/12/2019 SERVICE: Renal Medicine. SUBJECTIVE: Ms. Thompson is a 44-year-old female, who is status post cadaveric renal transplant, admitted for DKA. DKA is much improved. She was also seen because of her acute kidney injury on top of her underlying renal transplantation. She had a hemodynamically-mediated renal dysfunction. It is now much improved with IV hydration. No other complaints except for low-grade fever. OBJECTIVE: VITAL SIGNS: Blood pressure 182/70 before BP medications, heart rate 90, respiratory rate 16, pulse ox 97% on room air, and temperature 100.6. GENERAL: Awake, alert, comfortable, not in distress. SKIN: Adequate turgor. HEENT: Pinkish conjunctivae. Anicteric sclerae. NECK: No neck mass. No carotid bruits. No JVD. CHEST: No deformities. LUNGS: Clear breath sounds. HEART: Normal sinus rhythm. No murmur. No gallops. No rubs. ABDOMEN: Globular, soft, and nontender. No masses. EXTREMITIES: No edema. No deformities. MEDICATIONS: Medications of June 12, 2019, was reviewed. LABORATORY DATA: Laboratories of June 12, 2019; sodium 136, potassium 4.2, chloride 113, carbon dioxide 15, BUN 18, creatinine 0.8, GFR 78 mL/minute, and calcium 9.1. White count 6.3, hemoglobin 9.3. ASSESSMENT AND PLAN: 1. Status post cadaveric renal transplant, stable. We will continue current immunosuppressive regimen. She had a superimposed hemodynamically-mediated renal dysfunction, which is much improved after volume repletion. She will continue her current immunosuppressive regimen. We are awaiting for the tacrolimus level. 2. Mildly elevated troponin I - plan is for cardiac stress test. Cardiology is following. 3. Diabetic ketoacidosis, resolved. Agree with current management. Job ID: [id number]
[2019-06-12] MEDS: HumaLOG 300 UNITS/3 ML VIAL SC PRN ×2 (12:47→18:19)
[2019-06-12 13:26] LABS: #Eosinphils 0.1 thou/uL (0.0-0.7); #Lymphocytes 0.5 thou/uL (1.20-3.40); #Monocytes 0.3 thou/uL (0.11-0.59); #Neutrophils 5.6 thou/uL (1.40-6.50); %Eosinophils 2.1 % (0.0-10.0); %Monocytes 4.8 % (0.0-10.0); %Neutrophils 85.1 % (42.0-75.0); Mean Corpuscular HGB CONC 31.4 g/dL (32.0-36.0); Mean Corpuscular Hemoglobin 22.5 pg (27.0-31.0); Mean Corpuscular Volume 71.8 fL (78.0-98.0); Mean Platelet Volume 9.2 fL (7.4-10.4); Platelet Count 251 thou/uL (130-400); Red Blood Cell (RBC) Count 3.98 mill/uL (4.20-5.40); White Blood Cell (WBC) Count 6.6 thou/uL (4.8-10.8)
[2019-06-12] MEDS: cefTRIAXone\\ROCEPHIN 1 GM in Sodium Chloride 0.9% 100 ML IVPB SCH (13:48)
[2019-06-12] MEDS: Atorvastatin Calcium 40 MG TAB PO SCH (20:41)
[2019-06-12] MEDS: Insulin Glargine 20 UNITS in Pre-Filled Syringe 1 EACH SC SCH (20:47)
[2019-06-13 05:18] LABS: Anion Gap 12 mmol/L (10-20); BUN (Urea Nitrogen) 16 mg/dL (7.0-18.7); Calc. Creatinine Clearance 99 mL/min (70-130); Calcium 8.9 mg/dL (7.8-10.44); Carbon Dioxide 16 mmol/L (22-29); Chloride 112 mmol/L (98-107); Estimated GFR-MDRD 78; Glucose 123 mg/dL (70-105); Potassium 4.2 mmol/L (3.5-5.1); Sodium 136 mmol/L (136-145)
[2019-06-13] MEDS: Acetaminophen 325 MG TAB PO PRN (08:08)
--- NOTE | 2019-06-13 08:51 | PRG ---
DATE OF SERVICE: 06/13/2019 SERVICE: Renal Medicine. SUBJECTIVE: Ms. Thompson is a 44-year-old female, status post cadaveric renal transplant, admitted for DKA. DKA is much improved with IV insulin. In addition, she also had a superimposed acute kidney injury that was hemodynamically mediated. Empiric volume repletion was given with improvement of the renal function. Due to the mildly elevated troponin I, a cardiac consult was done. She is now scheduled for a cardiac stress test. In addition, she has a low-grade fever and is being empirically treated with IV antibiotics. No other complaints today. No chest pain or shortness of breath. OBJECTIVE: VITAL SIGNS: Blood pressure is 141/56, heart rate 90, respiratory rate 16, temperature 101.1, and pulse ox 98%. GENERAL: The patient is awake, alert, comfortable, not in overt distress. SKIN: Adequate turgor. HEENT: Pinkish conjunctivae. Anicteric sclerae. NECK: No neck mass. No carotid bruits. No JVD. CHEST: No deformities. LUNGS: Clear breath sounds. HEART: Normal sinus rhythm. No murmur. No gallops. No rubs. ABDOMEN: Globular, soft, nontender. No masses. EXTREMITIES: No edema. No deformities. MEDICATIONS: Medications of June 13, 2019, reviewed. LABORATORY DATA: Laboratories of June 12, 2019; white count 6.6, hemoglobin 9, and platelet count 251,000. Sodium 136, potassium 4.2, chloride 112, carbon dioxide 16, BUN 16, creatinine 0.8, and calcium 8.9. Prograf level pending. ASSESSMENT AND PLAN: 1. Status post cadaveric renal transplant, continuing current immunosuppressive regimen. No changes to be made. Prograf level is pending. 2. Acute kidney injury - Superimposed hemodynamically mediated renal dysfunction. Much improved renal function with IV hydration and control of her diabetes. 3. Status post diabetic ketoacidosis, much improved. 4. Metabolic acidosis - Currently on sodium bicarbonate 650 mg tablet t.i.d. 5. Mildly elevated troponin I - For a cardiac stress test. 6. Low-grade fever, on empiric IV antibiotics. Job ID: [id number]
--- NOTE | 2019-06-13 11:31 | NM ---
EXAM: Nuclear medicine cardiac perfusion examination with ejection fraction HISTORY: Chest pain; end-stage renal disease with history of myocardial infarction. TECHNIQUE: Rest images: 11.0 mCi technetium 99m sestamibi Stress images: 28.9 mCi of technetium 9M sestamibi; Adenosine COMPARISON: None FINDINGS: Tomographic images: No fixed or reversible perfusion defects. Gated images: Normal wall motion and ejection fraction of greater than 70%. EDV: 55 mL LHR: 0.3 TID: 1.0 IMPRESSION: No evidence of ischemia
[2019-06-13] MEDS: Metoprolol Tartrate 25 MG TAB PO SCH ×2 (11:36→20:16)
[2019-06-13] MEDS: Tacrolimus 0.5 MG CAP PO SCH ×2 (11:37→20:16)
[2019-06-13] MEDS: Tacrolimus 1 MG CAP PO SCH ×2 (11:37→20:16)
[2019-06-13] MEDS: Mycophenolate 250 MG CAP PO SCH ×2 (11:38→20:15)
[2019-06-13] MEDS: Aspirin 81 mg Enteric Coated Tablet PO SCH (11:38)
[2019-06-13] MEDS: predniSONE 5 MG TAB PO SCH (11:38)
[2019-06-13] MEDS: NIFEdipine XL 30 MG TAB PO SCH (11:38)
[2019-06-13] MEDS: Sodium Bicarbonate Tab 325 MG TAB PO SCH ×3 (11:38→17:05)
[2019-06-13] MEDS: Enoxaparin Sodium 60 MG/0.6 ML SYRINGE SC SCH (11:39)
[2019-06-13] MEDS: cloNIDine 0.1 MG TAB PO SCH ×2 (11:39→20:15)
[2019-06-13] MEDS: Insulin Glargine 20 UNITS in Pre-Filled Syringe 1 EACH SC SCH ×2 (11:42→21:52)
[2019-06-13] MEDS: cefTRIAXone\\ROCEPHIN 1 GM in Sodium Chloride 0.9% 100 ML IVPB SCH (14:36)
[2019-06-13 15:12] LABS: RBC/HPF Greater than 50 HPF (0-3)
[2019-06-13 15:22] LABS: Bacteria/HPF 1+ HPF (None Seen); WBC/HPF 21-50 HPF (0-3)
[2019-06-13] MEDS ORDERED: ADENOSINE 60 MG/20 ML VIAL ONE (16:26)
--- NOTE | 2019-06-13 16:29 | PDOC.HOSPP ---
- Subjective Encounter Date: 06/13/19 Encounter Time: 16:29 Subjective: cc: f/u for DKA, elevated troponin, FADI, encephalopathy subjective: patient seen at bedside this afternoon. spouse present. patient denies acute complaints. had stress test done this morning. feels well and more lucid. notes some temperatures this morning associated with some cough but improved with Tylenol. nursing staff notes no acute overnight events. - Objective Vital Signs & Weight: Vital Signs (12 hours) Temp Pulse Pulse Pulse Resp BP BP 06/13/19 11:58 96 88 128/60 143/65 H 06/13/19 11:22 99.2 F 90 16 06/13/19 08:05 101.1 F H 90 16 BP Pulse Ox Pulse Ox Pulse Ox 06/13/19 11:58 100 100 06/13/19 11:22 152/67 H 100 06/13/19 08:05 141/56 H 98 Weight Weight 154 lb 4.8 oz Most Recent Monitor Data Heart Rate from ECG 99 NIBP 184/55 NIBP BP-Mean 98 Respiration from ECG 20 SpO2 100 I&O: 06/12/19 06/13/19 06/14/19 06:59 06:59 06:59 Intake Total 993 600 Output Total 1200 Balance -207 600 Result Diagrams: 06/12/19 13:16 06/13/19 04:27 Additional Labs: Accuchecks 06/13/19 06/13/19 06/12/19 11:45 06:07 20:12 POC Glucose 156 H 118 H 267 H 06/12/19 17:27 POC Glucose 164 H Hospitalist ROS - Review of Systems Other: ROS: pertinent positive per subjective; remainder ROS negative. - Medication Medications: Active Medications Generic Name Dose Route Start Last Admin Trade Name Freq PRN Reason Stop Dose Admin Acetaminophen 650 mg 06/12/19 05:32 06/13/19 08:08 Tylenol PO 650 mg Q6H PRN Administration pain/fever Aspirin 81 mg 06/12/19 09:00 06/13/19 11:38 Ecotrin PO 81 mg DAILY ADELFO Administration Atorvastatin Calcium 40 mg 06/12/19 21:00 06/12/19 20:41 Lipitor PO 40 mg HS ADELFO Administration Clonidine 0.1 mg 06/12/19 09:00 06/13/19 11:39 Catapres PO 0.1 mg BID ADELFO Administration Enoxaparin Sodium 40 mg 06/12/19 09:00 06/13/19 11:39 Lovenox SC 40 mg DAILY ADELFO Administration Hydralazine HCl 10 mg 06/09/19 23:14 06/11/19 21:43 Apresoline SLOW IVP 10 mg Q4H PRN Administration SBP Greater Than 180 Ceftriaxone Sodium 1 gm/ 100 mls @ 200 mls/hr 06/12/19 14:00 06/13/19 14:36 Sodium Chloride IVPB 100 mls Q24HR ADELFO Administration Insulin Glargine 20 units/ 0.2 mls @ 0 mls/hr 06/12/19 21:00 06/13/19 11:42 Miscellaneous Medication SC 0.2 mls BID ADELFO Administration Insulin Human Lispro 0 units 06/10/19 18:41 06/12/19 18:19 Humalog SC 2 unit .MODERATE SLIDING SC PRN Administration Moderate Correctional Scale Metoprolol Tartrate 100 mg 06/10/19 21:00 06/13/19 11:36 Lopressor PO 100 mg BID ADELFO Administration Mycophenolate Mofetil 500 mg 06/10/19 21:00 06/13/19 11:38 Cellcept PO 500 mg BID ADELFO Administration Nifedipine 60 mg 06/11/19 09:00 06/13/19 11:38 Procardia Xl PO 60 mg DAILY ADELFO Administration Ondansetron HCl 4 mg 06/09/19 19:02 06/10/19 17:23 Zofran IVP 4 mg Q6H PRN Administration Nausea/Vomiting Prednisone 10 mg 06/11/19 08:00 06/13/19 11:38 Prednisone PO 10 mg QAM-WM ADELFO Administration Sertraline HCl 50 mg 06/10/19 21:00 06/12/19 20:42 Zoloft PO 50 mg HS ADELFO Administration Sodium Bicarbonate 650 mg 06/11/19 12:00 06/13/19 11:49 Bicarbonate, Sodium PO Not Given TID-WM ADELFO Sodium Chloride 10 ml 06/09/19 21:00 06/13/19 11:40 Flush - Normal Saline IVF 10 ml Q12HR ADELFO Administration Sodium Chloride 10 ml 06/09/19 19:02 06/09/19 19:33 Flush - Normal Saline IVF 10 ml PRN PRN Administration Saline Flush Tacrolimus 0.5 mg 06/10/19 21:00 06/13/19 11:37 Prograf PO 0.5 mg BID ADELFO Administration Tacrolimus 2 mg 06/10/19 21:00 06/13/19 11:37 Prograf PO 2 mg BID ADELFO Administration Hosp A/P - Plan PHYSICAL EXAMINATION: General Appearance: awake alert, more coherent. no longer confused. General - other findings: oriented to person and place. disoriented to year and month. Eye: PERRL, anicteric sclera ENT: normocephalic atraumatic, no oropharyngeal lesions, moist mucosa Neck: supple Heart: RRR, no murmur Respiratory: CTAB, no wheezes, no rales Gastrointestinal: soft, non-distended, normal bowel sounds Gastrointestinal - other findings: nonspecific tenderness Extremities: no cyanosis, no clubbing, no edema Skin: normal turgor, no lesions, no rashes Musculoskeletal: normal tone, normal strength Psychiatric: oriented to person, oriented to place Psychiatric - other findings: more awake today MICROBIOLOGY: blood cultures NGTD Hosp A/P - Plan ASSESSMENT AND PLAN: DKA, resolved. off insulin drip. continue Lantus 20 units BID. Continue premeal Humalog ISS. Uncontrolled accuchecks, a1c 10%. unclear etiology-- ?noncompliance. ??infectious etiology noting immunosuppressant use and recurrent fevers today Fevers of unclear etiology in immunocompromised patient. recurrent fevers this morning. consult ID. continue empiric IV rocephin. 06/12/[address] abdomen/pelvis was unremarkable. repeat UA. monitor respiratory symptoms. Elevated troponin suspect due to Type 2 [place]. cardiology following and patient underwent Lexiscan stress today without ischemia. ?discontinue asa81. TTE LVEF 60-65% Acute metabolic encephalopathy, resolved. Monitor. Hyperchloremic NAGMA. improved. nephrology following and started patient on Nahc03 tablets. FADI on CKD3 in renal transplant patient, resolved. likely prerenal etiology. nephrology following. continue immune suppressants with prednisone, prograf, cellcept. Dyslipidemia with hypertriglyceridemia. TG 454, HDL 8, LDL unable to calculate. started on Lipitor 40 mg. Monitor triglycerides to assess for fenofibrate inititation. Hypertension, improved. continue Lopressor 100 mg BID and Procardia XL 60 mg. Continue home Clonidine 0.1 mg tablets in morning, but BID for now. generalized weakness and deconditioning: continue PT and OT DVT px: LMWH code status: full code Dispo:discharge planning.
[2019-06-13] MEDS: HumaLOG 300 UNITS/3 ML VIAL SC PRN ×2 (17:05→21:52)
[2019-06-13] MEDS: Atorvastatin Calcium 40 MG TAB PO SCH (20:16)
--- NOTE | 2019-06-13 22:31 | CON ---
DATE OF CONSULTATION: 06/13/2019 REASON FOR CONSULTATION: Fever in a transplant patient 44-year-old. HISTORY OF PRESENT ILLNESS: Patient, whom I had seen in the past. The last visit I saw her was in September of this year when she presented with a history of renal transplant about 7 months before this last visit. She also has a history of type 1 diabetes, hypertension, and hyperlipidemia. She developed fever, chills and body aches and was diagnosed with influenza A. She did well with oseltamivir and now she presents with weakness and fever, some nausea, vomiting, which developed on June 07. No headaches. No change in visual symptoms, sore throat, odynophagia, or dysphagia. No back pain. Usual cough, but not more than usual. Some posterior nasal drip. No abdominal pain. No genitourinary symptoms. No diarrhea or bleeding. No joint symptoms. PAST MEDICAL HISTORY: Type 1 diabetes, renal transplant, hyperlipidemia, hypertension, dialysis fistula placement, tubal ligation. SOCIAL HISTORY: Never smoker, . Drinks occasionally. ALLERGIES: NORVASC, NSAIDS, PHENYLEPHRINE AND PSEUDOEPHEDRINE. FAMILY HISTORY: Noncontributory. CURRENT MEDICATIONS: P.r.n. medications; 1. Lipitor. 2. Rocephin. 3. Catapres. 4. Lovenox. 5. Glucagon. 6. Insulin. 7. Magnesium. 8. Metoprolol. 9. Procardia. 10. Zofran. 11. Potassium. 12. Prednisone 10 mg. 13. Zoloft. 14. Tacrolimus. PHYSICAL EXAMINATION: VITAL SIGNS: She actually was afebrile first few days and now she started having temperature spikes up to 101.1. Other vital signs are with mild elevation of systolic blood pressure. O2 saturations were in the 100s on room air. SKIN: No areas of skin breakdown. The patient has a peripheral IV access and is voiding in the toilet. No lymphadenopathy. HEENT: Ocular movements conjugate. Somewhat pale conjunctivae. Pupils are equal. NECK: Supple. No jugular venous distention. LUNGS: With symmetric clear breath sounds. HEART: S1 and S2. Regular rate without murmurs. No S3 or S4. ABDOMEN: Soft, not distended or tender. No ascites. No bladder distention. EXTREMITIES: No joint inflammatory activity. No edema. Pulses 1+ in dorsalis pedis. Moves extremities equally. Cognitive function appears to be intact. LABORATORY DATA: White cell count is 8.1, now 6.6, hemoglobin 10.7, platelets 383 and 88% neutrophils. Sodium 138, creatinine 2.47, now is down to 0.8 after volume repletion. Troponin was 1.6 and is up to 1.7 at this time. Albumin 3.9, alkaline phosphatase 174, transaminases normal. Bilirubin normal. Urinalysis with 21 to 50 wbc's. ASSESSMENT: 1. Renal transplant. 2. Type 1 diabetes. 3. General malaise, fever with recrudescence of fever after admission while on antimicrobial therapy. 4. Improvement of renal function with IV fluids. 5. Immunosuppressed state. DISCUSSION: Differential diagnosis includes viral infection, community-acquired versus a recrudescence of endogenous viral infections including CMV and EBV, acquired bacterial infections such as Bartonella species or fungal infections acquired in the community such as histoplasma capsulatum and cryptococcus species. Drug fever associated with tacrolimus has been described as well, but that is a diagnosis of exclusion. At this point, we will submit assays for the above and then follow results. Evidently, if she defervesced, then follow up in the clinic since some of the assays will take a quite a few days. Rejection as a cause of fever is not likely in view of the normalization of renal function. Job ID: [id number] [facility]
[2019-06-14 05:29] LABS: #Eosinphils 0.2 thou/uL (0.0-0.7); #Lymphocytes 0.9 thou/uL (1.20-3.40); #Monocytes 0.5 thou/uL (0.11-0.59); #Neutrophils 4.6 thou/uL (1.40-6.50); %Basophils 0.2 % (0.0-1.0); %Eosinophils 3.4 % (0.0-10.0); %Monocytes 7.9 % (0.0-10.0); %Neutrophils 73.4 % (42.0-75.0); Hemoglobin 8.1 g/dL (12.0-16.0); Mean Corpuscular HGB CONC 29.7 g/dL (32.0-36.0); Mean Corpuscular Hemoglobin 22.2 pg (27.0-31.0); Mean Corpuscular Volume 74.8 fL (78.0-98.0); Platelet Count 303 thou/uL (130-400); RBC Distribution Width 17.4 % (11.5-14.5); Red Blood Cell (RBC) Count 3.64 mill/uL (4.20-5.40); White Blood Cell (WBC) Count 6.3 thou/uL (4.8-10.8)
[2019-06-14 05:46] LABS: Anion Gap 13 mmol/L (10-20); BUN (Urea Nitrogen) 15 mg/dL (7.0-18.7); Calc. Creatinine Clearance 110 mL/min (70-130); Carbon Dioxide 18 mmol/L (22-29); Chloride 114 mmol/L (98-107); Estimated GFR-MDRD 89; Glucose 98 mg/dL (70-105); Potassium 3.7 mmol/L (3.5-5.1); Sodium 141 mmol/L (136-145)
[2019-06-14] MEDS: Sodium Bicarbonate Tab 325 MG TAB PO SCH ×3 (08:26→17:08)
[2019-06-14] MEDS: Aspirin 81 mg Enteric Coated Tablet PO SCH (08:26)
[2019-06-14] MEDS: cloNIDine 0.1 MG TAB PO SCH ×2 (08:27→21:09)
[2019-06-14] MEDS: Tacrolimus 1 MG CAP PO SCH ×2 (08:27→21:11)
[2019-06-14] MEDS: Tacrolimus 0.5 MG CAP PO SCH ×2 (08:27→21:11)
[2019-06-14] MEDS: predniSONE 5 MG TAB PO SCH (08:27)
[2019-06-14] MEDS: Metoprolol Tartrate 25 MG TAB PO SCH ×2 (08:27→21:09)
[2019-06-14] MEDS: NIFEdipine XL 30 MG TAB PO SCH (08:28)
[2019-06-14] MEDS: Mycophenolate 250 MG CAP PO SCH ×2 (08:28→21:09)
[2019-06-14] MEDS: Insulin Glargine 20 UNITS in Pre-Filled Syringe 1 EACH SC SCH ×2 (08:31→21:14)
[2019-06-14] MEDS: Enoxaparin Sodium 40 MG/0.4 ML SYRINGE SC SCH (08:40)
--- NOTE | 2019-06-14 09:01 | PRG ---
DATE OF SERVICE: 06/14/2019 SUBJECTIVE: Ms. Thompson is a 44-year-old female with known history of cadaveric renal transplant, admitted for DKA. She was also seen by the Renal Service for acute kidney injury that was hemodynamically-mediated renal dysfunction. She also had developed fever with this hospitalization. Empiric antibiotics have been given. Fever is improved. ID has followed up this patient, has made recommendations. This morning, she is feeling better. She also has had cardiac stress test done on June 13, 2019, which showed no evidence of ischemia. OBJECTIVE: VITAL SIGNS: Blood pressure is noted at 198/73-before BP medications, prior to that was 150/64 with a heart rate of 86, respiratory rate 16, temperature 98.9, pulse ox 100%. GENERAL: Noted to be awake, alert, comfortable, not in overt distress. SKIN: Adequate turgor. HEENT: Has pinkish conjunctivae. Anicteric sclerae. NECK: No neck mass. No carotid bruits. No JVD. CHEST: No deformities. LUNGS: Clear breath sounds. HEART: Normal sinus rhythm. No murmur. No gallops. No rubs. ABDOMEN: Globular, soft, nontender, no masses. EXTREMITIES: No edema. No deformities. MEDICATIONS: Medications of June 14, 2019, was reviewed. LABORATORY DATA: Laboratories of June 14, 2019, sodium 141, potassium 3.7, chloride 114, carbon dioxide 18, BUN 15, creatinine 0.71, glucose 98, calcium 9, white count 6.1, hemoglobin 8.1. Cardiac stress test, no active ischemia. ASSESSMENT AND PLAN: 1. Acute kidney injury-superimposed hemodynamically-mediated renal dysfunction. Much improved with volume repletion and with resolution of her diabetic ketoacidosis. 2. Status post cadaveric renal transplant. Continue current immunosuppressive regimen. Still awaiting results of tacrolimus. 3. Fever-improved. On empiric IV antibiotics. She may have possibly underlying urinary tract infection. ID is following. 4. Borderline anemia, continue to observe. If needed, consider GI workup as an outpatient. 5. Agree with current management. Job ID: [id number]
[2019-06-14] MEDS: HumaLOG 300 UNITS/3 ML VIAL SC PRN ×3 (11:34→21:14)
--- NOTE | 2019-06-14 12:41 | PDOC.EVN ---
Event Note - Event Note Event Note: Discharge [id number]
--- NOTE | 2019-06-14 12:55 | PDOC.EVN ---
Event Note - Event Note Event Note: [id number] progress
--- NOTE | 2019-06-14 13:20 | PRG ---
DATE OF SERVICE: 06/14/2019 SUBJECTIVE: The patient overall is feeling better, but she is still weak. The patient was admitted for DKA and is a renal transplant patient. Acute kidney injury on chronic kidney disease improved. Encephalopathy, which is improving. Also, the patient has been having fever. ID is following. The patient is started empirically on IV ceftriaxone. OBJECTIVE: GENERAL: The patient is awake and alert. VITAL SIGNS: Blood pressure is 190/80, pulse of 88, respiratory rate 24, and temperature 98.8. HEAD AND NECK: Normocephalic and atraumatic. NECK: Supple. CHEST: Fair bilateral air entry. HEART: S1 and S2, regular. ABDOMEN: Soft, nontender. Bowel sounds present. NEUROLOGIC: Awake, alert, and oriented. Moving extremities. PSYCHIATRIC: Unable to assess. EXTREMITIES: No clubbing or cyanosis. LABORATORY DATA: Today, sodium 141, potassium 3.7, BUN 15, creatinine 0.7, and glucose 98. CBC; WBC 6.3, hemoglobin 8.1, and platelets 303. ASSESSMENT: 1. Diabetic ketoacidosis, resolved; acute kidney injury on chronic kidney disease, improved. 2. Anemia. Hemoglobin is 8.1, continue to monitor for now, recheck CBC in a.m. If continues to drop, we will consider GI consultation. 3. Fever. ID is following. The patient started empirically on antibiotic. Job ID: [id number]
[2019-06-14] MEDS: cefTRIAXone\\ROCEPHIN 1 GM in Sodium Chloride 0.9% 100 ML IVPB SCH (14:13)
[2019-06-14] MEDS: Atorvastatin Calcium 40 MG TAB PO SCH (21:09)
[2019-06-15 05:32] LABS: #Eosinphils 0.2 thou/uL (0.0-0.7); #Lymphocytes 0.9 thou/uL (1.20-3.40); #Monocytes 0.5 thou/uL (0.11-0.59); #Neutrophils 3.4 thou/uL (1.40-6.50); %Basophils 0.4 % (0.0-1.0); %Eosinophils 3.9 % (0.0-10.0); %Monocytes 8.9 % (0.0-10.0); %Neutrophils 68.7 % (42.0-75.0); Hemoglobin 7.5 g/dL (12.0-16.0); Mean Corpuscular HGB CONC 31.2 g/dL (32.0-36.0); Mean Corpuscular Hemoglobin 23.3 pg (27.0-31.0); Mean Corpuscular Volume 74.6 fL (78.0-98.0); Mean Platelet Volume 9.1 fL (7.4-10.4); Platelet Count 301 thou/uL (130-400); RBC Distribution Width 18.1 % (11.5-14.5); Red Blood Cell (RBC) Count 3.22 mill/uL (4.20-5.40)
[2019-06-15 06:02] LABS: Anion Gap 13 mmol/L (10-20); BUN (Urea Nitrogen) 14 mg/dL (7.0-18.7); Calc. Creatinine Clearance 102 mL/min (70-130); Calcium 8.6 mg/dL (7.8-10.44); Carbon Dioxide 17 mmol/L (22-29); Chloride 114 mmol/L (98-107); Estimated GFR-MDRD 81; Glucose 130 mg/dL (70-105); Potassium 3.7 mmol/L (3.5-5.1); Sodium 140 mmol/L (136-145)
[2019-06-15] MEDS: Enoxaparin Sodium 40 MG/0.4 ML SYRINGE SC SCH (08:36)
[2019-06-15] MEDS: Mycophenolate 250 MG CAP PO SCH (08:36)
[2019-06-15] MEDS: Aspirin 81 mg Enteric Coated Tablet PO SCH (08:36)
[2019-06-15] MEDS: Insulin Glargine 20 UNITS in Pre-Filled Syringe 1 EACH SC SCH (08:36)
[2019-06-15] MEDS: Sodium Bicarbonate Tab 325 MG TAB PO SCH ×2 (08:37→11:16)
[2019-06-15] MEDS: cloNIDine 0.1 MG TAB PO SCH (08:37)
[2019-06-15] MEDS: Metoprolol Tartrate 25 MG TAB PO SCH (08:37)
[2019-06-15] MEDS: Tacrolimus 1 MG CAP PO SCH (08:37)
[2019-06-15] MEDS: Tacrolimus 0.5 MG CAP PO SCH (08:37)
[2019-06-15] MEDS: NIFEdipine XL 30 MG TAB PO SCH (08:37)
[2019-06-15] MEDS: predniSONE 5 MG TAB PO SCH (08:38)
--- NOTE | 2019-06-15 09:36 | PRG ---
DATE OF SERVICE: 06/15/2019 SERVICE: Renal Medicine. HISTORY OF PRESENT ILLNESS: Ms. Thompson is a 44-year-old female who is status post cadaveric renal transplant, who was admitted for DKA. She was seen also by the Renal Service for her acute kidney injury that was hemodynamically-mediated renal dysfunction. Volume repletion was done with improvement of renal function. She was also noted to be febrile at that time, was felt to may have had UTI and is on empiric IV antibiotics. Her fever is much improved. In addition, she has been noted to be progressively having worsening anemia. Consideration for GI consult will be done. No other complaints today. No chest pain or shortness of breath. OBJECTIVE: VITAL SIGNS: Blood pressure 149/60, heart rate 80, respiratory rate 16, temperature 99.7, and pulse ox 96% on room air. GENERAL: Noted to be awake, alert, comfortable, not in overt distress. SKIN: Adequate turgor. HEENT: She has slightly pale conjunctivae. Anicteric sclerae. NECK: No neck mass. No carotid bruits. No JVD. CHEST: No deformities. LUNGS: Clear breath sounds. No wheezing. No crackles. HEART: Normal sinus rhythm. No murmur. No gallops. No rubs. ABDOMEN: Globular, soft, nontender. No masses. EXTREMITIES: No edema. No deformities. MEDICATIONS: Medications of June 15, 2019, were reviewed. LABORATORY DATA: Laboratories of June 15, 2019; white count 5 and hemoglobin 7.5. Sodium 140, potassium 3.7, chloride 114, carbon dioxide 17, BUN 14, creatinine 0.77, and calcium 8.6. ASSESSMENT AND PLAN: 1. Status post cadaveric renal transplant, stable renal function. I am still awaiting the tacrolimus level. Continue current immunosuppressive regimen. 2. Acute kidney injury, resolved with IV hydration. She had a superimposed hemodynamically-mediated renal dysfunction. 3. Anemia. Check stool cards for occult blood. Consider GI consult. 4. Metabolic acidosis, currently on sodium bicarbonate. 5. Diabetic ketoacidosis, resolved. 6. Recheck basic metabolic profile and CBC in a.m. Job ID: [id number]
[2019-06-15 11:17] VITALS: BP 133/63; TEMP 97.9
[2019-06-15] MEDS: HumaLOG 300 UNITS/3 ML VIAL SC PRN (11:17)
--- NOTE | 2019-06-15 12:48 | PDOC.EVN ---
Event Note - Event Note Event Note: [id number] Dictated
--- NOTE | 2019-06-15 14:27 | DIS ---
DATE OF ADMISSION: 06/09/2019 DATE OF DISCHARGE: 06/15/2019 DISCHARGE DIAGNOSES: 1. Diabetic ketoacidosis, resolved. 2. Acute kidney injury on chronic kidney disease, improved. 3. Renal transplant patient, to continue on immunosuppressants. 4. Fever, resolved. The patient treated empirically with antibiotics. Cultures so far are negative. HOSPITAL COURSE: Ms. Thompson is a 44-year-old female who was admitted for DKA due to poor compliance with taking insulin. The patient also had an acute kidney injury on top of chronic kidney disease. The patient is a renal transplant patient, on immunosuppressants. Overall condition has been improving. The patient had a low-grade fever. Treated empirically with antibiotics. Cultures have been negative. Infectious Disease has been following. Also, the patient has hemoglobin dropped from 10 down to 7.5. The patient said that she is having her periods, which are heavy. Also, on top of IV fluids that the patient received while in the hospital. I offered the patient to wait for another day for us to monitor her hemoglobin further and may need to perform GI if it continues to drop, but the patient said that her periods are contributing to her drop in hemoglobin on top of IV fluids she received. The patient wants to go home. She said that she will follow with her primary care doctor. Also, we will give the patient oral Cipro to continue another 5 days of antibiotics. So far, the cultures have been negative. CONDITION ON DISCHARGE: Stable. ACTIVITY: As tolerated. FOLLOWUP: Follow up with primary care physician and Nephrology. DISCHARGE MEDICATIONS: Please see home medication reconciliation for discharge medications. Job ID: [id number]
[2019-06-16 09:09] LABS: Tacrolimus 13.1 ng/mL (2.0-20.0)
--- NOTE | 2019-06-16 23:00 | PQF ---
ERIC GILL MOHAMED S MD [id number] FANG HARRINGTON [id number] CLINICAL DOCUMENTATION CLARIFICATION FORM: POST DISCHARGE Addendum to original discharge summary date: ____ Late entry note date: 06/17/2019 DATE:06/16/19 ATTN: Perri Orellana Please exercise your independent, professional judgment in responding to the clarification form. Clinical indicators are provided on the bottom of this form for your review In your clinical opinion based on clinical findings below, can you please identify the condition as the reason for Inpatient admission if due to: Please check appropriate box(s): [ / ] DKA [ /] Acute Kidney Failure s/p kidney transplant [ ] Other diagnosis [ ] Unable to determine In addition, please specify: Present on Admission (POA): [ /] Yes [ ] No [ ] Unable to determine For continuity of documentation, please document condition throughout progress notes and discharge summary. Thank You. CLINICAL INDICATORS - SIGNS / SYMPTOMS / LABS Laboratory Chemistry 06/09 : POC Glucose Greater than 550 Laboratory Chemistry 06/09 :BUN 52, Creatinine 2.47 H&P p1 06/09 Dr Salgado Brought with history of 4-5 days fevers complaints as well nausea, vomiting and confusion H&P p1 06/09 Dr Salgado at bedside, the pat is oriented to self, mumbles often incohrently and spouse is present and noted that the pt is confused and not at baseline RISK FACTORS H&P p1 06/09 - past medical history of Type 1 DM H&P p1 06/09 - past medical history of ESRD s/p renal transplant H&P p3 06/09 Diabetic ketoacidosis H&P p3 06/09 Acute Metabolic Encephalopathy H&P p3 06/09 Acute kidney injury on chronic kidney disease TREATMENTS: Aug 24 1L Normal saline IV bolus Aug 24 10 units subcutaneous Insulin followed by IV regular insulin drip Aug 24 IV Zofran H&P p1 06/09 IP evaluation to IMCU H&P p3 06/09 Monitor Renal function Nephrology consult 06/10 Dl Sheehan (This form is maintained as a part of the permanent medical record) 2014 [email or web address] All Rights Reserved [email or web address] [not provided] [email or web address]
[2019-06-17 18:08] LABS: CMV DNA-PCR Test Positive < 200 IU/mL (Negative)
== END 2019-06-15 13:40 | disposition home or self-care (01) | DRG 698 ==
LOC: ERS 12:12 → ERHOLD 14:10 → IMCU/EMU 19:08 → 2NO 06-11 21:10
PROVIDERS: ADMIT Family Medicine; ATTEND Hospitalist
DX: T86.19 Other complication of kidney transplant (principal); E10.10 Type 1 diabetes mellitus with ketoacidosis without coma; G93.41 Metabolic encephalopathy; I21.A1 Myocardial infarction type 2; N17.9 Acute kidney failure, unspecified; E10.22 Type 1 diabetes mellitus with diabetic chronic kidney disease; Y83.0 Surgical operation with transplant of whole organ as the cause of abnormal reaction of the patient, or of later complication, without mention of misadventure at the time of the procedure; F32.9 Major depressive disorder, single episode, unspecified; I10 Essential (primary) hypertension; E87.8 Other disorders of electrolyte and fluid balance, not elsewhere classified; N18.3 Chronic kidney disease, stage 3 (moderate); E78.2 Mixed hyperlipidemia; R50.9 Fever, unspecified; Z79.52 Long term (current) use of systemic steroids; Z79.899 Other long term (current) drug therapy; Z79.4 Long term (current) use of insulin; Z88.8 Allergy status to other drugs, medicaments and biological substances
CPT/HCPCS: 36415; 36416; 71045; 74176; 78452; 80048; 80053; 80061; 80197; 81003; 81015; 82330; 82553; 82803; 82805; 83036; 83605; 84484; 85025; 87040; 87385; 87497; 87633; 87804; 87899; 93005; 93017; 93306; 96361; 96365; 96366; 96375; A9500; J0153; J0360; J0696; J1642; J1650; J1815; J2270; J2405; J3490; J7507; J7512; J7517

== ENCOUNTER 2021-12-09 14:56 | Outpatient (CLI) | payer BC | END 2021-12-09 14:57 | disposition home or self-care (01) | LOC: BICRAD 14:56 | PROVIDERS: ATTEND Podiatrist | DX: E11.621 Type 2 diabetes mellitus with foot ulcer (principal); L97.529 Non-pressure chronic ulcer of other part of left foot with unspecified severity ==

== ENCOUNTER 2022-03-19 13:15 | Outpatient (CLI) | payer BC, MEDICARE | END 2022-03-19 13:16 | disposition home or self-care (01) | LOC: BICRAD 13:15 | PROVIDERS: ATTEND Podiatrist | DX: M79.675 Pain in left toe(s) (principal); M19.071 Primary osteoarthritis, right ankle and foot; I70.90 Unspecified atherosclerosis ==